=== PATIENT | female | born 1955 | race Caucasian/White ===

== ENCOUNTER 2021-03-13 11:52 | Inpatient (IN) | payer MEDICARE ==
--- NOTE | 2021-03-13 12:17 | ED ---
General Adult HPI - General Chief complaint: Shortness of Breath Stated complaint: CRUZ Time Seen by Provider: 03/13/21 12:00 Source: patient, EMS, RN notes reviewed, old records reviewed Mode of arrival: EMS Limitations: no limitations - History of Present Illness Initial comments: 65-year-old female presenting for evaluation of dyspnea which has progressed over the past 3 days. She states she's had some indolent dyspnea over the past several weeks and months but really over the past 3 days this has progressed to becoming severe. She reports a dry cough. No fever. No central chest pain. She does report bilateral lower extremity edema she also reports orthopnea. She has no previous history of CAD. No history of CHF. She is otherwise quite healthy no daily medications. - Related Data Allergies Allergy/AdvReac Type Severity Reaction Status Date / Time No Known Allergies Allergy Verified 03/13/21 12:00 Review of Systems ROS Statement: Those systems with pertinent positive or pertinent negative responses have been documented in the HPI. ROS Other: All systems not noted in ROS Statement are negative. Past Medical History History of Any Multi-Drug Resistant Organisms: None Reported Past Surgical History: Section Past Psychological History: No Psychological Hx Reported Smoking Status: Never smoker Past Alcohol Use History: None Reported Past Drug Use History: None Reported General Exam Limitations: no limitations General appearance: alert, in no apparent distress Head exam: Present: atraumatic, normocephalic Eye exam: Present: normal appearance. Absent: PERRL, EOMI ENT exam: Present: normal exam Neck exam: Present: normal inspection. Absent: tenderness, meningismus Respiratory exam: Present: respiratory distress, rales, decreased breath sounds (No air entry on the right) Cardiovascular Exam: Present: regular rate, normal rhythm, other (Distant) GI/Abdominal exam: Present: soft. Absent: distended, tenderness, guarding Extremities exam: Present: pedal edema Neurological exam: Present: alert, oriented X3, CN II-XII intact. Absent: motor sensory deficit Psychiatric exam: Present: normal affect, normal mood Skin exam: Present: warm, dry, intact. Absent: cyanosis, diaphoretic Course Vital Signs 03/13/21 03/13/21 03/13/21 11:53 12:15 12:45 Temperature 97.7 F Pulse Rate 88 86 82 Respiratory 22 24 24 Rate Blood Pressure 192/107 178/102 151/100 O2 Sat by Pulse 91 L 95 95 Oximetry 03/13/21 13:15 Temperature Pulse Rate 84 Respiratory 24 Rate Blood Pressure 165/99 O2 Sat by Pulse 95 Oximetry EKG Findings - EKG Comments: EKG Findings:: EKG: Normal sinus rhythm, right atrial enlargement, right bundle branch block artifact in the lateral precordial leads. No old for comparison. Medical Decision Making - Medical Decision Making 65-year-old female with 3 days of worsening dyspnea. Patient is tachypneic with no air entry on the right. X-rays performed, showing whiteout on the right with likely effusion. Some patient's has an elevated white blood cell count, elevat ed hemoglobin. She has a hyponatremia of 116. She has a elevated AST, ALT, and alkaline phosphatase. I did perform CT angiography of the chest and CT of the abdomen pelvis with contrast. This is suggestive of a lung mass with associated effusion which is quite large. Additionally there is metastatic changes to the liver and sacrum. I did discuss case with [facility] physician's Dr. Kee, and Dr. Herman leyva for pulmonology. - Lab Data Result diagrams: 03/13/21 12:05 03/13/21 12:05 Lab Results 03/13/21 03/13/21 03/13/21 Range/Units 12:05 12:05 12:05 WBC 16.2 H (3.8-10.6) k/uL RBC 5.63 H (3.80-5.40) m/uL Hgb 17.6 H (11.4-16.0) gm/dL Hct 51.1 H (34.0-46.0) % MCV 90.7 (80.0-100.0) fL MCH 31.3 (25.0-35.0) pg MCHC 34.5 (31.0-37.0) g/dL RDW 11.1 L (11.5-15.5) % Plt Count 319 (150-450) k/uL MPV 7.6 Neutrophils % 89 % Lymphocytes % 3 % Monocytes % 6 % Eosinophils % 1 % Basophils % 0 % Neutrophils # 14.4 H (1.3-7.7) k/uL Lymphocytes # 0.5 L (1.0-4.8) k/uL Monocytes # 1.0 (0-1.0) k/uL Eosinophils # 0.2 (0-0.7) k/uL Basophils # 0.0 (0-0.2) k/uL PT 11.8 (9.0-12.0) sec INR 1.1 (<1.2) APTT 23.1 (22.0-30.0) sec Sodium 116 L* (137-145) mmol/L Potassium 4.1 (3.5-5.1) mmol/L Chloride 78 L (98-107) mmol/L Carbon Dioxide 28 (22-30) mmol/L Anion Gap 10 mmol/L BUN 12 (7-17) mg/dL Creatinine 0.35 L (0.52-1.04) mg/dL Est GFR (CKD-EPI)AfAm >90 (>60 ml/min/1.73 sqM) Est GFR (CKD-EPI)NonAf >90 (>60 ml/min/1.73 sqM) Glucose 125 H (74-99) mg/dL Plasma Lactic Acid Hector (0.7-2.0) mmol/L Calcium 9.9 (8.4-10.2) mg/dL Magnesium 1.8 (1.6-2.3) mg/dL Total Bilirubin 1.0 (0.2-1.3) mg/dL AST 86 H (14-36) U/L ALT 63 H (4-34) U/L Alkaline Phosphatase 254 H (38-126) U/L Troponin I (0.000-0.034) ng/mL NT-Pro-B Natriuret Pep pg/mL Total Protein 6.7 (6.3-8.2) g/dL Albumin 4.0 (3.5-5.0) g/dL Coronavirus (PCR) (Not Detectd) 03/13/21 03/13/21 03/13/21 Range/Units 12:05 12:05 12:05 WBC (3.8-10.6) k/uL RBC (3.80-5.40) m/uL Hgb (11.4-16.0) gm/dL Hct (34.0-46.0) % MCV (80.0-100.0) fL MCH (25.0-35.0) pg MCHC (31.0-37.0) g/dL RDW (11.5-15.5) % Plt Count (150-450) k/uL MPV Neutrophils % % Lymphocytes % % Monocytes % % Eosinophils % % Basophils % % Neutrophils # (1.3-7.7) k/uL Lymphocytes # (1.0-4.8) k/uL Monocytes # (0-1.0) k/uL Eosinophils # (0-0.7) k/uL Basophils # (0-0.2) k/uL PT (9.0-12.0) sec INR (<1.2) APTT (22.0-30.0) sec Sodium (137-145) mmol/L Potassium (3.5-5.1) mmol/L Chloride (98-107) mmol/L Carbon Dioxide (22-30) mmol/L Anion Gap mmol/L BUN (7-17) mg/dL Creatinine (0.52-1.04) mg/dL Est GFR (CKD-EPI)AfAm (>60 ml/min/1.73 sqM) Est GFR (CKD-EPI)NonAf (>60 ml/min/1.73 sqM) Glucose (74-99) mg/dL Plasma Lactic Acid Hector 1.4 (0.7-2.0) mmol/L Calcium (8.4-10.2) mg/dL Magnesium (1.6-2.3) mg/dL Total Bilirubin (0.2-1.3) mg/dL AST (14-36) U/L ALT (4-34) U/L Alkaline Phosphatase (38-126) U/L Troponin I <0.012 (0.000-0.034) ng/mL NT-Pro-B Natriuret Pep 312 pg/mL Total Protein (6.3-8.2) g/dL Albumin (3.5-5.0) g/dL Coronavirus (PCR) (Not Detectd) 03/13/21 Range/Units 12:05 WBC (3.8-10.6) k/uL RBC (3.80-5.40) m/uL Hgb (11.4-16.0) gm/dL Hct (34.0-46.0) % MCV (80.0-100.0) fL MCH (25.0-35.0) pg MCHC (31.0-37.0) g/dL RDW (11.5-15.5) % Plt Count (150-450) k/uL MPV Neutrophils % % Lymphocytes % % Monocytes % % Eosinophils % % Basophils % % Neutrophils # (1.3-7.7) k/uL Lymphocytes # (1.0-4.8) k/uL Monocytes # (0-1.0) k/uL Eosinophils # (0-0.7) k/uL Basophils # (0-0.2) k/uL PT (9.0-12.0) sec INR (<1.2) APTT (22.0-30.0) sec Sodium (137-145) mmol/L Potassium (3.5-5.1) mmol/L Chloride (98-107) mmol/L Carbon Dioxide (22-30) mmol/L Anion Gap mmol/L BUN (7-17) mg/dL Creatinine (0.52-1.04) mg/dL Est GFR (CKD-EPI)AfAm (>60 ml/min/1.73 sqM) Est GFR (CKD-EPI)NonAf (>60 ml/min/1.73 sqM) Glucose (74-99) mg/dL Plasma Lactic Acid Hector (0.7-2.0) mmol/L Calcium (8.4-10.2) mg/dL Magnesium (1.6-2.3) mg/dL Total Bilirubin (0.2-1.3) mg/dL AST (14-36) U/L ALT (4-34) U/L Alkaline Phosphatase (38-126) U/L Troponin I (0.000-0.034) ng/mL NT-Pro-B Natriuret Pep pg/mL Total Protein (6.3-8.2) g/dL Albumin (3.5-5.0) g/dL Coronavirus (PCR) Not Detected (Not Detectd) Critical Care Time Critical Care Time: Yes Total Critical Care Time: 35 Disposition Clinical Impression: Lung mass, Pleural effusion, Hyponatremia Disposition: [facility]MITT[facility] Condition: Serious Is patient prescribed a controlled substance at d/c from ED?: No Referrals: Trista Perez MD [Primary Care Provider] - 1-2 days Decision to Admit Reason: Admit from EC Decision Date: 03/13/21 Decision Time: 15:00
[2021-03-13 12:32] LABS: INR 1.1 (<1.2); Partial Thromboplastin Time 23.1 sec (22.0-30.0); Prothrombin Time 11.8 sec (9.0-12.0)
--- NOTE | 2021-03-13 12:37 | XR ---
EXAMINATION TYPE: XR chest 2V DATE OF EXAM: 03/13/2021 COMPARISON: None INDICATION: Difficulty in breathing TECHNIQUE: Frontal and lateral views of the chest are obtained. FINDINGS: The heart size is normal. The pulmonary vasculature is trauma. There is diffuse opacification through the right lung. Some deviation of the trachea to the right is present. Diffuse increased scattered infiltrates within the left lung. Correlate for atypical pneumon ia. Small right pleural effusion is likely present.. IMPRESSION: 1. Diffuse increased lung markings present bilaterally. Correlate for atypical pneumonia. Small right pleural effusion may be present. Right apical atelectasis may be present. Follow-up exams are recomm ended.
[2021-03-13 12:38] LABS: Basophils % (A) 0 %; Eosinophils # (A) 0.2 k/uL (0-0.7); Eosinophils % (A) 1 %; HCT 51.1 % (34.0-46.0); HGB 17.6 gm/dL (11.4-16.0); Lymphocytes # (A) 0.5 k/uL (1.0-4.8); Lymphocytes % (A) 3 %; MCH 31.3 pg (25.0-35.0); MCHC 34.5 g/dL (31.0-37.0); MCV 90.7 fL (80.0-100.0); Mean Platelet Volume 7.6; Monocytes % (A) 6 %; Neutrophils # (A) 14.4 k/uL (1.3-7.7); Neutrophils % (A) 89 %; Platelet Count 319 k/uL (150-450); RBC 5.63 m/uL (3.80-5.40); RDW 11.1 % (11.5-15.5); WBC 16.2 k/uL (3.8-10.6)
[2021-03-13 12:43] LABS: ALT 63 U/L (4-34); African American GFR (CKD) >90 (>60 ml/min/1.73 sqM); Anion Gap 10 mmol/L; Blood Urea Nitrogen 12 mg/dL (7-17); Calcium 9.9 mg/dL (8.4-10.2); Carbon Dioxide 28 mmol/L (22-30); Chloride 78 mmol/L (98-107); Glucose 125 mg/dL (74-99); Non-African American GFR(CKD) >90 (>60 ml/min/1.73 sqM); Total Protein 6.7 g/dL (6.3-8.2)
[2021-03-13 12:44] LABS: AST 86 U/L (14-36); Magnesium 1.8 mg/dL (1.6-2.3); Potassium 4.1 mmol/L (3.5-5.1); Sodium 116 mmol/L (137-145)
[2021-03-13 12:45] LABS: Alkaline Phosphatase 254 U/L (38-126)
[2021-03-13] MEDS ORDERED: cefTRIAXone IN SWFI 1,000 MG/10 ML SYRINGE IVP STA (12:49)
[2021-03-13] MEDS ORDERED: AZITHROMYCIN 500 MG in SODIUM CHLORIDE 0.9% 250 ML IVPB STA (12:49)
--- NOTE | 2021-03-13 13:54 | CT ---
CT CHEST FOR PULMONARY EMBOLISM. EXAMINATION TYPE: CT angio chest DATE OF EXAM: 03/13/2021 INDICATION: CRUZ, wt. loss CT DLP: 172.6 mGycm, Automated exposure control for dose reduction was used. CONTRAST: Patient injected with 100 mL of Isovue 370. COMPARISON: None TECHNIQUE: CT of the chest is performed on a spiral scan at 2 mm thick sections. Study is performed with intravenous contrast timed for evaluation for pulmonary embolism. This will limit additional po rtions of the evaluation. 3-D MIP images reconstructed by the technologist are reviewed on the compu ter in the coronal and sagittal planes. FINDINGS: No persistent filling defects are evident to suggest an acute pulmonary embolism. No mediastinal or hilar adenopathy enlarged by CT criteria is evident. The ascending aorta diameter at the level of the main pulmonary artery is 3.2 cm. The main pulmonary artery diameter at the bifur cation is 2.8 cm. Small to moderate-sized right pleural effusion is present. There is consolidation in the anterior rig ht lung. Some right middle lobe consolidation is present. Patchy infiltrates at the right lung base a nd groundglass opacities are within the left mid lung. Findings are nonspecific but can be compatible with atypical pneumonia. A 0.4 cm nodules in the periphery of the left upper lung field. Series 401 image 26. 0.9 cm nodular d ensities in the left midlung. Series 401 image 53. Posterior densities are present on the left hilar region measuring 1.3 cm, series 401 image 56, and 0.9 cm. Series 401 image 59. There is a 0.6 cm nodu le in the left infrahilar region. Series 401 image 87. A 0.8 cm nodules within the left infrahilar r egion. Series 401 image 93. Right-sided lung masses would be difficult to exclude. Limited CT section through the upper abdomen are unremarkable. IMPRESSIONS: 1. Small to moderate right pleural effusion. 2. Scattered infiltrates are nonspecific. Consider atypical pneumonia. 3. Larger consolidations or masses within the right lung with additional small nodules present identi fied on the left. Primary and metastatic disease should also be considered within the differential. 4. No acute pulmonary embolism identified.
[2021-03-13] MEDS ORDERED: NITROGLYCERIN SL TABS 0.4 MG TAB SUBLINGUAL STA (13:58)
[2021-03-13] MEDS: SODIUM CHLORIDE 0.9% 1,000 ML IV SCH (13:58)
--- NOTE | 2021-03-13 14:01 | CT ---
EXAMINATION TYPE: CT abdomen pelvis w con DATE OF EXAM: 03/13/2021 COMPARISON: None INDICATION: CRUZ, wt. loss DLP: 465.3 mGycm, Automated exposure control for dose reduction was used. CONTRAST: 100 mL of Isovue 370. Study performed without Oral Contrast TECHNIQUE: Axial images were obtained from above the diaphragm to the pubic rami in the axial plane a t 5 mm thick sections. Reconstructed images are reviewed on the computer in the coronal plane. FINDINGS: Limited CT sections are obtained the lung bases. Please see CT chest same date for additional finding s. CT ABDOMEN: Liver: There is a 3.2 cm hypodensity was somewhat irregular margins within the mid right lobe liver. Some infiltrative type process may be within the left lobe liver. Density is 54 suggesting solid lesi on. A metastatic lesion should be considered. There are some additional small hypodensities within th e more inferior portion of the liver not typical for simple cysts. Additional small metastatic lesion should be considered. Spleen: Normal Pancreas: Normal Adrenal glands: The adrenal glands are normal. Gallbladder: Normal Kidneys: No masses are evident. No hydronephrosis is present. Cortical renal cysts are present bila terally, larger on the left.. There is some malpositioning of the right kidney inferior. Delayed fannie ges were obtained through the kidneys, which remain unremarkable. Aorta: Vascular calcification is within the aorta. Inferior vena cava: Normal. CT PELVIS: The study is without oral contrast limiting bowel evaluation. Some fecal debris is within the colon. There are a few scattered diverticuli within the sigmoid colon. Bowel evaluation is limited. Appendix: There appears to be the air-filled appendix on the coronal plane images in the midline is n ormal. This is adjacent to a fluid-filled distal loop of ileum. Urinary bladder: Normal. Genitourinary structures: Uterus is unremarkable. Adnexal regions appear normal. Osseous structures: Couple of sclerotic metastasis may be within the right iliac wing. Additional scl erotic metastases may be in the left sacral alar. Facet degenerative changes are present. There are s cattered small sclerotic areas within the vertebral bodies may be early sclerotic metastases. IMPRESSIONS: 1. Mass within the liver suspicious for metastatic lesion. Additional small metastatic lesions may b e more inferior within the liver. 2. Suggestion of sclerotic metastases within sacrum and right ilium. 3. Additional suspicious findings within the chest. Please see CT chest report same date.
[2021-03-13] MEDS ORDERED: FUROSEMIDE 10 MG/ML 4 ML VIAL IV STA (14:02)
[2021-03-13] MEDS ORDERED: HYDROmorphone 0.5 MG/0.5 ML SYRINGE IVP PRN (14:55)
--- NOTE | 2021-03-13 15:47 | P.CNPUL ---
History of Present Illness Consult date: 03/13/21 Reason for consult: dyspnea History of present illness: 65-year-old here patient came into the emergency department because of worsening shortness of breath a few weeks duration. She is extremely weak, cachectic, malnourished and emancipated. She has also developed some abdominal swelling and increased lower extremity swelling over this past few months and the patient's health has been progressively getting worse. Her past medical history is negative patient does not see a physician on a regular basis. She is not a smoker. The white cell count was at 16.2 with hemoglobin of 17.6 and normal coagulation profile. Sodium level is at home and 16 with a potassium level of 4.1 BUN is 12 creatinine 0.3 LFTs are abnormal with an AST of 86, ALT of 63 with alkaline phosphatase of 254. COVID 19 testing was negative. Chest x-ray showed diffuse increased interstitial markings bilaterally and a small right-sided pleural effusion and volume loss on the right side. CT of the chest showed a moderate-sized right-sided pleural effusion. There was consolidation of the right anterior and right middle lobe. In fact the right upper lobe is very much atelectatic and there is complete cutoff of the right upper lobe bronchus which is not visualized on the CAT scan of the chest. There are several other pulmonary nodules scattered in the left upper lobe measuring 4 mm in the left mid lung measuring 9 mm in the left hilar region measuring 1.3 cm and in the left infrahilar area measuring 6 mm in addition to right-sided abnormalities as mentioned. No acute pulmonary embolism was identified. Computed tomography scan of the abdomen and pelvis showed a mass within the liver with 3.2 cm hypodensity an irregular margin in the right lobe of the liver. In same time metastatic lesions were also seen there were smaller in size. Sclerotic metastatic involvement of the sacrum and the right ilium Review of Systems Constitutional: Reports anorexia, Reports fatigue, Reports poor appetite, Reports weakness, Reports weight loss Eyes: denies as per HPI, denies blurred vision, denies bulging eye, denies decreased vision, denies diplopia, denies discharge, denies dry eye, denies irritation, denies itching, denies pain, denies photophobia, denies loss of peripheral vision, denies loss of vision, denies tunnel vision/blind spots Ears: deny: decreased hearing, ear discharge, earache, tinnitus Ears, nose, mouth and throat: Reports as per HPI Breasts: absent: as per HPI, change in shape, gynecomastia, masses, nipple discharge, pain, skin changes, swelling Cardiovascular: Reports decreased exercise tolerance, Reports dyspnea on exertion, Reports edema Respiratory: Reports cough, Reports dyspnea Gastrointestinal: Reports as per HPI, Reports loss of appetite Genitourinary: Reports as per HPI Menstruation: Reports as per HPI Musculoskeletal: Reports as per HPI, Reports muscle weakness Musculoskeletal: bilateral: ankle swelling, absent: ankle pain, ankle stiffness, as per HPI, elbow pain, elbow stiffness, elbow swelling, foot pain, foot stiffness, foot swelling, hand pain, hand stiffness, hand swelling, hip pain, hip stiffness, hip swelling, knee pain, knee stiffness, knee swelling, shoulder pain, shoulder stiffness, shoulder swelling, wrist pain, wrist stiffness, wrist swelling Integumentary: Reports as per HPI Neurological: Reports as per HPI Psychiatric: Reports as per HPI Endocrine: Reports fatigue Hematologic/Lymphatic: Reports as per HPI Allergic/Immunologic: Reports as per HPI Past Medical History History of Any Multi-Drug Resistant Organisms: None Reported Past Surgical History: Section Past Psychological History: No Psychological Hx Reported Smoking Status: Never smoker Past Alcohol Use History: None Reported Past Drug Use History: None Reported Medications and Allergies Home Medications Medication Instructions Recorded Confirmed Type No Known Home Medications 03/13/21 03/13/21 History Allergies Allergy/AdvReac Type Severity Reaction Status Date / Time No Known Allergies Allergy Verified 03/13/21 15:03 Physical Exam Vitals: Vital Signs Temp Pulse Resp BP Pulse Ox 03/13/21 13:15 84 24 165/99 95 03/13/21 12:45 82 24 151/100 95 03/13/21 12:15 86 24 178/102 95 03/13/21 11:53 97.7 F 88 22 192/107 91 L Intake and Output 03/13/21 03/13/21 03/13/21 06:59 14:59 22:59 Other: Weight 56.699 kg Cachectic, thin and frail, and emaciated, BMI of 20.8 Head exam was generally normal. There was no scleral icterus or corneal arcus. Mucous membranes were moist. Neck was supple and without jugular venous distension, thyromegaly, or carotid bruits. Carotids were easily palpable bilaterally. There was bilateral supraclavicular lymphadenopathy palpated in the cervical and supraclavicular chains Lungs sounds are diminished in the right lung base along with dullness to percussion Cardiac exam revealed the PMI to be normally situated and sized. The rhythm was regular and no extrasystoles were noted during several minutes of auscultation. The first and second heart sounds were normal and physiologic splitting of the second heart sound was noted. There were no murmurs, rubs, clicks, or gallops. Abdominal exam revealed normal bowel sounds. The abdomen was soft, non-tender, and without masses, organomegaly, or appreciable enlargement of the abdominal aorta. Extremities revealed +1-2 pitting edema no cyanosis or clubbing Neurologically appropriate awake and alert 3 Examination of the skin revealed no evidence of significant rashes, suspicious appearing nevi or other concerning lesions. 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 Based on my review of the CAT scan of the chest that is a mass obstructing the right upper lobe bronchus causing complete atelectasis and collapse of the right upper lobe and volume loss in addition to various areas of macular nodularity bilaterally and groundglass changes and a moderate-sized right-sided pleural effusion. On examination the patient has cervical lymphadenopathy bilaterally and supraclavicular lymphadenopathy and the CAT scan of the abdomen and pelvis showed hepatic metastases with a 3.2 cm right hepatic lobe mass and skeletal metastases to the sacral bone and the right ilium. Patient is a lifetime nonsmoker. This does not rule out the possibility of metastatic lung cancer. Other forms of malignancies cannot be completly ruled out. 2 hypochloremic hyponatremia, likely subacute to chronic as the patient is not having major symptoms. Rule out underlying SIADH. 3 increased lower extremity edema 4 ongoing constitutions symptomscachexia malnourishment with a BMI of 20.8 5 abnormal LFTs secondary to hepatitic metastases Plan This patient will need a tissue diagnosis. We'll make consider doing a thorace ntesis on her first thing in the morning to improve her breathing. The pleural fluid may also give us a diagnosis. Nevertheless we should be careful knowing that the right upper lobe was completely atelectatic with endobronchial tumor in the right upper lobe and a thoracentesis may give us a pneumothorax ex vacuo. based on that, I suggested obtaining asmall amount of fluid in the order of 200- 300 mL for diagnostic purposes and following that the patient may also benefit from bronchoscopy and evaluation of the right upper lobe bronchus to assess airway patency. Her right upper lobe was completely collapsed. She has other signs where biopsies can be taken including liver and cervical lymph nodes. Check serum osmolality, urine osmolality and urine sodium Monitor sodium level currently on normal saline Extremities poor prognosis based on the above-mentioned comorbidities. Oncologi c consultation.
[2021-03-13] MEDS ORDERED: MAG HYDROX/AL HYDROX/SIMETH 30 ML CUP PO PRN (16:18)
--- NOTE | 2021-03-13 16:24 | P.HPIM ---
History of Present Illness H&P Date: 03/13/21 This is a 65-year-old female with no known past medical history that presented to the emergency room with worsening shortness of breath and bilateral lower extremity edema. Patient said that shortness of breath started 2 weeks ago and is being getting progressively worse. In the last few days she also noted worsening lower extremity edema. Patient appeared cachectic in the ER and reported decreased appetite for the last few months. She admits of losing weight as well. She does not have any follow-up with any doctors and has been active her entire life. She never smoked cigarettes in the past. She was evaluated in the ER and extensive imaging showed evidence of metastatic cancer involving the liver and the sacrum. Also noted was lung nodules and bilateral pleural effusion. Patient also noted to have significant hyponatremia with sodium level of 116. She'll be admitted to the hospital for further management. Review of Systems Review of system: 14 points review of systems were obtained and were negative except to what were mentioned in the HPI. Past Medical History History of Any Multi-Drug Resistant Organisms: None Reported Past Surgical History: Section Past Psychological History: No Psychological Hx Reported Smoking Status: Never smoker Past Alcohol Use History: None Reported Past Drug Use History: None Reported Medications and Allergies Home Medications Medication Instructions Recorded Confirmed Type No Known Home Medications 03/13/21 03/13/21 History Allergies Allergy/AdvReac Type Severity Reaction Status Date / Time No Known Allergies Allergy Verified 03/13/21 15:03 Physical Exam Vitals: Vital Signs Temp Pulse Resp BP Pulse Ox 03/13/21 13:15 84 24 165/99 95 03/13/21 12:45 82 24 151/100 95 03/13/21 12:15 86 24 178/102 95 03/13/21 11:53 97.7 F 88 22 192/107 91 L Intake and Output 03/13/21 03/13/21 03/13/21 06:59 14:59 22:59 Other: Weight 56.699 kg General: The patient is awake and alert, in no distress. She appears cachectic and chronically ill Eye: there is normal conjunctiva bilaterally. Neck: The neck is supple, there is no JVD. Cardiovascular: Normal S1-S2, no S3-S4, no murmurs. Respiratory: Lungs clear to auscultation bilaterally Gastrointestinal: Abdomen is soft, nontender Musculoskeletal: There is +2 pedal edema. Neurological:. Speech is normal. Skin: Skin is warm and dry Results CBC & Chem 7: 03/13/21 12:05 03/13/21 12:05 Labs: Abnormal Lab Results - Last 24 Hours (Table) 03/13/21 03/13/21 Range/Units 12:05 12:05 WBC 16.2 H (3.8-10.6) k/uL RBC 5.63 H (3.80-5.40) m/uL Hgb 17.6 H (11.4-16.0) gm/dL Hct 51.1 H (34.0-46.0) % RDW 11.1 L (11.5-15.5) % Neutrophils # 14.4 H (1.3-7.7) k/uL Lymphocytes # 0.5 L (1.0-4.8) k/uL Sodium 116 L* (137-145) mmol/L Chloride 78 L (98-107) mmol/L Creatinine 0.35 L (0.52-1.04) mg/dL Glucose 125 H (74-99) mg/dL AST 86 H (14-36) U/L ALT 63 H (4-34) U/L Alkaline Phosphatase 254 H (38-126) U/L Assessment and Plan Assessment: This is a 65-year-old female with no known past medical history that does not usually follow-up with any doctors presented to the emergency room with worsening shortness of breath and lower extremity edema. Patient has extensive workup in the ER with computed tomography scan of the chest showing bilateral lung consolidation/masses and bilateral pleural effusion. Computed tomography scan of the abdomen showing liver masses suspicious for metastatic disease with sclerotic metastasis into the sacrum and right ilium. Patient will be admitted to the hospital for further management of her medical problems noted below. 1. Metastatic cancer of unknown origin, imaging as above. Plan for diagnostic thoracentesis tomorrow for tissue sampling. I would consult oncology for establishment of care 2. 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 Sodium level on presentation 116. Nephrology consulted for further evaluation. Started on gentle IV fluid hydration with normal saline at 75 mL per hour. I will continue to monitor her sodium level closely every 4 hours. 3. Bilateral lower extremity edema, ultrasound ordered to rule out DVT 4. Acute hypoxic respiratory failure secondary to above 5. CODE STATUS, patient is full code. Discussed in details with her today in the emergency room
--- NOTE | 2021-03-13 18:38 | US ---
EXAMINATION TYPE: US venous doppler duplex LE DATE OF EXAM: 03/13/2021 5:11 PM COMPARISON: NONE CLINICAL HISTORY: Rule out DVT. No hx of DVT. Patient has bilateral leg edema. SIDE PERFORMED: Bilateral TECHNIQUE: The lower extremity deep venous system is examined utilizing real time linear array sonog grady with graded compression, doppler sonography and color-flow sonography. VESSELS IMAGED: Common Femoral Vein Deep Femoral Vein Greater Saphenous Vein * Femoral Vein Popliteal Vein Small Saphenous Vein * Proximal Calf Veins (* superficial vessels) Right Leg: Color flow seen in all veins imaged at this time. CFV and GSV appear to compress incomple tely, thick [place] versus possible chronic internal echoes along vessel wall seen at these levels. Left Leg: Color flow seen in all veins imaged at this time. CFV, GSV and FV prox/DFV appear to comp ress incompletely, thick [place] versus possible chronic internal echoes along vessel wall seen at thes e levels. IMPRESSION: There is incomplete compressibility of the femoral vein suggestive of some mild chronic deep vein thrombosis. No evidence of acute deep vein thrombosis.
[2021-03-13 19:55] LABS: African American GFR (CKD) >90 (>60 ml/min/1.73 sqM); Anion Gap 8 mmol/L; Blood Urea Nitrogen 12 mg/dL (7-17); Calcium 9.2 mg/dL (8.4-10.2); Carbon Dioxide 31 mmol/L (22-30); Chloride 77 mmol/L (98-107); Glucose 127 mg/dL (74-99); Non-African American GFR(CKD) >90 (>60 ml/min/1.73 sqM); Potassium 3.6 mmol/L (3.5-5.1)
[2021-03-13 20:04] LABS: Sodium 116 mmol/L (137-145)
[2021-03-13] MEDS: ONDANSETRON 4 MG/2 ML VIAL IVP PRN (21:58)
[2021-03-13 23:49] LABS: African American GFR (CKD) >90 (>60 ml/min/1.73 sqM); Anion Gap 8 mmol/L; Blood Urea Nitrogen 12 mg/dL (7-17); Calcium 9.2 mg/dL (8.4-10.2); Carbon Dioxide 31 mmol/L (22-30); Chloride 78 mmol/L (98-107); Glucose 119 mg/dL (74-99); Non-African American GFR(CKD) >90 (>60 ml/min/1.73 sqM); Potassium 3.6 mmol/L (3.5-5.1)
[2021-03-14 00:23] LABS: Sodium 117 mmol/L (137-145)
[2021-03-14 03:10] LABS: African American GFR (CKD) >90 (>60 ml/min/1.73 sqM); Anion Gap 8 mmol/L; Blood Urea Nitrogen 13 mg/dL (7-17); Calcium 9.3 mg/dL (8.4-10.2); Carbon Dioxide 30 mmol/L (22-30); Chloride 78 mmol/L (98-107); Glucose 117 mg/dL (74-99); Non-African American GFR(CKD) >90 (>60 ml/min/1.73 sqM)
[2021-03-14 03:12] LABS: Potassium 3.7 mmol/L (3.5-5.1); Sodium 116 mmol/L (137-145)
[2021-03-14] MEDS: ONDANSETRON 4 MG/2 ML VIAL IVP PRN ×3 (06:11→20:39)
[2021-03-14 06:26] LABS: Basophils % (A) 0 %; Eosinophils # (A) 0.3 k/uL (0-0.7); Eosinophils % (A) 2 %; HCT 48.1 % (34.0-46.0); HGB 15.9 gm/dL (11.4-16.0); Lymphocytes # (A) 0.7 k/uL (1.0-4.8); Lymphocytes % (A) 5 %; MCH 30.9 pg (25.0-35.0); MCHC 33.1 g/dL (31.0-37.0); MCV 93.6 fL (80.0-100.0); Monocytes # (A) 1.2 k/uL (0-1.0); Monocytes % (A) 9 %; Neutrophils % (A) 81 %; Platelet Count 319 k/uL (150-450); RBC 5.14 m/uL (3.80-5.40); RDW 11.3 % (11.5-15.5); WBC 13.7 k/uL (3.8-10.6)
[2021-03-14 07:08] LABS: African American GFR (CKD) >90 (>60 ml/min/1.73 sqM); Anion Gap 5 mmol/L; Blood Urea Nitrogen 12 mg/dL (7-17); Calcium 9.6 mg/dL (8.4-10.2); Carbon Dioxide 35 mmol/L (22-30); Chloride 79 mmol/L (98-107); Glucose 116 mg/dL (74-99); Non-African American GFR(CKD) >90 (>60 ml/min/1.73 sqM); Potassium 3.8 mmol/L (3.5-5.1)
[2021-03-14 07:25] LABS: Sodium 119 mmol/L (137-145)
[2021-03-14 08:25] LABS: Glucose,Whole Blood 111 mg/dL (75-99)
[2021-03-14] MEDS: SODIUM CHLORIDE 0.9% 1,000 ML IV SCH ×2 (08:31→18:50)
[2021-03-14] MEDS: ENOXAPARIN 40 MG/0.4 ML SYRINGE SQ SCH (08:37)
--- NOTE | 2021-03-14 11:47 | US ---
EXAMINATION TYPE: US chest DATE OF EXAM: 03/14/2021 COMPARISON: NONE CLINICAL HISTORY: dyspnea. pleural effusion TECHNIQUE: Targeted ultrasound of the posterior lower Bilat EXAM MEASUREMENTS: Right Pleural Effusion pocket size: 10.6 cm Right skin surface to fluid distance: 2.9 cm Left Pleural Effusion pocket size: 0 cm Right side marked for possible thoracentesis outside the dept. Left side NOT marked Pulmonologists are able to review the images in the patient?s EMR. IMPRESSIONS: 1. Right pleural effusion
--- NOTE | 2021-03-14 12:00 | ECHOF ---
Referral Reason: MEASUREMENTS -------- HEIGHT: 165.1 cm WEIGHT: 56.7 kg BP: IVSd: 1.3 cm (0.6 - 1.1) LVIDd: 2.8 cm (3.9 - 5.3) LVPWd: 1.6 cm (0.6 - 1.1) IVSs: 1.4 cm LVIDs: 2.2 cm LVPWs: 1.6 cm LAESV Index (A-L): 13.79 ml/m Ao Diam: 3.0 cm (2.0 - 3.7) AV Cusp: 2.4 cm (1.5 - 2.6) LA Diam: 3.3 cm (2.7 - 3.8) MV EXCURSION: 11.236 mm (> 18.000) MV EF SLOPE: 34 mm/s (70 - 150) EPSS: 0.5 cm MV E Igor: 0.61 m/s MV DecT: 147 ms MV A Igor: 0.97 m/s MV E/A Ratio: 0.64 RAP: 5.00 mmHg RVSP: 43.59 mmHg FINDINGS -------- This was a technically good study. The left ventricular size is normal. There is moderate concentric left ventricular hypertrophy. O verall left ventricular systolic function is normal with, an EF between 55 - 60 %. The diastolic fi lling pattern is normal for the age of the patient 11.28. The right ventricle is normal in size. The left atrial size is normal. Normal LA size by volume 22+/-6 ml/m2. The right atrial size is normal. The aortic valve is trileaflet and appears structurally normal. The mitral valve is normal. Mild mitral regurgitation is present. The tricuspid valve appears structurally normal. Mild tricuspid regurgitation present. There is m ild pulmonary hypertension. The right ventricular systolic pressure, as measured by Doppler, is 43. 59mmHg. There is no pulmonic regurgitation present. The aortic root size is normal. Normal inferior vena cava with normal inspiratory collapse consistent with estimated right atrial pre ssure of 5 mmHg. There is no pericardial effusion. CONCLUSIONS -------- 1. The left ventricular size is normal. 2. There is moderate concentric left ventricular hypertrophy. 3. Overall left ventricular systolic function is normal with, an EF between 55 - 60 %. 4. The diastolic filling pattern is normal for the age of the patient 11.28 5. Mild mitral regurgitation is present. 6. Mild tricuspid regurgitation present. 7. There is mild pulmonary hypertension. 8. The right ventricular systolic pressure, as measured by Doppler, is 43.59mmHg. 9. There is no pericardial effusion. VISUAL MANAGER: Malena Deluna RDCS
[2021-03-14] MEDS: AZITHROMYCIN 250 MG TAB PO SCH (12:27)
--- NOTE | 2021-03-14 13:33 | P.PN ---
Subjective Progress Note Date: 03/14/21 Principal diagnosis: Acute COVID-19 pneumonia On 03/14/2021 patient seen in follow-up in the emergency department where she is awaiting a bed on selective care unit, she is currently on 15 L of oxygen pulse ox is 98%, when the patient gets up out of bed her pulse ox drops 65, she easily desaturates, she does recover with rest. Is awake and alert, currently seems to be in no acute distress, she is in sinus mechanism with a rate of 86, blood pressure stable, blood pressure is 110/79, afebrile. Patient continues on azithromycin and Rocephin for empiric antibiotic coverage, she is on 0.9 normal saline at a rate of 75 ML per hour, she is on GI and DVT prophylaxis. Labs have been reviewed, her sodium is 119, white blood cell count is 13.7, hemoglobin is 15.9, BUN is 12 and creatinine 0.62. Echocardiogram has been completed showing EF of 55-60%, mild pulmonary hypertension with right-sided pressure of 43.5 mmHg. Lower extremity Dopplers showed possibility of a chronic DVTs. Ultrasound the chest has been completed showing a right pleural effusion pocket of 10.6 cm. patient denies any chest pain, no hemoptysis. The findings of the CT chest and chest x-ray have been reviewed and there is a high possibility of metastatic lung carcinoma Objective - Vital Signs Vital signs: Vital Signs Temp 97.9 F 03/14/21 04:00 Pulse 86 03/14/21 12:00 Resp 18 03/14/21 12:00 BP 114/74 03/14/21 12:00 Pulse Ox 98 03/14/21 12:00 Intake & Output 03/13/21 03/14/21 03/14/21 18:59 06:59 18:59 Output Total 2200 Balance -2200 Weight 56.699 kg 56.699 kg Output: Urine 2200 Other: # Voids 0 - Exam GENERAL EXAM: Alert, very pleasant, 65-year-old frail looking white female, on 2 L of oxygen, comfortable in no apparent distress. HEAD: Normocephalic/atraumatic. EYES: Normal reaction of pupils, equal size. Conjunctiva pink, sclera white. NOSE: Clear with pink turbinates. THROAT: No erythema or exudates. NECK: No masses, no JVD, no thyroid enlargement, no adenopathy. CHEST: No chest wall deformity. Symmetrical expansion. LUNGS: Diminished breath sounds over right lung with no crackles, wheeze, rhonchi or dullness. CVS: Regular rate and rhythm, normal S1 and S2, no gallops, no murmurs, no rubs ABDOMEN: Soft, nontender. No hepatosplenomegaly, normal bowel sounds, no guarding or rigidity. EXTREMITIES: No clubbing, no edema, no cyanosis, 2+ pulses and upper and lower extremities. MUSCULOSKELETAL: Muscle strength and tone normal. SPINE: No scoliosis or deformity SKIN: No rashes CENTRAL NERVOUS SYSTEM: Alert and oriented -3. No focal deficits, tone is normal in all 4 extremities. PSYCHIATRIC: Alert and oriented -3. Appropriate affect. Intact judgment and insight. - Labs CBC & Chem 7: 03/14/21 06:10 03/14/21 11:54 Labs: Abnormal Lab Results - Last 24 Hours (Table) 03/13/21 03/13/21 03/14/21 Range/Units 19:11 22:52 02:17 WBC (3.8-10.6) k/uL Hct (34.0-46.0) % RDW (11.5-15.5) % Neutrophils # (1.3-7.7) k/uL Lymphocytes # (1.0-4.8) k/uL Monocytes # (0-1.0) k/uL Sodium 116 L* 117 L* 116 L* (137-145) mmol/L Chloride 77 L 78 L 78 L (98-107) mmol/L Carbon Dioxide 31 H 31 H (22-30) mmol/L Creatinine 0.45 L 0.46 L (0.52-1.04) mg/dL Glucose 127 H 119 H 117 H (74-99) mg/dL POC Glucose (mg/dL) (75-99) mg/dL 03/14/21 03/14/21 03/14/21 Range/Units 06:10 06:10 08:23 WBC 13.7 H (3.8-10.6) k/uL Hct 48.1 H (34.0-46.0) % RDW 11.3 L (11.5-15.5) % Neutrophils # 11.0 H (1.3-7.7) k/uL Lymphocytes # 0.7 L (1.0-4.8) k/uL Monocytes # 1.2 H (0-1.0) k/uL Sodium 119 L* (137-145) mmol/L Chloride 79 L (98-107) mmol/L Carbon Dioxide 35 H (22-30) mmol/L Creatinine (0.52-1.04) mg/dL Glucose 116 H (74-99) mg/dL POC Glucose (mg/dL) 111 H (75-99) mg/dL 03/14/21 Range/Units 11:54 WBC (3.8-10.6) k/uL Hct (34.0-46.0) % RDW (11.5-15.5) % Neutrophils # (1.3-7.7) k/uL Lymphocytes # (1.0-4.8) k/uL Monocytes # (0-1.0) k/uL Sodium 119 L* (137-145) mmol/L Chloride (98-107) mmol/L Carbon Dioxide (22-30) mmol/L Creatinine (0.52-1.04) mg/dL Glucose (74-99) mg/dL POC Glucose (mg/dL) (75-99) mg/dL Assessment and Plan Plan: 1 metastatic carcinoma primary lung versus metastasis to the lung. Based on my review of the CAT scan of the chest that is a mass obstructing the right upper lobe bronchus causing complete atelectasis and collapse of the right upper lobe and volume loss in addition to various areas of macular nodularity bilaterally and groundglass changes and a moderate-sized right-sided pleural effusion. On examination the patient has cervical lymphadenopathy bilaterally and supraclavicular lymphadenopathy and the CAT scan of the abdomen and pelvis showed hepatic metastases with a 3.2 cm right hepatic lobe mass and skeletal metastases to the sacral bone and the right ilium. Patient is a lifetime nonsmoker. This does not rule out the possibility of metastatic lung cancer. Other forms of malignancies cannot be completly ruled out. 2 hypochloremic hyponatremia, likely subacute to chronic as the patient is not having major symptoms. Rule out underlying SIADH. 3 increased lower extremity edema 4 ongoing constitutions symptomscachexia malnourishment with a BMI of 20.8 5 abnormal LFTs secondary to hepatitic metastases Plan: Ultrasound of the chest has been reviewed Hold Lovenox We will proceed with right-sided thoracentesis this afternoon This was discussed with the patient was agreeable to proceed Pleural fluid will be sent for cytology I performed a history & physical examination of the patient and discussed their management with my nurse practitioner, Mare Kunz. I reviewed the nurse practitioner's note and agree with the documented findings and plan of care. Lung sounds are positive for diminished breath sounds throughout the lung jain. The findings and the impression was discussed with the patient. I attest to the documentation by the nurse practitioner. Time with Patient: Greater than 30
--- NOTE | 2021-03-14 14:49 | XR ---
EXAMINATION TYPE: XR chest 1V portable DATE OF EXAM: 03/14/2021 COMPARISON: 03/13/2021 INDICATION: Status post right thoracentesis TECHNIQUE: Single frontal view of the chest is obtained. FINDINGS: The heart size is normal. The pulmonary vasculature is normal. Diffuse increased lung markings bilaterally. A small right pleural effusion is present. Loculated den sity remains at the right apex. Shift of mediastinum towards the right is evident. No pneumothorax is evident post thoracentesis. IMPRESSION: 1. Worsening bilateral lung infiltrates. 2. Small pleural effusion. No pneumothorax is evident postthoracentesis. 3. Continued opacity right apex. Consider atelectasis.
[2021-03-14 16:22] LABS: Appearance,BF Cloudy; Nucleated Cells, Body Fluid 1000 /uL; RBC, Body Fluid 400 /uL
[2021-03-14 16:50] LABS: Mononuclear WBC,Body Fluid 77 %; Polynuclear WBC,Body Fluid 22 %; Total Cells Counted,Body Fluid 100
--- NOTE | 2021-03-14 17:24 | P.PN ---
Subjective Patient is doing the same compared to yesterday. She had an episode this morning where she removed her oxygen O2 sat dropped to the low 80s. No acute events overnight reported to me by nursing staff otherwise. Objective - Vital Signs Vital signs: Vital Signs Temp 97.9 F 03/14/21 04:00 Pulse 86 03/14/21 12:00 Resp 18 03/14/21 12:00 BP 114/74 03/14/21 12:00 Pulse Ox 98 03/14/21 12:00 Intake & Output 03/13/21 03/14/21 03/14/21 18:59 06:59 18:59 Output Total 2200 Balance -2200 Weight 56.699 kg 56.699 kg Output: Urine 2200 Other: # Voids 0 - Exam General: The patient is awake and alert, in no distress Eye: there is normal conjunctiva bilaterally. Neck: The neck is supple, there is no JVD. Cardiovascular: Normal S1-S2, no S3-S4, no murmurs. Respiratory: Lungs clear to auscultation bilaterally Gastrointestinal: Abdomen is soft, nontender Musculoskeletal: There is no pedal edema. Neurological:. Speech is normal. Skin: Skin is warm and dry - Labs CBC & Chem 7: 03/14/21 06:10 03/14/21 11:54 Labs: Abnormal Lab Results - Last 24 Hours (Table) 03/13/21 03/13/21 03/14/21 Range/Units 19:11 22:52 02:17 WBC (3.8-10.6) k/uL Hct (34.0-46.0) % RDW (11.5-15.5) % Neutrophils # (1.3-7.7) k/uL Lymphocytes # (1.0-4.8) k/uL Monocytes # (0-1.0) k/uL Sodium 116 L* 117 L* 116 L* (137-145) mmol/L Chloride 77 L 78 L 78 L (98-107) mmol/L Carbon Dioxide 31 H 31 H (22-30) mmol/L Creatinine 0.45 L 0.46 L (0.52-1.04) mg/dL Glucose 127 H 119 H 117 H (74-99) mg/dL POC Glucose (mg/dL) (75-99) mg/dL 03/14/21 03/14/2103/14/21 Range/Units 06:10 06:10 08:23 WBC 13.7 H (3.8-10.6) k/uL Hct 48.1 H (34.0-46.0) % RDW 11.3 L (11.5-15.5) % Neutrophils # 11.0 H (1.3-7.7) k/uL Lymphocytes # 0.7 L (1.0-4.8) k/uL Monocytes # 1.2 H (0-1.0) k/uL Sodium 119 L* (137-145) mmol/L Chloride 79 L (98-107) mmol/L Carbon Dioxide 35 H (22-30) mmol/L Creatinine (0.52-1.04) mg/dL Glucose 116 H (74-99) mg/dL POC Glucose (mg/dL) 111 H (75-99) mg/dL 03/14/21 Range/Units 11:54 WBC (3.8-10.6) k/uL Hct (34.0-46.0) % RDW (11.5-15.5) % Neutrophils # (1.3-7.7) k/uL Lymphocytes # (1.0-4.8) k/uL Monocytes # (0-1.0) k/uL Sodium 119 L* (137-145) mmol/L Chloride (98-107) mmol/L Carbon Dioxide (22-30) mmol/L Creatinine (0.52-1.04) mg/dL Glucose (74-99) mg/dL POC Glucose (mg/dL) (75-99) mg/dL Microbiology - Last 24 Hours (Table) 03/13/21 13:38 Blood Culture - Preliminary Blood No Growth after 24 hours 03/13/21 13:38 Blood Culture - Preliminary Blood No Growth after 24 hours Assessment and Plan Assessment: This is a 65-year-old female with no known past medical history that does not usually follow-up with any doctors presented to the emergency room with worsening shortness of breath and lower extremity edema. Patient has extensive workup in the ER with computed tomography scan of the chest showing bilateral lung consolidation/masses and bilateral pleural effusion. Computed tomography scan of the abdomen showing liver masses suspicious for metastatic disease with sclerotic metastasis into the sacrum and right ilium. Patient will be admitted to the hospital for further management of her medical problems noted below. 1. Metastatic cancer of unknown origin, imaging as above. Plan for diagnostic thoracentesis tomorrow for cytology. Oncology consulted as well 2. 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 Sodi um level on presentation 116. Nephrology consulted for further evaluation. Started on gentle IV fluid hydration with normal saline at 75 mL per hour. Avoid overcorrection 3. Bilateral lower extremity edema, ultrasound ordered negative for acute DVT 4. Acute hypoxic respiratory failure secondary to above 5. CODE STATUS, patient is full code. Discussed in details with her today in the emergency room
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
[2021-03-14 18:44] LABS: Glucose,Whole Blood 132 mg/dL (75-99)
[2021-03-14] MEDS: NALOXONE 0.4 MG/ML 1 ML VIAL IV PRN ×4 (18:50→21:38)
[2021-03-14 19:38] LABS: African American GFR (CKD) >90 (>60 ml/min/1.73 sqM); Anion Gap 5 mmol/L; Blood Urea Nitrogen 14 mg/dL (7-17); Calcium 9.7 mg/dL (8.4-10.2); Carbon Dioxide 34 mmol/L (22-30); Chloride 80 mmol/L (98-107); Glucose 138 mg/dL (74-99); Magnesium 2.1 mg/dL (1.6-2.3); Non-African American GFR(CKD) >90 (>60 ml/min/1.73 sqM); Potassium 4.1 mmol/L (3.5-5.1)
[2021-03-14 19:42] LABS: ABG Base Excess 8.7 mmol/L; ABG HCO3 37 mmol/L (21-25); ABG Oxygen Saturation 95.3 % (94-97); ABG PO2 83 mmHg (83-108); ABG TCO2 40 mmol/L (19-24); Allen Test Performed? Yes
[2021-03-14 19:49] LABS: Sodium 119 mmol/L (137-145)
[2021-03-14] MEDS ORDERED: KETOROLAC 30 MG/ML 1 ML VIAL IVP PRN (19:59)
[2021-03-14 20:01] LABS: Glucose,Whole Blood 154 mg/dL (75-99)
--- NOTE | 2021-03-14 20:03 | CONS ---
CONSULTATION REASON FOR CONSULTATION: Hyponatremia. HISTORY OF PRESENT ILLNESS: Patient is a 65-year-old female who was admitted to the hospital with complaints of increased weakness, not feeling well, and she was also short of breath with worsening edema in the lower extremities. Patient had apparently not been eating or drinking much for the past 2 weeks and had increased her fluid intake. She states that she had low sodium many years ago, but has not had a low sodium recently. She was noted to have a serum sodium of 116 mEq/L on initial admission. Blood pressure has not been significantly low; in fact, it is on the higher side. Patient was given Lasix initially and she has been maintained on saline at 75 mL/hour. Repeat sodium this morning was 119. CT of the abdomen revealed liver mass with possible metastatic disease. Possible sclerotic metastasis also noted. No evidence of hydronephrosis on the CT scan. Patient also had a chest CTA which showed small to moderate right pleural effusion and consolidations versus masses in the right lung and some in the left as well. No PE was seen. PAST MEDICAL HISTORY: None. PAST SURGICAL HISTORY: . SOCIAL HISTORY: Negative for smoking, drug abuse or alcohol abuse. MEDICATIONS AT HOME PRIOR TO ADMISSION: None. ALLERGIES: NONE. REVIEW OF SYSTEMS: As per HPI. Other systems negative. ASSESSMENT: 1. Hyponatremia, currently hypervolemic. Patient received a dose of Lasix and is maintained on saline. Serum sodium did go up to 119. I will hold the saline for now and repeat sodium this afternoon. Patient may need to continue with diuresis. Etiology is likely underlying malignancy and a component of SIADH along with an element of hypervolemic hyponatremia. I will check urine osmolality. This may not be accurate, as patient did receive a dose of IV Lasix. 2. Liver mass and bilateral lung lesions with right pleural effusion, scheduled for thoracentesis. 3. Acute hypoxic respiratory failure secondary to underlying pleural effusion as well as volume overload. PLAN: Discontinue saline. Check UA. Check urine osmolality. Repeat sodium this afternoon. Increase oral intake, particularly protein. Patient will likely need some degree of free water restriction. Thank you for this consultation. Will continue to follow the patient with you during her hospitalization. MMODL / IJN: [id number] /
[2021-03-14 20:13] LABS: ABG PCO2 95 mmHg (35-45)
[2021-03-14 22:14] LABS: ABG Base Excess 8.2 mmol/L; ABG HCO3 36 mmol/L (21-25); ABG PO2 108 mmHg (83-108); ABG TCO2 39 mmol/L (19-24); Allen Test Performed? Yes
[2021-03-14] MEDS: LIDOCAINE 5% PATCH TOPICAL SCH (22:17)
[2021-03-14 22:19] LABS: ABG PCO2 93 mmHg (35-45)
--- NOTE | 2021-03-14 22:27 | PCN ---
PROCEDURE NOTE OPERATIVE REPORT: Right-sided thoracentesis. PREOPERATIVE DIAGNOSIS: Right pleural effusion. POSTOPERATIVE DIAGNOSIS: Right pleural effusion. ANESTHESIA USED: 2 mL of 1% lidocaine. PROCEDURE: The patient was placed in a sitting upright position, the area of the pleural effusion was localized by ultrasound earlier, and marking was placed roughly at the ninth intercostal space and tip of the scapula. The area at that site was prepared in a sterile fashion, drapes were applied, the area was locally anesthetized with lidocaine. Then, a 26-gauge needle was inserted at the same site, advanced into the pleural space and fluid was localized. Then a small tiny incision was made, and a standard thoracentesis catheter and needle were used. Needle was inserted at the same site, advanced into the pleural space, fluid was obtained. Then the needle was pulled out of the pleural space, and the catheter was advanced over the needle into the pleural space. Free-flowing fluid, yellow turbid fluid was removed from the right pleural space, roughly 750 mL of fluid drained, not bloody, fluid was free flowing, and sent for different diagnostic studies. Chest x-ray postoperatively showed evidence of complications. MMODL / IJN: [id number] /
[2021-03-14] MEDS ORDERED: propofoL 100 ML IV ONE (22:48)
[2021-03-14 23:09] LABS: Glucose,Whole Blood 133 mg/dL (75-99)
[2021-03-14 23:41] LABS: ABG Base Excess 10.3 mmol/L; ABG HCO3 36 mmol/L (21-25); ABG PCO2 63 mmHg (35-45); ABG PH 7.36 (7.35-7.45); ABG PO2 365 mmHg (83-108); ABG TCO2 38 mmol/L (19-24); Allen Test Performed? Yes
[2021-03-14] MEDS ORDERED: SODIUM CHLORIDE 0.9% 1,000 ML IV ONE (23:54)
--- NOTE | 2021-03-15 | XR ---
EXAMINATION TYPE: XR chest 1V DATE OF EXAM: 03/14/2021 COMPARISON: Today HISTORY: Tube placement TECHNIQUE: FINDINGS: Endotracheal tube is 4.5 cm from the jag. There is nasogastric tube in the stomach. Ther e is airspace consolidation and volume loss in the right lung. There is interstitial edema in the lef t lung. There is blunting right costophrenic angle. There is no pneumothorax. IMPRESSION: Pleural fluid and pulmonary consolidation and atelectasis in the right lung which is not changed. Pulmonary interstitial edema unchanged.
[2021-03-15 00:24] LABS: Appearance,Urine Clear (Clear); Bilirubin,Urine Negative (Negative); Blood,Urine Negative (Negative); Color,Urine Yellow; Glucose,Urine (UA) Negative (Negative); Ketones,Urine Negative (Negative); Leukocyte Esterase,Urine Negative (Negative); Nitrite,Urine Negative (Negative); Protein,Urine Trace (Negative); Specific Gravity,Urine 1.019 (1.001-1.035); Urobilinogen,Urine <2.0 mg/dL (<2.0)
[2021-03-15 00:56] LABS: ALT 55 U/L (4-34); AST 87 U/L (14-36); African American GFR (CKD) >90 (>60 ml/min/1.73 sqM); Albumin 2.7 g/dL (3.5-5.0); Alkaline Phosphatase 159 U/L (38-126); Blood Urea Nitrogen 13 mg/dL (7-17); Calcium 8.3 mg/dL (8.4-10.2); Carbon Dioxide 27 mmol/L (22-30); Chloride 87 mmol/L (98-107); Glucose 106 mg/dL (74-99); Magnesium 1.9 mg/dL (1.6-2.3); Non-African American GFR(CKD) >90 (>60 ml/min/1.73 sqM); Total Bilirubin 1.1 mg/dL (0.2-1.3)
[2021-03-15 01:07] LABS: Basophils % (A) 0 %; Eosinophils # (A) 0.1 k/uL (0-0.7); Eosinophils % (A) 1 %; HCT 45.5 % (34.0-46.0); HGB 15.3 gm/dL (11.4-16.0); Lymphocytes # (A) 0.3 k/uL (1.0-4.8); Lymphocytes % (A) 2 %; MCH 31.7 pg (25.0-35.0); MCHC 33.6 g/dL (31.0-37.0); MCV 94.2 fL (80.0-100.0); Mean Platelet Volume 6.7; Monocytes # (A) 1.2 k/uL (0-1.0); Monocytes % (A) 8 %; Neutrophils # (A) 12.6 k/uL (1.3-7.7); Neutrophils % (A) 88 %; Platelet Count 277 k/uL (150-450); RBC 4.83 m/uL (3.80-5.40); RDW 12.1 % (11.5-15.5); WBC 14.4 k/uL (3.8-10.6)
[2021-03-15 01:15] LABS: Anion Gap 4 mmol/L
[2021-03-15 01:16] LABS: Potassium 4.8 mmol/L (3.5-5.1); Sodium 118 mmol/L (137-145)
[2021-03-15 04:11] LABS: ABG Base Excess 9.7 mmol/L; ABG HCO3 34 mmol/L (21-25); ABG Oxygen Saturation 97.8 % (94-97); ABG PCO2 55 mmHg (35-45); ABG PH 7.41 (7.35-7.45); ABG PO2 83 mmHg (83-108); ABG TCO2 36 mmol/L (19-24); Allen Test Performed? Yes
[2021-03-15] MEDS: NOREPINEPHRINE 4 MG in SODIUM CHLORIDE 0.9% 250 ML IV SCH (04:45)
[2021-03-15 04:46] LABS: African American GFR (CKD) >90 (>60 ml/min/1.73 sqM); Anion Gap 7 mmol/L; Blood Urea Nitrogen 14 mg/dL (7-17); Calcium 9.3 mg/dL (8.4-10.2); Carbon Dioxide 25 mmol/L (22-30); Chloride 86 mmol/L (98-107); Glucose 94 mg/dL (74-99); Non-African American GFR(CKD) >90 (>60 ml/min/1.73 sqM)
[2021-03-15 04:47] LABS: Potassium 4.7 mmol/L (3.5-5.1); Sodium 118 mmol/L (137-145)
[2021-03-15 05:12] LABS: Glucose, BF Source Pleural Fluid; Glucose, Body Fluid 122 mg/dL; LDH, Body Fluid Source Pleural Fluid; Total Protein, Body Fluid 3340 mg/dL
[2021-03-15 05:30] LABS: Basophils # (A) 0.1 k/uL (0-0.2); Basophils % (A) 1 %; Eosinophils # (A) 0.3 k/uL (0-0.7); Eosinophils % (A) 2 %; HCT 45.4 % (34.0-46.0); HGB 15.3 gm/dL (11.4-16.0); Lymphocytes # (A) 0.5 k/uL (1.0-4.8); Lymphocytes % (A) 4 %; MCH 31.2 pg (25.0-35.0); MCHC 33.7 g/dL (31.0-37.0); MCV 92.4 fL (80.0-100.0); Mean Platelet Volume 8.4; Monocytes # (A) 2.2 k/uL (0-1.0); Monocytes % (A) 15 %; Neutrophils # (A) 11.5 k/uL (1.3-7.7); Neutrophils % (A) 77 %; Platelet Count 197 k/uL (150-450); RBC 4.91 m/uL (3.80-5.40); RDW 12.1 % (11.5-15.5)
--- NOTE | 2021-03-15 08:13 | XR ---
EXAMINATION TYPE: XR chest 1V portable DATE OF EXAM: 03/15/2021 COMPARISON: 03/14/2021 HISTORY: Tube placement TECHNIQUE: Single frontal view of the chest is obtained. FINDINGS: Large area of consolidation right upper lobe stable. ET and NG tube stable. Tip of the NG tube at the level of the GE junction. Advancement recommended. Diffuse interstitial pattern bilateral ly with additional consolidation and pleural effusion involving the right lower lung field. Findings are all stable. IMPRESSION: 1. Diffuse pleural-parenchymal changes correlate for diffuse pneumonia versus pulmonary edema. 2. Advancement of NG tube recommended.
[2021-03-15] MEDS: AZITHROMYCIN 250 MG TAB PO SCH (09:30)
[2021-03-15] MEDS: CHLORHEXIDINE GLUCONATE 15 ML CUP MUCOUS MEM SCH ×2 (09:30→20:29)
[2021-03-15] MEDS: ENOXAPARIN 40 MG/0.4 ML SYRINGE SQ SCH (09:30)
[2021-03-15] MEDS ORDERED: SODIUM CHLORIDE 0.9% 1,000 ML IV ONE (09:59)
[2021-03-15] MEDS ORDERED: TOLVAPTAN 15 MG 1/2 TABLET PO ONE (10:29)
[2021-03-15] MEDS ORDERED: CISATRACURIUM 2 MG/ML 5 ML VIAL IV ONE ×2 (10:39→10:48)
[2021-03-15] MEDS ORDERED: DEXAMETHASONE SOD PHOSPHATE 10 MG/ML 1 ML VIAL IVP STA (10:58)
[2021-03-15] MEDS ORDERED: methylPREDNISolone SOD SUCCI 40 MG/ML 1 ML VIAL IV SCH (11:00)
--- NOTE | 2021-03-15 11:18 | XR ---
EXAMINATION TYPE: XR chest 1V portable DATE OF EXAM: 03/15/2021 COMPARISON: 03/15/2021 HISTORY: Tube placement TECHNIQUE: Single frontal view of the chest is obtained. FINDINGS: Large area of consolidation right upper lobe stable. ET and NG tube stable. Tip of the NG tube at the level of the GE junction. Advancement recommended. Diffuse interstitial pattern bilateral ly with additional consolidation and pleural effusion involving the right lower lung field. Findings are all stable. IMPRESSION: 1. No evidence of pneumothorax. 2. Persistent large area of consolidation in the right upper lobe and diffuse bilateral interstitial opacities with right lower lobe infiltrate and pleural effusion stable. 3. Recommend advancement of the NG tube..
--- NOTE | 2021-03-15 12:29 | OP ---
OPERATIVE REPORT OPERATIVE REPORT: Bronchoscopy, multiple endobronchial biopsies of right upper lobe endobronchial tumor, brushings from right upper lobe endobronchial tumor, washings and lavage of the right upper lobe tumor. ANESTHESIA USED: Patient was already on propofol, and she received 7 mg of Nimbex prior to the procedure. PROCEDURE DESCRIPTION: Patient was already on mechanical ventilation, and her FiO2 was placed up at 100%. Patient was fully sedated and paralyzed with Nimbex. We monitored her O2 saturation continuously. Blood pressure was monitored continuously. Cardiac rhythm was continuously monitored. The bronchoscope was inserted through the adapter of the endotracheal tube and advanced into the distal end of the trachea. There was no evidence of any endotracheal lesions. The jag was noted to be sharp; however, as I entered the right upper lobe bronchus it was noted to be completely occluded and obstructed by a cauliflower lesion highly suggestive of squamous cell lung cancer. Then the bronchoscope was inserted and advanced further down, I was able to visualize the right middle lobe, right lower lobe, and on the left side I visualized the left upper lobe, lingula, and left lower lobe. The only abnormality was noted mostly in the right upper lobe bronchus with completely obstructing lesion of the right upper lobe bronchus. Multiple endobronchial biopsies were done of the endobronchial tumor. Brushings were done and washing of the tumor was done with lavaging the right upper lobe. I could not actually visualize the right upper lobe because of the complete obstruction noted. At any rate, the specimens were sent for different diagnostic studies. Procedure was well tolerated, no evidence of any complications. Chest x-ray was done postoperatively. No complications. MMODL / IJN: [id number] /
--- NOTE | 2021-03-15 12:33 | P.PN ---
Subjective Progress Note Date: 03/15/21 Principal diagnosis: Metastatic lung cancer On 03/14/2021 patient seen in follow-up in the emergency department where she is awaiting a bed on selective care unit, she is currently on 15 L of oxygen pulse ox is 98%, when the patient gets up out of bed her pulse ox drops 65, she easily desaturates, she does recover with rest. Is awake and alert, currently seems to be in no acute distress, she is in sinus mechanism with a rate of 86, blood pressure stable, blood pressure is 110/79, afebrile. Patient continues on azithromycin and Rocephin for empiric antibiotic coverage, she is on 0.9 normal saline at a rate of 75 ML per hour, she is on GI and DVT prophylaxis. Labs have been reviewed, her sodium is 119, white blood cell count is 13.7, hemoglobin is 15.9, BUN is 12 and creatinine 0.62. Echocardiogram has been completed showing EF of 55-60%, mild pulmonary hypertension with right-sided pressure of 43.5 mmHg. Lower extremity Dopplers showed possibility of a chronic DVTs. Ultrasound the chest has been completed showing a right pleural effusion pocket of 10.6 cm. patient denies any chest pain, no hemoptysis. The findings of the CT chest and chest x-ray have been reviewed and there is a high possibility of metastatic lung carcinoma Patient was reevaluated today on 03/15/2021, patient developed acute hypercapnic rest or with failure yesterday, may have been related to a dose of Dilaudid that she was given for pain control, patient was placed on BiPAP by the admitting physician, however continued to show significant hypercapnia with low pH, her pO2 on BiPAP at 40% was 108, and her pCO2 remained 93 with a pH of 7.20. Patient was seen by the rapid response team, intubated since her pCO2 remained high and the patient became up on that, repeat ABG post intubation showed a pO2 of 365 pCO2 of 63 pH of 7.36. Patient remained on mechanical ventilation overni ght, and today she is down to 40% FiO2 with ABG showing a pO2 of 83 pCO2 55 pH of 7.41. Obviously based on this ABG, the patient does have chronic hypercapnia and this time she had acute on chronic hypercapnic respiratory failure requiring intubation and mechanical ventilation. Sodium today is 118 potassium is 4.7 chloride is 86. BUN is 14 and creatinine 0.51 patient remains intubated and mechanically ventilated this morning, and considering the patient is intubated, discussed her condition with her daughter over the phone, and explained to the daughter that this is the best time to go ahead and proceed with bronchoscopy and endobronchial biopsy of right upper lobe endobronchial tumor. Daughter agreed with that decision, and consent was obtained over the phone. I went ahead and performed bronchoscopy and multiple endobronchial biopsies of large endobronchial tumor completely occluding the right upper lobe bronchus. Brushings of the tumor were done, and washings were also done. These were all sent to pathology. In the meantime the patient remains on assist control rate of 16 tidal volume is 350 FiO2 50%, and PEEP of 5. Objective - Vital Signs Vital signs: Vital Signs Temp 98.0 F 03/15/21 12:00 Pulse 85 03/15/21 12:15 Resp 16 03/15/21 12:15 BP 105/61 03/15/21 12:15 Pulse Ox 95 03/15/21 12:00 Intake & Output 03/14/21 03/15/21 03/15/21 18:59 06:59 18:59 Intake Total 100 2469.265 4033.202 Output Total 1225 675 Balance 100 -150.078 498.202 Weight 56.699 kg 57.3 kg Intake: IV 1020 50 KVO 20 50 Sodium Chloride 0.9% 1, 1000 000 ml @ 999 mls/hr IV . Q1H1M [facility] Rx#:[id number] Intake, IV Titration 54.922 1123.202 Amount Norepinephrine 4 mg In 11.851 73.202 Sodium Chloride 0.9% 250 ml @ 0.05 MCG/KG/MIN 10. 839 mls/hr IV .[id number] [facility] Rx#:[id number] Sodium Chloride 0.9% 1, 1000 000 ml @ 999 mls/hr IV . Q1H1M [facility] Rx#:[id number] cefTRIAXone 1 gm In 50 Sodium Chloride 0.9% 50 ml @ 100 mls/hr IVPB Q24HR [facility] Rx#:[id number] propofoL 1,000 mg In 43.071 Empty Bag 1 bag @ Titrate IV .Q0M [facility] Rx#: [id number] Oral 100 Output: Urine 1225 675 Other: Voiding Method Indwelling Catheter Indwelling Catheter - Exam Physical Exam: Revealed a 65-year-old female intubated, sedated, on mechanical ventilation, presently on propofol. Head: Atraumatic, normocephalic. Endotracheal tube is intact orogastric tube is intact. HEENT:[Neck is supple.] [No neck masses.] [No thyromegaly.] [No JVD.] Chest: [Scattered rhonchi and wheezes noted bilaterally. Cardiac Exam: [Normal S1 and S2, no S3 gallop, no murmur.] Abdomen: [Soft, nontender, no megaly, no rebound, no guarding, normal bowel sounds.] Extremities: [No clubbing, no edema, no cyanosis.] Neurological Exam: Could not assess, patient is sedated, on propofol. Psychiatric: Could not assess, patient is sedated on propofol. - Labs CBC & Chem 7: 03/15/21 03:59 03/15/21 03:59 Labs: Abnormal Lab Results - Last 24 Hours (Table) 03/14/21 03/14/21 03/14/21 Range/Units 00:10 00:10 06:10 WBC 14.4 H 13.7 H (3.8-10.6) k/uL Hct 48.1 H (34.0-46.0) % RDW 11.3 L (11.5-15.5) % Neutrophils # 12.6 H 11.0 H (1.3-7.7) k/uL Lymphocytes # 0.3 L 0.7 L (1.0-4.8) k/uL Monocytes # 1.2 H 1.2 H (0-1.0) k/uL ABG pH (7.35-7.45) ABG pCO2 (35-45) mmHg ABG pO2 (83-108) mmHg ABG HCO3 (21-25) mmol/L ABG Total CO2 (19-24) mmol/L ABG O2 Saturation (94-97) % Sodium 118 L* (137-145) mmol/L Chloride 87 L (98-107) mmol/L Carbon Dioxide (22-30) mmol/L Creatinine 0.50 L (0.52-1.04) mg/dL Glucose 106 H (74-99) mg/dL POC Glucose (mg/dL) (75-99) mg/dL Calcium 8.3 L (8.4-10.2) mg/dL AST 87 H (14-36) U/L ALT 55 H (4-34) U/L Alkaline Phosphatase 159 H (38-126) U/L Total Protein 5.0 L (6.3-8.2) g/dL Albumin 2.7 L (3.5-5.0) g/dL Procalcitonin (0.02-0.09) ng/mL Urine Protein (Negative) 03/14/21 03/14/21 03/14/21 Range/Units 11:54 11:54 18:42 WBC (3.8-10.6) k/uL Hct (34.0-46.0) % RDW (11.5-15.5) % Neutrophils # (1.3-7.7) k/uL Lymphocytes # (1.0-4.8) k/uL Monocytes # (0-1.0) k/uL ABG pH (7.35-7.45) ABG pCO2 (35-45) mmHg ABG pO2 (83-108) mmHg ABG HCO3 (21-25) mmol/L ABG Total CO2 (19-24) mmol/L ABG O2 Saturation (94-97) % Sodium 119 L* (137-145) mmol/L Chloride (98-107) mmol/L Carbon Dioxide (22-30) mmol/L Creatinine (0.52-1.04) mg/dL Glucose (74-99) mg/dL POC Glucose (mg/dL) 132 H (75-99) mg/dL Calcium (8.4-10.2) mg/dL AST (14-36) U/L ALT (4-34) U/L Alkaline Phosphatase (38-126) U/L Total Protein (6.3-8.2) g/dL Albumin (3.5-5.0) g/dL Procalcitonin 0.19 H (0.02-0.09) ng/mL Urine Protein (Negative) 03/14/21 03/14/21 03/14/21 Range/Units 18:48 19:41 19:59 WBC (3.8-10.6) k/uL Hct (34.0-46.0) % RDW (11.5-15.5) % Neutrophils # (1.3-7.7) k/uL Lymphocytes # (1.0-4.8) k/uL Monocytes # (0-1.0) k/uL ABG pH 7.20 L (7.35-7.45) ABG pCO2 95 H* (35-45) mmHg ABG pO2 (83-108) mmHg ABG HCO3 37 H (21-25) mmol/L ABG Total CO2 40 H (19-24) mmol/L ABG O2 Saturation (94-97) % Sodium 119 L* (137-145) mmol/L Chloride 80 L (98-107) mmol/L Carbon Dioxide 34 H (22-30) mmol/L Creatinine (0.52-1.04) mg/dL Glucose 138 H (74-99) mg/dL POC Glucose (mg/dL) 154 H (75-99) mg/dL Calcium (8.4-10.2) mg/dL AST (14-36) U/L ALT (4-34) U/L Alkaline Phosphatase (38-126) U/L Total Protein (6.3-8.2) g/dL Albumin (3.5-5.0) g/dL Procalcitonin (0.02-0.09) ng/mL Urine Protein (Negative) 03/14/21 03/14/21 03/14/21 Range/Units 22:08 23:07 23:36 WBC (3.8-10.6) k/uL Hct (34.0-46.0) % RDW (11.5-15.5) % Neutrophils # (1.3-7.7) k/uL Lymphocytes # (1.0-4.8) k/uL Monocytes # (0-1.0) k/uL ABG pH 7.20 L (7.35-7.45) ABG pCO2 93 H* (35-45) mmHg ABG pO2 (83-108) mmHg ABG HCO3 36 H (21-25) mmol/L ABG Total CO2 39 H (19-24) mmol/L ABG O2 Saturation 98.0 H (94-97) % Sodium (137-145) mmol/L Chloride (98-107) mmol/L Carbon Dioxide (22-30) mmol/L Creatinine (0.52-1.04) mg/dL Glucose (74-99) mg/dL POC Glucose (mg/dL) 133 H (75-99) mg/dL Calcium (8.4-10.2) mg/dL AST (14-36) U/L ALT (4-34) U/L Alkaline Phosphatase (38-126) U/L Total Protein (6.3-8.2) g/dL Albumin (3.5-5.0) g/dL Procalcitonin (0.02-0.09) ng/mL Urine Protein Trace H (Negative) 03/14/21 03/15/21 03/15/21 Range/Units 23:38 03:59 03:59 WBC 15.0 H (3.8-10.6) k/uL Hct (34.0-46.0) % RDW (11.5-15.5) % Neutrophils # 11.5 H (1.3-7.7) k/uL Lymphocytes # 0.5 L (1.0-4.8) k/uL Monocytes # 2.2 H (0-1.0) k/uL ABG pH (7.35-7.45) ABG pCO2 63 H (35-45) mmHg ABG pO2 365 H (83-108) mmHg ABG HCO3 36 H (21-25) mmol/L ABG Total CO2 38 H (19-24) mmol/L ABG O2 Saturation 100.0 H (94-97) % Sodium 118 L* (137-145) mmol/L Chloride 86 L (98-107) mmol/L Carbon Dioxide (22-30) mmol/L Creatinine 0.51 L (0.52-1.04) mg/dL Glucose (74-99) mg/dL POC Glucose (mg/dL) (75-99) mg/dL Calcium (8.4-10.2) mg/dL AST (14-36) U/L ALT (4-34) U/L Alkaline Phosphatase (38-126) U/L Total Protein (6.3-8.2) g/dL Albumin (3.5-5.0) g/dL Procalcitonin (0.02-0.09) ng/mL Urine Protein (Negative) 03/15/21 Range/Units 04:04 WBC (3.8-10.6) k/uL Hct (34.0-46.0) % RDW (11.5-15.5) % Neutrophils # (1.3-7.7) k/uL Lymphocytes # (1.0-4.8) k/uL Monocytes # (0-1.0) k/uL ABG pH (7.35-7.45) ABG pCO2 55 H (35-45) mmHg ABG pO2 (83-108) mmHg ABG HCO3 34 H (21-25) mmol/L ABG Total CO2 36 H (19-24) mmol/L ABG O2 Saturation 97.8 H (94-97) % Sodium (137-145) mmol/L Chloride (98-107) mmol/L Carbon Dioxide (22-30) mmol/L Creatinine (0.52-1.04) mg/dL Glucose (74-99) mg/dL POC Glucose (mg/dL) (75-99) mg/dL Calcium (8.4-10.2) mg/dL AST (14-36) U/L ALT (4-34) U/L Alkaline Phosphatase (38-126) U/L Total Protein (6.3-8.2) g/dL Albumin (3.5-5.0) g/dL Procalcitonin (0.02-0.09) ng/mL Urine Protein (Negative) Microbiology - Last 24 Hours (Table) 03/14/21 23:05 Gram Stain - Preliminary Sputum Sputum Culture - Preliminary 03/14/21 14:00 Gram Stain - Preliminary Pleural Fluid Body Fluid Culture - Preliminary 03/14/21 14:00 Fungal Culture - Preliminary Pleural Fluid 03/14/21 14:00 Acid Fast Bacilli Culture - Preliminary Pleural Fluid 03/14/21 14:00 Anaerobic Culture - Preliminary Pleural Fluid 03/13/21 13:38 Blood Culture - Preliminary Blood No Growth after 24 hours 03/13/21 13:38 Blood Culture - Preliminary Blood No Growth after 24 hours Assessment and Plan Assessment: Impression: Acute on chronic hypercapnic respiratory failure, likely induced by worsening bronchospasm and possible underlying COPD although the patient never smoked. This required intubation and mechanical ventilation, patient failed to respond to BiPAP. Her hypercapnia may have been exacerbated by narcotics given for pain control. 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 Considered severe. Abnormal liver enzymes most likely secondary to hepatic metastasis. Status post bronchoscopy with multiple endobronchial biopsies brushings and washings of right upper lobe endobronchial tumor obstructing the right upper lobe Bronchus. Recommendation: Continue ventilatory support. Continue bronchodilators. Continue antibiotics. Continue steroids. Start enteral feeding. May consider weaning trial today if tolerated. Continue GI and DVT prophylaxis. Overall prognosis is extremely poor and guarded, at this rate the patient is not even a candidate for any form of chemotherapy. Critical care time is over 30 minutes, not including the time spent on procedures/bronchoscopy Time with Patient: Greater than 30
--- NOTE | 2021-03-15 12:51 | PN ---
PROGRESS NOTE Patient is seen for followup for hyponatremia. Initially patient received a dose of IV Lasix. However, she had been maintained on saline as well. Her serum sodium had improved about 119 from 116, but last night patient needed to be intubated secondary to worsening mentation and respiratory status. This was thought to be related to a dose of Dilaudid that patient received. She did get Narcan x4, but she had significant CO2 retention and was therefore intubated. Blood pressure had decreased to 80s systolic and patient did receive a fluid bolus last night as well as one liter this morning. Her serum sodium has stayed about the same and it was at 118 today from 119 yesterday. The urine osmolality came back on the higher side at 421. Patient does have pulmonary lesions/masses as well as liver mass with high suspicion for metastatic disease, primary lung versus another site. This morning patient had bronchoscopy with biopsy. She also had right thoracentesis of about 700 mL done yesterday. On examination today, patient is intubated. She is on the vent, sedated. Blood pressure 105/61, heart rate 85 per minute. She is afebrile. EXAMINATION OF THE HEART: S1 and S2. EXAMINATION OF LUNGS: Bilateral breath sounds are heard. Abdomen is soft, non-tender. Examination of lower extremities shows edema 1+ bilaterally. RE[employer]URANCE CLAIMS ANALYST exam cannot be performed. Labs show sodium 118, potassium 4.7, chloride 86, BUN 14, creatinine 0.5, hemoglobin 15.3 g/dL. ASSESSMENT: 1. Hyponatremia, currently euvolemic or slightly hypervolemic with evidence of bilateral lower extremity edema, status post normal saline liter boluses x2. Sodium is at 118, down from 119. There is likely component of SIADH. I will give her a dose of tolvaptan and we will hold aggressive IV hydration unless patient is hypotensive. 2. Acute hypoxic respiratory failure secondary to underlying pulmonary masses and pleural effusion as well as respiratory depression from narcotics, status post Narcan, with no improvement in respiratory status and subsequent intubation. 3. Liver mass and lung nodules/masses. High suspicion for underlying malignancy. 4. Carbon dioxide retention and acute hypercapnic respiratory failure, status post intubation. Currently maintained on the vent. FiO2 is at 50%. PLAN: Tolvaptan x1 and repeat sodium later today. Hold saline. MMODL / IJN: [id number] /
--- NOTE | 2021-03-15 15:25 | CDI ---
Documentation Clarification Form Date: 03/15/2021 03:00:18 PM From: Alyssia Narvaez RN, CDS Admit Date: 03/13/2021 02:55:00 PM Patient Name: Milena Choi Visit Number: [id number] Discharge Date: ATTENTION: The Clinical Documentation Specialists (CDI) and [facility] Coding Staff appreciate your assistance in clarifying documentation. Please respond to the clarification below the line at the bottom and electronically sign. The CDI & [facility] Coding staff will review the response and follow-up if needed. Please note: Queries are made part of the Legal Health Record. If you have any questions, please contact the author of this message via ITS. Dr. Ketan Cheung Malnutrition is documented in the pulmonary consult on 03/13/21. Additional clarification regarding the severity of malnutrition is requested. Pulmonary notes: She is extremely weak, cachectic, malnourished and emancipated. 03/14 Oncology consult: She has noted weight loss in the last month, she has always been build, and she lost her appetite a few weeks ago. History/Risk Factors: Metastatic CA of lung and liver and sacrum, non-smoker but 2nd hand smoke exposure Clinical Indicators: 65-year-old female present to emergency department with worsening shortness of breath. 03/13 Labs: WBC 16.2, Sodium 116, chloride 78 03/14 Labs: Total protein 5.0, Albumin 2.7 Current BMI: 21.1 Insufficient energy intake: Yes Weight Loss: Yes Loss of subcutaneous fat: noted as emaciated Loss of muscle mass: emaciated, cachectic RD Consult Assessment: 05/15 (intubated and sedated in ICU, started tube feedings Inadequate oral intake Treatment: Dietary Consult: Yes Supplements: Tube Feedings monitor Lab monitoring: CBC, NA, Glucose per orders Daily weights, monitor intake and output per protocol Please clarify the type of malnutrition, if known: [ ] Mild Protein-Calorie Malnutrition [ ] Moderate Protein-Calorie Malnutrition [ ] Severe Protein-Calorie Malnutrition [ ] Other condition, please specify [ ] Unable to Determine (Template Last Revised: June 2020) MTDD
[2021-03-15] MEDS: methylPREDNISolone SOD SUCCI 40 MG/ML 1 ML VIAL IV SCH ×2 (18:10→23:11)
[2021-03-15] MEDS: DEXTROSE 5% IN WATER 1,000 ML IV SCH (18:10)
--- NOTE | 2021-03-15 18:27 | P.PN ---
Subjective Progress Note Date: 03/15/21 Principal diagnosis: lung, liver and bone lesions Pt is intubated post bronch Objective - Vital Signs Vital signs: Vital Signs Temp 98.7 F 03/15/21 16:00 Pulse 84 03/15/21 18:00 Resp 18 03/15/21 18:00 BP 89/58 03/15/21 18:00 Pulse Ox 95 03/15/21 18:00 Intake & Output 03/14/21 03/15/21 03/15/21 18:59 06:59 18:59 Intake Total 100 8053.517 6731.364 Output Total 1225 2200 Balance 100 -150.078 -868.636 Weight 56.699 kg 57.3 kg 55.7 kg Intake: IV 1020 110 KVO 20 110 Sodium Chloride 0.9% 1, 1000 000 ml @ 999 mls/hr IV . Q1H1M [facility] Rx#:[id number] Intake, IV Titration 54.922 1221.364 Amount Norepinephrine 4 mg In 11.851 86.355 Sodium Chloride 0.9% 250 ml @ 0.05 MCG/KG/MIN 10. 839 mls/hr IV .[id number] [facility] Rx#:[id number] Sodium Chloride 0.9% 1, 1000 000 ml @ 999 mls/hr IV . Q1H1M [facility] Rx#:[id number] cefTRIAXone 1 gm In 50 Sodium Chloride 0.9% 50 ml @ 100 mls/hr IVPB Q24HR [facility] Rx#:[id number] propofoL 1,000 mg In 43.071 85.009 Empty Bag 1 bag @ Titrate IV .Q0M [facility] Rx#: [id number] Oral 100 Output: Urine 1225 2200 Other: Voiding Method Indwelling Catheter Indwelling Catheter - Constitutional General appearance: Present: no acute distress, thin - Labs CBC & Chem 7: 03/15/21 03:59 03/15/21 15:04 Labs: Abnormal Lab Results - Last 24 Hours (Table) 03/14/21 03/14/21 03/14/21 Range/Units 00:10 00:10 06:10 WBC 14.4 H 13.7 H (3.8-10.6) k/uL Hct 48.1 H (34.0-46.0) % RDW 11.3 L (11.5-15.5) % Neutrophils # 12.6 H 11.0 H (1.3-7.7) k/uL Lymphocytes # 0.3 L 0.7 L (1.0-4.8) k/uL Monocytes # 1.2 H 1.2 H (0-1.0) k/uL ABG pH (7.35-7.45) ABG pCO2 (35-45) mmHg ABG pO2 (83-108) mmHg ABG HCO3 (21-25) mmol/L ABG Total CO2 (19-24) mmol/L ABG O2 Saturation (94-97) % Sodium 118 L* (137-145) mmol/L Chloride 87 L (98-107) mmol/L Carbon Dioxide (22-30) mmol/L Creatinine 0.50 L (0.52-1.04) mg/dL Glucose 106 H (74-99) mg/dL POC Glucose (mg/dL) (75-99) mg/dL Calcium 8.3 L (8.4-10.2) mg/dL AST 87 H (14-36) U/L ALT 55 H (4-34) U/L Alkaline Phosphatase 159 H (38-126) U/L Total Protein 5.0 L (6.3-8.2) g/dL Albumin 2.7 L (3.5-5.0) g/dL Procalcitonin (0.02-0.09) ng/mL Urine Protein (Negative) 03/14/21 03/14/21 03/14/21 Range/Units 11:54 18:42 18:48 WBC (3.8-10.6) k/uL Hct (34.0-46.0) % RDW (11.5-15.5) % Neutrophils # (1.3-7.7) k/uL Lymphocytes # (1.0-4.8) k/uL Monocytes # (0-1.0) k/uL ABG pH (7.35-7.45) ABG pCO2 (35-45) mmHg ABG pO2 (83-108) mmHg ABG HCO3 (21-25) mmol/L ABG Total CO2 (19-24) mmol/L ABG O2 Saturation (94-97) % Sodium 119 L* (137-145) mmol/L Chloride 80 L (98-107) mmol/L Carbon Dioxide 34 H (22-30) mmol/L Creatinine (0.52-1.04) mg/dL Glucose 138 H (74-99) mg/dL POC Glucose (mg/dL) 132 H (75-99) mg/dL Calcium (8.4-10.2) mg/dL AST (14-36) U/L ALT (4-34) U/L Alkaline Phosphatase (38-126) U/L Total Protein (6.3-8.2) g/dL Albumin (3.5-5.0) g/dL Procalcitonin 0.19 H (0.02-0.09) ng/mL Urine Protein (Negative) 03/14/21 03/14/21 03/14/21 Range/Units 19:41 19:59 22:08 WBC (3.8-10.6) k/uL Hct (34.0-46.0) % RDW (11.5-15.5) % Neutrophils # (1.3-7.7) k/uL Lymphocytes # (1.0-4.8) k/uL Monocytes # (0-1.0) k/uL ABG pH 7.20 L 7.20 L (7.35-7.45) ABG pCO2 95 H* 93 H* (35-45) mmHg ABG pO2 (83-108) mmHg ABG HCO3 37 H 36 H (21-25) mmol/L ABG Total CO2 40 H 39 H (19-24) mmol/L ABG O2 Saturation 98.0 H (94-97) % Sodium (137-145) mmol/L Chloride (98-107) mmol/L Carbon Dioxide (22-30) mmol/L Creatinine (0.52-1.04) mg/dL Glucose (74-99) mg/dL POC Glucose (mg/dL) 154 H (75-99) mg/dL Calcium (8.4-10.2) mg/dL AST (14-36) U/L ALT (4-34) U/L Alkaline Phosphatase (38-126) U/L Total Protein (6.3-8.2) g/dL Albumin (3.5-5.0) g/dL Procalcitonin (0.02-0.09) ng/mL Urine Protein (Negative) 03/14/21 03/14/21 03/14/21 Range/Units 23:07 23:36 23:38 WBC (3.8-10.6) k/uL Hct (34.0-46.0) % RDW (11.5-15.5) % Neutrophils # (1.3-7.7) k/uL Lymphocytes # (1.0-4.8) k/uL Monocytes # (0-1.0) k/uL ABG pH (7.35-7.45) ABG pCO2 63 H (35-45) mmHg ABG pO2 365 H (83-108) mmHg ABG HCO3 36 H (21-25) mmol/L ABG Total CO2 38 H (19-24) mmol/L ABG O2 Saturation 100.0 H (94-97) % Sodium (137-145) mmol/L Chloride (98-107) mmol/L Carbon Dioxide (22-30) mmol/L Creatinine (0.52-1.04) mg/dL Glucose (74-99) mg/dL POC Glucose (mg/dL) 133 H (75-99) mg/dL Calcium (8.4-10.2) mg/dL AST (14-36) U/L ALT (4-34) U/L Alkaline Phosphatase (38-126) U/L Total Protein (6.3-8.2) g/dL Albumin (3.5-5.0) g/dL Procalcitonin (0.02-0.09) ng/mL Urine Protein Trace H (Negative) 03/15/21 03/15/21 03/15/21 Range/Units 03:59 03:59 04:04 WBC 15.0 H (3.8-10.6) k/uL Hct (34.0-46.0) % RDW (11.5-15.5) % Neutrophils # 11.5 H (1.3-7.7) k/uL Lymphocytes # 0.5 L (1.0-4.8) k/uL Monocytes # 2.2 H (0-1.0) k/uL ABG pH (7.35-7.45) ABG pCO2 55 H (35-45) mmHg ABG pO2 (83-108) mmHg ABG HCO3 34 H (21-25) mmol/L ABG Total CO2 36 H (19-24) mmol/L ABG O2 Saturation 97.8 H (94-97) % Sodium 118 L* (137-145) mmol/L Chloride 86 L (98-107) mmol/L Carbon Dioxide (22-30) mmol/L Creatinine 0.51 L (0.52-1.04) mg/dL Glucose (74-99) mg/dL POC Glucose (mg/dL) (75-99) mg/dL Calcium (8.4-10.2) mg/dL AST (14-36) U/L ALT (4-34) U/L Alkaline Phosphatase (38-126) U/L Total Protein (6.3-8.2) g/dL Albumin (3.5-5.0) g/dL Procalcitonin (0.02-0.09) ng/mL Urine Protein (Negative) 03/15/21 Range/Units 15:04 WBC (3.8-10.6) k/uL Hct (34.0-46.0) % RDW (11.5-15.5) % Neutrophils # (1.3-7.7) k/uL Lymphocytes # (1.0-4.8) k/uL Monocytes # (0-1.0) k/uL ABG pH (7.35-7.45) ABG pCO2 (35-45) mmHg ABG pO2 (83-108) mmHg ABG HCO3 (21-25) mmol/L ABG Total CO2 (19-24) mmol/L ABG O2 Saturation (94-97) % Sodium 130 L (137-145) mmol/L Chloride (98-107) mmol/L Carbon Dioxide (22-30) mmol/L Creatinine (0.52-1.04) mg/dL Glucose (74-99) mg/dL POC Glucose (mg/dL) (75-99) mg/dL Calcium (8.4-10.2) mg/dL AST (14-36) U/L ALT (4-34) U/L Alkaline Phosphatase (38-126) U/L Total Protein (6.3-8.2) g/dL Albumin (3.5-5.0) g/dL Procalcitonin (0.02-0.09) ng/mL Urine Protein (Negative) Microbiology - Last 24 Hours (Table) 03/13/21 13:38 Blood Culture - Preliminary Blood No Growth after 48 hours 03/13/21 13:38 Blood Culture - Preliminary Blood No Growth after 48 hours 03/14/21 23:05 Gram Stain - Preliminary Sputum Sputum Culture - Preliminary 03/14/21 14:00 Gram Stain - Preliminary Pleural Fluid Body Fluid Culture - Preliminary 03/14/21 14:00 Fungal Culture - Preliminary Pleural Fluid 03/14/21 14:00 Acid Fast Bacilli Culture - Preliminary Pleural Fluid 03/14/21 14:00 Anaerobic Culture - Preliminary Pleural Fluid Assessment and Plan (1) Hyponatremia Current Visit: Yes Status: Acute Priority: High Code(s): E87.1 - HYPO- OSMOLALITY AND HYPONATREMIA SNOMED Code(s): 31793964 (2) Lung mass Current Visit: Yes Status: Acute Priority: High Code(s): R91.8 - OTHER NONSPECIFIC ABNORMAL FINDING OF LUNG FIELD SNOMED Code(s): 458193223 (3) Pleural effusion Current Visit: Yes Status: Acute Priority: High Code(s): J90 - PLEURAL EFFUSION, NOT ELSEWHERE CLASSIFIED SNOMED Code(s): 81834488 Plan: Clinical picture and imaging highly suggestive of a lung primary malignancy. Thoracentesis done for palliation, sent for cytology. Dr. Moon discussed case with Pulmonary. Agree with bronch and tissue biopsy. Will request NGS testing. Plan for liquid biopsy in ofc. F/U Dr. Moon 1 week. Pending MRI brain and NM bone scan to complete staging. Discussed with daughter that there is a 35% possibility of that pt will have EGFR or Alk mutation with targeted therapy as an option-with good outcomes. She understands the plan.
--- NOTE | 2021-03-15 18:29 | P.PN ---
Subjective Patient was seen and evaluated by me in the ICU this morning. She had episodes of worsening mental status last night and an ABG showed evidence of acute hypercapnic respiratory failure. Her respiratory status worsened and patient eventually was transferred to the ICU and was intubated and is currently on mechanical ventilation. She underwent a thoracentesis yesterday with approximately 750 mL of fluid removed and after intubation patient underwent bronchoscopy with bronchial washings Objective - Vital Signs Vital signs: Vital Signs Temp 98.7 F 03/15/21 16:00 Pulse 84 03/15/21 18:00 Resp 18 03/15/21 18:00 BP 89/58 03/15/21 18:00 Pulse Ox 95 03/15/21 18:00 Intake & Output 03/14/21 03/15/21 03/15/21 18:59 06:59 18:59 Intake Total 100 5083.267 0777.364 Output Total 1225 2200 Balance 100 -150.078 -868.636 Weight 56.699 kg 57.3 kg 55.7 kg Intake: IV 1020 110 KVO 20 110 Sodium Chloride 0.9% 1, 1000 000 ml @ 999 mls/hr IV . Q1H1M [facility] Rx#:[id number] Intake, IV Titration 54.922 1221.364 Amount Norepinephrine 4 mg In 11.851 86.355 Sodium Chloride 0.9% 250 ml @ 0.05 MCG/KG/MIN 10. 839 mls/hr IV .[id number] [facility] Rx#:[id number] Sodium Chloride 0.9% 1, 1000 000 ml @ 999 mls/hr IV . Q1H1M [facility] Rx#:[id number] cefTRIAXone 1 gm In 50 Sodium Chloride 0.9% 50 ml @ 100 mls/hr IVPB Q24HR [facility] Rx#:[id number] propofoL 1,000 mg In 43.071 85.009 Empty Bag 1 bag @ Titrate IV .Q0M [facility] Rx#: [id number] Oral 100 Output: Urine 1225 2200 Other: Voiding Method Indwelling Catheter Indwelling Catheter - Exam General: The patient is sedated and intubated Eye: there is normal conjunctiva bilaterally. Neck: The neck is supple, there is no JVD. Cardiovascular: Normal S1-S2, no S3-S4, no murmurs. Respiratory: Lungs clear to auscultation bilaterally Gastrointestinal: Abdomen is soft, nontender Musculoskeletal: There is +1 pedal edema. Skin: Skin is warm and dry - Labs CBC & Chem 7: 03/15/21 03:59 03/15/21 15:04 Labs: Abnormal Lab Results - Last 24 Hours (Table) 03/14/21 03/14/21 03/14/21 Range/Units 00:10 00:10 06:10 WBC 14.4 H 13.7 H (3.8-10.6) k/uL Hct 48.1 H (34.0-46.0) % RDW 11.3 L (11.5-15.5) % Neutrophils # 12.6 H 11.0 H (1.3-7.7) k/uL Lymphocytes # 0.3 L 0.7 L (1.0-4.8) k/uL Monocytes # 1.2 H 1.2 H (0-1.0) k/uL ABG pH (7.35-7.45) ABG pCO2 (35-45) mmHg ABG pO2 (83-108) mmHg ABG HCO3 (21-25) mmol/L ABG Total CO2 (19-24) mmol/L ABG O2 Saturation (94-97) % Sodium 118 L* (137-145) mmol/L Chloride 87 L (98-107) mmol/L Carbon Dioxide (22-30) mmol/L Creatinine 0.50 L (0.52-1.04) mg/dL Glucose 106 H (74-99) mg/dL POC Glucose (mg/dL) (75-99) mg/dL Calcium 8.3 L (8.4-10.2) mg/dL AST 87 H (14-36) U/L ALT 55 H (4-34) U/L Alkaline Phosphatase 159 H (38-126) U/L Total Protein 5.0 L (6.3-8.2) g/dL Albumin 2.7 L (3.5-5.0) g/dL Procalcitonin (0.02-0.09) ng/mL Urine Protein (Negative) 03/14/21 03/14/21 03/14/21 Range/Units 11:54 18:42 18:48 WBC (3.8-10.6) k/uL Hct (34.0-46.0) % RDW (11.5-15.5) % Neutrophils # (1.3-7.7) k/uL Lymphocytes # (1.0-4.8) k/uL Monocytes # (0-1.0) k/uL ABG pH (7.35-7.45) ABG pCO2 (35-45) mmHg ABG pO2 (83-108) mmHg ABG HCO3 (21-25) mmol/L ABG Total CO2 (19-24) mmol/L ABG O2 Saturation (94-97) % Sodium 119 L* (137-145) mmol/L Chloride 80 L (98-107) mmol/L Carbon Dioxide 34 H (22-30) mmol/L Creatinine (0.52-1.04) mg/dL Glucose 138 H (74-99) mg/dL POC Glucose (mg/dL) 132 H (75-99) mg/dL Calcium (8.4-10.2) mg/dL AST (14-36) U/L ALT (4-34) U/L Alkaline Phosphatase (38-126) U/L Total Protein (6.3-8.2) g/dL Albumin (3.5-5.0) g/dL Procalcitonin 0.19 H (0.02-0.09) ng/mL Urine Protein (Negative) 03/14/21 03/14/21 03/14/21 Range/Units 19:41 19:59 22:08 WBC (3.8-10.6) k/uL Hct (34.0-46.0) % RDW (11.5-15.5) % Neutrophils # (1.3-7.7) k/uL Lymphocytes # (1.0-4.8) k/uL Monocytes # (0-1.0) k/uL ABG pH 7.20 L 7.20 L (7.35-7.45) ABG pCO2 95 H* 93 H* (35-45) mmHg ABG pO2 (83-108) mmHg ABG HCO3 37 H 36 H (21-25) mmol/L ABG Total CO2 40 H 39 H (19-24) mmol/L ABG O2 Saturation 98.0 H (94-97) % Sodium (137-145) mmol/L Chloride (98-107) mmol/L Carbon Dioxide (22-30) mmol/L Creatinine (0.52-1.04) mg/dL Glucose (74-99) mg/dL POC Glucose (mg/dL) 154 H (75-99) mg/dL Calcium (8.4-10.2) mg/dL AST (14-36) U/L ALT (4-34) U/L Alkaline Phosphatase (38-126) U/L Total Protein (6.3-8.2) g/dL Albumin (3.5-5.0) g/dL Procalcitonin (0.02-0.09) ng/mL Urine Protein (Negative) 03/14/21 03/14/21 03/14/21 Range/Units 23:07 23:36 23:38 WBC (3.8-10.6) k/uL Hct (34.0-46.0) % RDW (11.5-15.5) % Neutrophils # (1.3-7.7) k/uL Lymphocytes # (1.0-4.8) k/uL Monocytes # (0-1.0) k/uL ABG pH (7.35-7.45) ABG pCO2 63 H (35-45) mmHg ABG pO2 365 H (83-108) mmHg ABG HCO3 36 H (21-25) mmol/L ABG Total CO2 38 H (19-24) mmol/L ABG O2 Saturation 100.0 H (94-97) % Sodium (137-145) mmol/L Chloride (98-107) mmol/L Carbon Dioxide (22-30) mmol/L Creatinine (0.52-1.04) mg/dL Glucose (74-99) mg/dL POC Glucose (mg/dL) 133 H (75-99) mg/dL Calcium (8.4-10.2) mg/dL AST (14-36) U/L ALT (4-34) U/L Alkaline Phosphatase (38-126) U/L Total Protein (6.3-8.2) g/dL Albumin (3.5-5.0) g/dL Procalcitonin (0.02-0.09) ng/mL Urine Protein Trace H (Negative) 03/15/21 03/15/21 03/15/21 Range/Units 03:59 03:59 04:04 WBC 15.0 H (3.8-10.6) k/uL Hct (34.0-46.0) % RDW (11.5-15.5) % Neutrophils # 11.5 H (1.3-7.7) k/uL Lymphocytes # 0.5 L (1.0-4.8) k/uL Monocytes # 2.2 H (0-1.0) k/uL ABG pH (7.35-7.45) ABG pCO2 55 H (35-45) mmHg ABG pO2 (83-108) mmHg ABG HCO3 34 H (21-25) mmol/L ABG Total CO2 36 H (19-24) mmol/L ABG O2 Saturation 97.8 H (94-97) % Sodium 118 L* (137-145) mmol/L Chloride 86 L (98-107) mmol/L Carbon Dioxide (22-30) mmol/L Creatinine 0.51 L (0.52-1.04) mg/dL Glucose (74-99) mg/dL POC Glucose (mg/dL) (75-99) mg/dL Calcium (8.4-10.2) mg/dL AST (14-36) U/L ALT (4-34) U/L Alkaline Phosphatase (38-126) U/L Total Protein (6.3-8.2) g/dL Albumin (3.5-5.0) g/dL Procalcitonin (0.02-0.09) ng/mL Urine Protein (Negative) 03/15/21 Range/Units 15:04 WBC (3.8-10.6) k/uL Hct (34.0-46.0) % RDW (11.5-15.5) % Neutrophils # (1.3-7.7) k/uL Lymphocytes # (1.0-4.8) k/uL Monocytes # (0-1.0) k/uL ABG pH (7.35-7.45) ABG pCO2 (35-45) mmHg ABG pO2 (83-108) mmHg ABG HCO3 (21-25) mmol/L ABG Total CO2 (19-24) mmol/L ABG O2 Saturation (94-97) % Sodium 130 L (137-145) mmol/L Chloride (98-107) mmol/L Carbon Dioxide (22-30) mmol/L Creatinine (0.52-1.04) mg/dL Glucose (74-99) mg/dL POC Glucose (mg/dL) (75-99) mg/dL Calcium (8.4-10.2) mg/dL AST (14-36) U/L ALT (4-34) U/L Alkaline Phosphatase (38-126) U/L Total Protein (6.3-8.2) g/dL Albumin (3.5-5.0) g/dL Procalcitonin (0.02-0.09) ng/mL Urine Protein (Negative) Microbiology - Last 24 Hours (Table) 03/13/21 13:38 Blood Culture - Preliminary Blood No Growth after 48 hours 03/13/21 13:38 Blood Culture - Preliminary Blood No Growth after 48 hours 03/14/21 23:05 Gram Stain - Preliminary Sputum Sputum Culture - Preliminary 03/14/21 14:00 Gram Stain - Preliminary Pleural Fluid Body Fluid Culture - Preliminary 03/14/21 14:00 Fungal Culture - Preliminary Pleural Fluid 03/14/21 14:00 Acid Fast Bacilli Culture - Preliminary Pleural Fluid 03/14/21 14:00 Anaerobic Culture - Preliminary Pleural Fluid Assessment and Plan Assessment: This is a 65-year-old female with no known past medical history that does not usually follow-up with any doctors presented to the emergency room with worsening shortness of breath and lower extremity edema. Patient has extensive workup in the ER with computed tomography scan of the chest showing bilateral lung consolidation/masses and bilateral pleural effusion. Computed tomography scan of the abdomen showing liver masses suspicious for metastatic disease with sclerotic metastasis into the sacrum and right ilium. Patient will be admitted to the hospital for further management of her medical problems noted below. 1. Metastatic cancer most likely primary lung status post bronchoscopy with evidence of right upper lobe endobronchial tumor obstructing the right upper lobe bronchus status post BAL. Status post diagnostic right-sided thoracentesis 2. Acute hypercapnic respiratory failure requiring sedation and mechanical intubation on 03/14 3. Acute toxo metabolic encephalopathy secondary to above 4. 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 Sodium level on presentation 116. Nephrology consulted and following closely Started on gentle IV fluid hydration. s/p Samsca x1. Avoid overcorrection 5. Bilateral lower extremity edema, ultrasound ordered negative for acute DVT 6. Acute hypoxic respiratory failure secondary to above 7. Mild to moderate malnutrition with low BMI, probably secondary to underlying malignancy. dietitian will be consulted when patient's clinical status allowed to do so 8. CODE STATUS, patient is full code. Discussed in details with her today in the emergency room
--- NOTE | 2021-03-15 19:26 | P.EN ---
since earlier this evening patient starting having changes in mental status and became more lethargic. she initially responded to narcan , and ABG showed acute hypercapnic respiratory acidosis , BIpap attempted for short period initially after he mentation improved with narcan, however, she was very resistant to care and screaming to remove the bipap. at that point it was discontinued, patient sgnificantly improved and following commands. follow up ABG done after one hour, still showing acute hypercapnia , and now her mentation was worsening again, at this point she is not responsive to narcan. decision made for elective intubation for vent support case discussed with ICU attending
[2021-03-15] MEDS: LIDOCAINE 5% PATCH TOPICAL SCH (20:29)
[2021-03-15 23:16] LABS: Glucose,Whole Blood 167 mg/dL (75-99)
[2021-03-16 05:11] LABS: Basophils % (A) 0 %; Eosinophils # (A) 0.1 k/uL (0-0.7); Eosinophils % (A) 1 %; HCT 46.9 % (34.0-46.0); HGB 15.7 gm/dL (11.4-16.0); Lymphocytes # (A) 0.3 k/uL (1.0-4.8); Lymphocytes % (A) 2 %; MCH 31.6 pg (25.0-35.0); MCHC 33.5 g/dL (31.0-37.0); MCV 94.4 fL (80.0-100.0); Mean Platelet Volume 7.5; Monocytes # (A) 0.8 k/uL (0-1.0); Monocytes % (A) 5 %; Neutrophils # (A) 13.7 k/uL (1.3-7.7); Neutrophils % (A) 91 %; Platelet Count 336 k/uL (150-450); RBC 4.97 m/uL (3.80-5.40); RDW 12.1 % (11.5-15.5)
[2021-03-16] MEDS: methylPREDNISolone SOD SUCCI 40 MG/ML 1 ML VIAL IV SCH ×3 (05:12→18:00)
[2021-03-16] MEDS: NOREPINEPHRINE 4 MG in SODIUM CHLORIDE 0.9% 250 ML IV SCH (05:14)
[2021-03-16] MEDS: DEXTROSE 5% IN WATER 1,000 ML IV SCH (05:15)
[2021-03-16 05:28] LABS: African American GFR (CKD) >90 (>60 ml/min/1.73 sqM); Anion Gap 4 mmol/L; Blood Urea Nitrogen 17 mg/dL (7-17); Calcium 9.2 mg/dL (8.4-10.2); Carbon Dioxide 29 mmol/L (22-30); Chloride 92 mmol/L (98-107); Glucose 361 mg/dL (74-99); Non-African American GFR(CKD) >90 (>60 ml/min/1.73 sqM); Potassium 3.9 mmol/L (3.5-5.1); Sodium 125 mmol/L (137-145)
[2021-03-16] MEDS ORDERED: Potassium Replacement Protocol 1 EACH MISC MISCELLANE PRN (06:03)
[2021-03-16] MEDS ORDERED: POTASSIUM BICARBONATE/CIT AC 20 MEQ TABLET.EFF NG-TUBE SCH (07:00)
--- NOTE | 2021-03-16 07:36 | XR ---
EXAMINATION TYPE: XR chest 1V portable DATE OF EXAM: 03/16/2021 CLINICAL HISTORY: Difficulty breathing progress study. TECHNIQUE: Single AP portable upright view of the chest is obtained. COMPARISON: Chest x-ray from one day earlier and older studies. CTA chest 3 days ago. FINDINGS: Stable endotracheal and orogastric tubes with side port above diaphragmatic hiatus, advise advancing the latter 8 to 9 cm. Persistent completely opacified right lung apex likely corresponding to obstructing suprahilar mass w ith postobstructive atelectasis as there is right upper lung volume loss. Persistent small to moderat e-sized right pleural effusion with associated right lung edema and/or infiltrates. Scattered reticul onodular opacities throughout the left lung redemonstrated. Cardiac silhouette size is stable and wit hin normal limits. Osseous structures remain demineralized. Underlying scoliosis redemonstrated. IMPRESSION: 1. Stable small to moderate size right pleural effusion. Stable right upper lung masslike consolidati on likely reflecting underlying mass or neoplasm and peripheral postobstructive atelectasis. Right-si ded volume loss. Bilateral right greater than left multifocal acute opacities or infiltrates are pres ent. No significant change from one day earlier. Advise orogastric tube advancement.
[2021-03-16 08:40] LABS: ABG Base Excess 10.5 mmol/L; ABG HCO3 35 mmol/L (21-25); ABG Oxygen Saturation 98.4 % (94-97); ABG PCO2 51 mmHg (35-45); ABG PH 7.44 (7.35-7.45); ABG PO2 113 mmHg (83-108); ABG TCO2 36 mmol/L (19-24); Allen Test Performed? Yes
[2021-03-16] MEDS: CHLORHEXIDINE GLUCONATE 15 ML CUP MUCOUS MEM SCH (09:24)
[2021-03-16] MEDS: AZITHROMYCIN 250 MG TAB PO SCH (09:24)
[2021-03-16] MEDS: ENOXAPARIN 40 MG/0.4 ML SYRINGE SQ SCH (09:24)
[2021-03-16] MEDS ORDERED: DEXMEDETOMIDINE/0.9% NACL(PMX) 400 MCG in EMPTY BAG 1 BAG IV SCH (10:15)
[2021-03-16 12:00] LABS: Glucose,Whole Blood 162 mg/dL (75-99)
--- NOTE | 2021-03-16 12:08 | P.PN ---
Subjective Patient remains sedated and intubated. No acute events overnight reported to me by nursing staff. Objective - Vital Signs Vital signs: Vital Signs Temp 98.8 F 03/16/21 08:00 Pulse 81 03/16/21 11:00 Resp 27 H 03/16/21 11:00 BP 113/73 03/16/21 11:00 Pulse Ox 94 L 03/16/21 11:00 Intake & Output 03/15/21 03/16/21 03/16/21 18:59 06:59 18:59 Intake Total 5929.208 5637.200 551 Output Total 2200 1290 505 Balance -868.636 216.200 46 Weight 55.7 kg 54.6 kg Intake: IV 110 835 425 Dextrose 5% in Water 1, 825 375 000 ml @ 75 mls/hr IV . [id number] [facility] Rx#:[id number] KVO 110 10 cefTRIAXone 1 gm In 50 Sodium Chloride 0.9% 50 ml @ 100 mls/hr IVPB Q24HR [facility] Rx#:[id number] Intake, IV Titration 1221.364 229.200 Amount Norepinephrine 4 mg In 86.355 Sodium Chloride 0.9% 250 ml @ 0.05 MCG/KG/MIN 10. 839 mls/hr IV .[id number] [facility] Rx#:[id number] Sodium Chloride 0.9% 1, 1000 000 ml @ 999 mls/hr IV . Q1H1M [facility] Rx#:[id number] cefTRIAXone 1 gm In 50 Sodium Chloride 0.9% 50 ml @ 100 mls/hr IVPB Q24HR [facility] Rx#:[id number] propofoL 1,000 mg In 85.009 229.200 Empty Bag 1 bag @ Titrate IV .Q0M [facility] Rx#: [id number] Tube Feeding 352 96 Other 90 30 Output: Urine 2200 1290 505 Other: Voiding Method Indwelling Catheter Indwelling Catheter Indwelling Catheter - Exam General: The patient is sedated and intubated Eye: there is normal conjunctiva bilaterally. Neck: The neck is supple, there is no JVD. Cardiovascular: Normal S1-S2, no S3-S4, no murmurs. Respiratory: Lungs clear to auscultation bilaterally Gastrointestinal: Abdomen is soft, nontender Musculoskeletal: There is +1 pedal edema. Skin: Skin is warm and dry - Labs CBC & Chem 7: 03/16/21 04:41 03/16/21 04:41 Labs: Abnormal Lab Results - Last 24 Hours (Table) 03/15/21 03/15/21 03/15/21 Range/Units 15:04 22:04 23:15 WBC (3.8-10.6) k/uL Hct (34.0-46.0) % Neutrophils # (1.3-7.7) k/uL Lymphocytes # (1.0-4.8) k/uL Sodium 130 L 130 L (137-145) mmol/L Chloride (98-107) mmol/L Glucose (74-99) mg/dL POC Glucose (mg/dL) 167 H (75-99) mg/dL 03/16/21 03/16/21 03/16/21 Range/Units 04:41 04:41 11:58 WBC 15.0 H (3.8-10.6) k/uL Hct 46.9 H (34.0-46.0) % Neutrophils # 13.7 H (1.3-7.7) k/uL Lymphocytes # 0.3 L (1.0-4.8) k/uL Sodium 125 L (137-145) mmol/L Chloride 92 L (98-107) mmol/L Glucose 361 H (74-99) mg/dL POC Glucose (mg/dL) 162 H (75-99) mg/dL Microbiology - Last 24 Hours (Table) 03/14/21 00:10 Blood Culture - Preliminary Blood No Growth after 24 hours 03/14/21 14:00 Gram Stain - Preliminary Pleural Fluid Body Fluid Culture - Preliminary 03/14/21 14:00 Acid Fast Bacilli Smear - Final Pleural Fluid Acid Fast Bacilli Culture - Preliminary 03/13/21 13:38 Blood Culture - Preliminary Blood No Growth after 48 hours 03/13/21 13:38 Blood Culture - Preliminary Blood No Growth after 48 hours 03/14/21 23:05 Gram Stain - Preliminary Sputum Sputum Culture - Preliminary Assessment and Plan Assessment: This is a 65-year-old female with no known past medical history that does not usually follow-up with any doctors presented to the emergency room with worsening shortness of breath and lower extremity edema. Patient has extensive workup in the ER with computed tomography scan of the chest showing bilateral lung consolidation/masses and bilateral pleural effusion. Computed tomography scan of the abdomen showing liver masses suspicious for metastatic disease with sclerotic metastasis into the sacrum and right ilium. Patient will be admitted to the hospital for further management of her medical problems noted below. 1. Metastatic cancer most likely primary lung status post bronchoscopy with evidence of right upper lobe endobronchial tumor obstructing the right upper lobe bronchus status post BAL. Status post diagnostic right-sided thoracentesis 2. Acute hypercapnic respiratory failure requiring sedation and mechanical intubation on 03/14 3. Acute toxo metabolic encephalopathy secondary to above 4. 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 Sodium level on presentation 116. Nephrology consulted and following closely Started on gentle IV fluid hydration. s/p Samsca x1. Avoid overcorrection 5. Bilateral lower extremity edema, ultrasound ordered negative for acute DVT 6. Acute hypoxic respiratory failure secondary to above 7. Mild to moderate malnutrition with low BMI, probably secondary to underlying malignancy. dietitian will be consulted when patient's clinical status allowed to do so 8. CODE STATUS, patient is full code. Discussed in details with her today in the emergency room Continue ICU care and supportive care. Awaiting pathology report.
[2021-03-16] MEDS ORDERED: INSULIN ASPART (NovoLOG) 100 UNIT/ML VIAL SQ SCH (12:15)
--- NOTE | 2021-03-16 13:21 | P.PN ---
Subjective Progress Note Date: 03/16/21 Principal diagnosis: lung, liver and bone lesions Pt is extubated when seen, she is sitting up in bed, she responds appropriately, she denies any pain, SOB. Objective - Vital Signs Vital signs: Vital Signs Temp 98.8 F 03/16/21 08:00 Pulse 81 03/16/21 11:00 Resp 27 H 03/16/21 11:00 BP 113/73 03/16/21 11:00 Pulse Ox 94 L 03/16/21 11:00 Intake & Output 03/15/21 03/16/21 03/16/21 18:59 06:59 18:59 Intake Total 3129.548 3080.200 551 Output Total 2200 1290 505 Balance -868.636 216.200 46 Weight 55.7 kg 54.6 kg Intake: IV 110 835 425 Dextrose 5% in Water 1, 825 375 000 ml @ 75 mls/hr IV . [id number] [facility] Rx#:[id number] KVO 110 10 cefTRIAXone 1 gm In 50 Sodium Chloride 0.9% 50 ml @ 100 mls/hr IVPB Q24HR [facility] Rx#:[id number] Intake, IV Titration 1221.364 229.200 Amount Norepinephrine 4 mg In 86.355 Sodium Chloride 0.9% 250 ml @ 0.05 MCG/KG/MIN 10. 839 mls/hr IV .[id number] [facility] Rx#:[id number] Sodium Chloride 0.9% 1, 1000 000 ml @ 999 mls/hr IV . Q1H1M [facility] Rx#:[id number] cefTRIAXone 1 gm In 50 Sodium Chloride 0.9% 50 ml @ 100 mls/hr IVPB Q24HR [facility] Rx#:[id number] propofoL 1,000 mg In 85.009 229.200 Empty Bag 1 bag @ Titrate IV .Q0M [facility] Rx#: [id number] Tube Feeding 352 96 Other 90 30 Output: Urine 2200 1290 505 Other: Voiding Method Indwelling Catheter Indwelling Catheter Indwelling Catheter - Constitutional General appearance: Present: cooperative, no acute distress, thin - EENT Eyes: Present: anicteric sclerae, EOMI ENT: Present: hearing grossly normal - Musculoskeletal Musculoskeletal: Present: generalized weakness - Psychiatric Psychiatric: Present: A&O x's 3, appropriate affect, intact judgment & insight - Labs CBC & Chem 7: 11/17/21 04:41 03/16/21 04:41 Labs: Abnormal Lab Results - Last 24 Hours (Table) 03/15/21 03/15/21 03/15/21 Range/Units 15:04 22:04 23:15 WBC (3.8-10.6) k/uL Hct (34.0-46.0) % Neutrophils # (1.3-7.7) k/uL Lymphocytes # (1.0-4.8) k/uL ABG pCO2 (35-45) mmHg ABG pO2 (83-108) mmHg ABG HCO3 (21-25) mmol/L ABG Total CO2 (19-24) mmol/L ABG O2 Saturation (94-97) % Sodium 130 L 130 L (137-145) mmol/L Chloride (98-107) mmol/L Glucose (74-99) mg/dL POC Glucose (mg/dL) 167 H (75-99) mg/dL 03/16/21 03/16/21 03/16/21 Range/Units 04:41 04:41 08:38 WBC 15.0 H (3.8-10.6) k/uL Hct 46.9 H (34.0-46.0) % Neutrophils # 13.7 H (1.3-7.7) k/uL Lymphocytes # 0.3 L (1.0-4.8) k/uL ABG pCO2 51 H (35-45) mmHg ABG pO2 113 H (83-108) mmHg ABG HCO3 35 H (21-25) mmol/L ABG Total CO2 36 H (19-24) mmol/L ABG O2 Saturation 98.4 H (94-97) % Sodium 125 L (137-145) mmol/L Chloride 92 L (98-107) mmol/L Glucose 361 H (74-99) mg/dL POC Glucose (mg/dL) (75-99) mg/dL 03/16/21 Range/Units 11:58 WBC (3.8-10.6) k/uL Hct (34.0-46.0) % Neutrophils # (1.3-7.7) k/uL Lymphocytes # (1.0-4.8) k/uL ABG pCO2 (35-45) mmHg ABG pO2 (83-108) mmHg ABG HCO3 (21-25) mmol/L ABG Total CO2 (19-24) mmol/L ABG O2 Saturation (94-97) % Sodium (137-145) mmol/L Chloride (98-107) mmol/L Glucose (74-99) mg/dL POC Glucose (mg/dL) 162 H (75-99) mg/dL Microbiology - Last 24 Hours (Table) 03/14/21 23:05 Gram Stain - Preliminary Sputum Sputum Culture - Preliminary Martha albicans 03/14/21 00:10 Blood Culture - Preliminary Blood No Growth after 24 hours 03/14/21 14:00 Gram Stain - Preliminary Pleural Fluid Body Fluid Culture - Preliminary 03/14/21 14:00 Acid Fast Bacilli Smear - Final Pleural Fluid Acid Fast Bacilli Culture - Preliminary 03/13/21 13:38 Blood Culture - Preliminary Blood No Growth after 48 hours 03/13/21 13:38 Blood Culture - Preliminary Blood No Growth after 48 hours Assessment and Plan (1) Hyponatremia Current Visit: Yes Status: Acute Priority: High Code(s): E87.1 - HYPO- OSMOLALITY AND HYPONATREMIA SNOMED Code(s): 74229021 (2) Lung mass Current Visit: Yes Status: Acute Priority: High Code(s): R91.8 - OTHER NONSPECIFIC ABNORMAL FINDING OF LUNG FIELD SNOMED Code(s): 605397771 (3) Pleural effusion Current Visit: Yes Status: Acute Priority: High Code(s): J90 - PLEURAL EFFUSION, NOT ELSEWHERE CLASSIFIED SNOMED Code(s): 83843728 Plan: Clinical picture and imaging highly suggestive of a lung primary malignancy. Thoracentesis done for palliation, sent for cytology. S/P bronch and tissue biopsy. Tissue request for NGS testing will be sent. Plan for liquid biopsy in ofc. F/U Dr. Moon scheduled, in chart. Pending MRI brain and NM bone scan to complete staging.
--- NOTE | 2021-03-16 13:27 | P.PN ---
Subjective Progress Note Date: 03/16/21 Principal diagnosis: Metastatic lung cancer On 03/14/2021 patient seen in follow-up in the emergency department where she is awaiting a bed on selective care unit, she is currently on 15 L of oxygen pulse ox is 98%, when the patient gets up out of bed her pulse ox drops 65, she easily desaturates, she does recover with rest. Is awake and alert, currently seems to be in no acute distress, she is in sinus mechanism with a rate of 86, blood pressure stable, blood pressure is 110/79, afebrile. Patient continues on azithromycin and Rocephin for empiric antibiotic coverage, she is on 0.9 normal saline at a rate of 75 ML per hour, she is on GI and DVT prophylaxis. Labs have been reviewed, her sodium is 119, white blood cell count is 13.7, hemoglobin is 15.9, BUN is 12 and creatinine 0.62. Echocardiogram has been completed showing EF of 55-60%, mild pulmonary hypertension with right-sided pressure of 43.5 mmHg. Lower extremity Dopplers showed possibility of a chronic DVTs. Ultrasound the chest has been completed showing a right pleural effusion pocket of 10.6 cm. patient denies any chest pain, no hemoptysis. The findings of the CT chest and chest x-ray have been reviewed and there is a high possibility of metastatic lung carcinoma Patient was reevaluated today on 03/15/2021, patient developed acute hypercapnic rest or with failure yesterday, may have been related to a dose of Dilaudid that she was given for pain control, patient was placed on BiPAP by the admitting physician, however continued to show significant hypercapnia with low pH, her pO2 on BiPAP at 40% was 108, and her pCO2 remained 93 with a pH of 7.20. Patient was seen by the rapid response team, intubated since her pCO2 remained high and the patient became up on that, repeat ABG post intubation showed a pO2 of 365 pCO2 of 63 pH of 7.36. Patient remained on mechanical ventilation overni ght, and today she is down to 40% FiO2 with ABG showing a pO2 of 83 pCO2 55 pH of 7.41. Obviously based on this ABG, the patient does have chronic hypercapnia and this time she had acute on chronic hypercapnic respiratory failure requiring intubation and mechanical ventilation. Sodium today is 118 potassium is 4.7 chloride is 86. BUN is 14 and creatinine 0.51 patient remains intubated and mechanically ventilated this morning, and considering the patient is intubated, discussed her condition with her daughter over the phone, and explained to the daughter that this is the best time to go ahead and proceed with bronchoscopy and endobronchial biopsy of right upper lobe endobronchial tumor. Daughter agreed with that decision, and consent was obtained over the phone. I went ahead and performed bronchoscopy and multiple endobronchial biopsies of large endobronchial tumor completely occluding the right upper lobe bronchus. Brushings of the tumor were done, and washings were also done. These were all sent to pathology. In the meantime the patient remains on assist control rate of 16 tidal volume is 350 FiO2 50%, and PEEP of 5. Reevaluated today on 03/16/2021, patient remains intubated and mechanically ventilated. She is presently on assist control rate of 16 tidal volume of 350 FiO2 50% and PEEP of 5. EG showed a pO2 of 113 pCO2 of 51 pH of 7.44. Sodium today is 125, the rest of the labs are basically unremarkable. Chest x-ray continues to show right upper lobe consolidation, and opacification, there is also a right-sided pleural effusion and right lower lobe atelectasis. Left side showed multifocal opacities or infiltrates. Patient was on propofol, and I have recommended stopping the propofol, considering Precedex, however will start the weaning process after propofol was discontinued. As the patient was more awake, I was able to transition the patient to pressure support of 8 and CPAP, and she seemed to do quite well with a pressure support 8 and CPAP. And I proceeded to extubating the patient to a nasal cannula with BiPAP at bedside if necessary. Patient was extubated uneventfully, and she will be maintained on her usual bronchodilators, we will continue to monitor the patient in the ICU today. Objective - Vital Signs Vital signs: Vital Signs Temp 98.8 F 03/16/21 08:00 Pulse 81 03/16/21 11:00 Resp 27 H 03/16/21 11:00 BP 113/73 03/16/21 11:00 Pulse Ox 94 L 03/16/21 11:00 Intake & Output 03/15/21 03/16/21 03/16/21 18:59 06:59 18:59 Intake Total 8409.476 8542.200 551 Output Total 2200 1290 505 Balance -868.636 216.200 46 Weight 55.7 kg 54.6 kg Intake: IV 110 835 425 Dextrose 5% in Water 1, 825 375 000 ml @ 75 mls/hr IV . [id number] [facility] Rx#:[id number] KVO 110 10 cefTRIAXone 1 gm In 50 Sodium Chloride 0.9% 50 ml @ 100 mls/hr IVPB Q24HR [facility] Rx#:[id number] Intake, IV Titration 1221.364 229.200 Amount Norepinephrine 4 mg In 86.355 Sodium Chloride 0.9% 250 ml @ 0.05 MCG/KG/MIN 10. 839 mls/hr IV .[id number] [facility] Rx#:[id number] Sodium Chloride 0.9% 1, 1000 000 ml @ 999 mls/hr IV . Q1H1M [facility] Rx#:[id number] cefTRIAXone 1 gm In 50 Sodium Chloride 0.9% 50 ml @ 100 mls/hr IVPB Q24HR [facility] Rx#:[id number] propofoL 1,000 mg In 85.009 229.200 Empty Bag 1 bag @ Titrate IV .Q0M [facility] Rx#: [id number] Tube Feeding 352 96 Other 90 30 Output: Urine 2200 1290 505 Other: Voiding Method Indwelling Catheter Indwelling Catheter Indwelling Catheter - Exam Physical Exam: Revealed a 65-year-old female intubated, sedated, on mechanical ventilation, presently on propofol. Which I have discontinued and shortly after place the patient on pressure support of 8 and CPAP Head: Atraumatic, normocephalic. Endotracheal tube is intact orogastric tube is intact. HEENT:[Neck is supple.] [No neck masses.] [No thyromegaly.] [No JVD.] Chest: [Scattered rhonchi bilaterally.. Cardiac Exam: [Normal S1 and S2, no S3 gallop, no murmur.] Abdomen: [Soft, nontender, no megaly, no rebound, no guarding, normal bowel sounds.] Extremities: [No clubbing, no edema, no cyanosis.] Neurological Exam: Off propofol, patient was noted to be appropriate, and followed simple instructions. Psychiatric: Off propofol patient had normal mood affect and normal mental status examination. - Labs CBC & Chem 7: 03/16/21 04:41 03/16/21 04:41 Labs: Abnormal Lab Results - Last 24 Hours (Table) 03/15/21 03/15/21 03/15/21 Range/Units 15:04 22:04 23:15 WBC (3.8-10.6) k/uL Hct (34.0-46.0) % Neutrophils # (1.3-7.7) k/uL Lymphocytes # (1.0-4.8) k/uL ABG pCO2 (35-45) mmHg ABG pO2 (83-108) mmHg ABG HCO3 (21-25) mmol/L ABG Total CO2 (19-24) mmol/L ABG O2 Saturation (94-97) % Sodium 130 L 130 L (137-145) mmol/L Chloride (98-107) mmol/L Glucose (74-99) mg/dL POC Glucose (mg/dL) 167 H (75-99) mg/dL 03/16/21 03/16/21 03/16/21 Range/Units 04:41 04:41 08:38 WBC 15.0 H (3.8-10.6) k/uL Hct 46.9 H (34.0-46.0) % Neutrophils # 13.7 H (1.3-7.7) k/uL Lymphocytes # 0.3 L (1.0-4.8) k/uL ABG pCO2 51 H (35-45) mmHg ABG pO2 113 H (83-108) mmHg ABG HCO3 35 H (21-25) mmol/L ABG Total CO2 36 H (19-24) mmol/L ABG O2 Saturation 98.4 H (94-97) % Sodium 125 L (137-145) mmol/L Chloride 92 L (98-107) mmol/L Glucose 361 H (74-99) mg/dL POC Glucose (mg/dL) (75-99) mg/dL 03/16/21 Range/Units 11:58 WBC (3.8-10.6) k/uL Hct (34.0-46.0) % Neutrophils # (1.3-7.7) k/uL Lymphocytes # (1.0-4.8) k/uL ABG pCO2 (35-45) mmHg ABG pO2 (83-108) mmHg ABG HCO3 (21-25) mmol/L ABG Total CO2 (19-24) mmol/L ABG O2 Saturation (94-97) % Sodium (137-145) mmol/L Chloride (98-107) mmol/L Glucose (74-99) mg/dL POC Glucose (mg/dL) 162 H (75-99) mg/dL Microbiology - Last 24 Hours (Table) 03/14/21 23:05 Gram Stain - Preliminary Sputum Sputum Culture - Preliminary Martha albicans 03/14/21 00:10 Blood Culture - Preliminary Blood No Growth after 24 hours 03/14/21 14:00 Gram Stain - Preliminary Pleural Fluid Body Fluid Culture - Preliminary 03/14/21 14:00 Acid Fast Bacilli Smear - Final Pleural Fluid Acid Fast Bacilli Culture - Preliminary 03/13/21 13:38 Blood Culture - Preliminary Blood No Growth after 48 hours 03/13/21 13:38 Blood Culture - Preliminary Blood No Growth after 48 hours Assessment and Plan Assessment: Impression: Acute on chronic hypercapnic respiratory failure, likely induced by worsening bronchospasm and possible underlying COPD although the patient never smoked. This required intubation and mechanical ventilation, patient failed to respond to BiPAP. Her hypercapnia may have been exacerbated by narcotics given for pain control. 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 Considered severe. Abnormal liver enzymes most likely secondary to hepatic metastasis. Status post bronchoscopy with multiple endobronchial biopsies brushings and washings of right upper lobe endobronchial tumor obstructing the right upper lobe Bronchus. This was done on 03/15/2021. Recommendation: Will give the patient a weaning trial on pressure support of 8 and CPAP, and we'll likely proceed to extubating the patient today. Continue bronchodilators. Continue antibiotics. Continue steroids. Continue GI and DVT prophylaxis. Overall prognosis is extremely poor and guarded, updated her daughter about her condition yesterday after bronchoscopy Critical care time is over 30 minutes Time with Patient: Greater than 30
[2021-03-16] MEDS: ONDANSETRON 4 MG/2 ML VIAL IVP PRN (13:42)
--- NOTE | 2021-03-16 15:19 | PN ---
PROGRESS NOTE Patient is seen for followup for hyponatremia. Patient's sodium had increased to 130 yesterday after she had gotten a dose of tolvaptan, and subsequently she was started on D5W. She remained around 130 as of last night but this morning was down to 125. In the meantime, patient has also been extubated. She is awake, not in any acute distress. On examination today, blood pressure is 113/73, heart rate 81 per minute. She is afebrile. EXAMINATION OF THE HEART: S1 and S2. EXAMINATION OF LUNGS: Bilateral breath sounds are heard. Abdomen is soft. Examination of lower extremities shows 1+ edema. ME[employer]ER exam shows patient is slightly confused. She is moving all 4 extremities. Labs show sodium 125, potassium 3.9, chloride 92. CO2 is 29, BUN 17, creatinine 0.5. ASSESSMENT: 1. Hyponatremia with high urine osmolality on admission. It is improved with tolvaptan and had not improved significantly with saline initially. Suggestive of underlying SIADH. However, serum sodium had increased to 130 yesterday and therefore patient was started on D5W. This morning it is down to 125 and the D5W has been discontinued. Hopefully patient will be eating and she can maintain her sodium levels. The D5W was started in an attempt to avoid further increase in the sodium since it was a rapid rise from 118 to 130 in a matter of 8 to 9 hours. 2. Liver mass and lung nodules with high suspicion for underlying malignancy with right pleural effusion, status post thoracentesis. Biopsies still pending. Patient had BAL. 3. Acute hypercapnic respiratory failure requiring mechanical intubation, currently extubated. 4. Lower extremity edema with low albumin levels, clinically otherwise not significantly hypervolemic. No evidence of DVT in the lower extremities. PLAN: Discontinue D5W. Repeat labs. Repeat sodium in about 4 to 6 hours. Continue close monitoring of serum sodium levels. MMODL / IJN: [id number] /
--- NOTE | 2021-03-16 16:35 | MR ---
EXAMINATION TYPE: MR brain wo/w con DATE OF EXAM: 03/16/2021 COMPARISON: NONE HISTORY: lung mass, liver lesions. Suspected metastatic lung cancer. TECHNIQUE: Multiplanar, multisequence images of the brain and brainstem is performed without and with IV contras t, utilizing 5.5 mL intravenous Gadavist . FINDINGS: Diffusion weighted images demonstrate no evidence of a recent infarct or other diffusion ab normality. There is mild ventricular and sulcal prominence. Scattered small foci of T2 hyperintensit y are seen throughout the white matter bilaterally. Approximately 15-20 scattered lesions are seen. T hese are nonspecific in appearance and distribution. Midline structures demonstrate normal morphology. The craniocervical junction appears within normal limits. Post contrast images demonstrate no abnormal enhancement. The dural venous sinuses appear pa tent. The visualized sinuses are clear and the globes are intact. Nasal septum slightly deviated to r ight of midline. Nonspecific diffuse bilateral parotid prominence and enhancement, correlate clinical ly. IMPRESSION: 1. No suspicious enhancing masses to suggest metastatic disease to the brain. 2. Background mild diffuse cerebral atrophy and chronic small vessel ischemic changes. 3. Symmetric prominent and diffusely enhancing parotid glands raises concern for bilateral parotitis, correlate clinically.
[2021-03-16] MEDS: SODIUM CHLORIDE 0.9% 1,000 ML IV SCH (16:57)
[2021-03-16 17:26] LABS: Glucose,Whole Blood 162 mg/dL (75-99)
[2021-03-16] MEDS: INSULIN ASPART (NovoLOG) 100 UNIT/ML VIAL SQ SCH ×2 (18:00→20:44)
[2021-03-16 20:41] LABS: Glucose,Whole Blood 140 mg/dL (75-99)
[2021-03-16] MEDS: LIDOCAINE 5% PATCH TOPICAL SCH (20:42)
[2021-03-17] MEDS: methylPREDNISolone SOD SUCCI 40 MG/ML 1 ML VIAL IV SCH ×3 (00:40→20:28)
[2021-03-17] MEDS: MELATONIN 5 MG TABLET PO PRN ×2 (00:40→20:26)
[2021-03-17] MEDS: SODIUM CHLORIDE 0.9% 1,000 ML IV SCH ×2 (00:44→14:40)
[2021-03-17] MEDS: NOREPINEPHRINE 4 MG in SODIUM CHLORIDE 0.9% 250 ML IV SCH (04:13)
[2021-03-17 05:09] LABS: Basophils % (A) 0 %; Eosinophils # (A) 0.1 k/uL (0-0.7); Eosinophils % (A) 1 %; HCT 44.8 % (34.0-46.0); HGB 14.2 gm/dL (11.4-16.0); Lymphocytes # (A) 0.3 k/uL (1.0-4.8); Lymphocytes % (A) 2 %; MCH 30.5 pg (25.0-35.0); MCHC 31.6 g/dL (31.0-37.0); MCV 96.6 fL (80.0-100.0); Mean Platelet Volume 7.1; Monocytes # (A) 0.7 k/uL (0-1.0); Monocytes % (A) 3 %; Neutrophils # (A) 18.9 k/uL (1.3-7.7); Neutrophils % (A) 94 %; Platelet Count 334 k/uL (150-450); RBC 4.64 m/uL (3.80-5.40); RDW 11.4 % (11.5-15.5); WBC 20.1 k/uL (3.8-10.6)
[2021-03-17 05:20] LABS: African American GFR (CKD) >90 (>60 ml/min/1.73 sqM); Anion Gap 1 mmol/L; Blood Urea Nitrogen 13 mg/dL (7-17); Calcium 8.8 mg/dL (8.4-10.2); Carbon Dioxide 32 mmol/L (22-30); Chloride 99 mmol/L (98-107); Glucose 137 mg/dL (74-99); Non-African American GFR(CKD) >90 (>60 ml/min/1.73 sqM); Potassium 4.1 mmol/L (3.5-5.1); Sodium 132 mmol/L (137-145)
[2021-03-17] MEDS: INSULIN ASPART (NovoLOG) 100 UNIT/ML VIAL SQ SCH ×4 (06:09→20:23)
[2021-03-17] MEDS: AZITHROMYCIN 250 MG TAB PO SCH (08:53)
[2021-03-17] MEDS: ENOXAPARIN 40 MG/0.4 ML SYRINGE SQ SCH (08:53)
--- NOTE | 2021-03-17 08:56 | XR ---
EXAMINATION TYPE: XR chest 1V portable DATE OF EXAM: 03/17/2021 COMPARISON: 03/16/2021 INDICATION: Tube placement TECHNIQUE: Single frontal view of the chest is obtained. FINDINGS: The heart size is normal. The pulmonary vasculature is normal. There is opacification through the right lung with infiltrate evident within the aerated right lung. Diffuse mild increased lung markings at the left lung. Findings are stable. Lines and catheters been removed over the interval. IMPRESSION: 1. Stable appearance of lung findings. Continued follow-up is recommended.
[2021-03-17] MEDS: ALPRAZolam 0.25 MG TAB PO PRN ×2 (10:03→17:53)
--- NOTE | 2021-03-17 11:36 | P.PN ---
Subjective Patient was extubated successfully yesterday. She is sitting in the chair today. She does not have any complaints. Objective - Vital Signs Vital signs: Vital Signs Temp 97.8 F 03/17/21 08:00 Pulse 83 03/17/21 10:00 Resp 24 03/17/21 10:00 BP 118/72 03/17/21 10:00 Pulse Ox 93 L 03/17/21 09:00 Intake & Output 03/16/21 03/17/21 03/17/21 18:59 06:59 18:59 Intake Total 1076 900 475 Output Total 1305 830 160 Balance -229 70 315 Intake: IV 950 900 275 Dextrose 5% in Water 1, 675 000 ml @ 75 mls/hr IV . [id number] [facility] Rx#:[id number] Sodium Chloride 0.9% 1, 225 900 225 000 ml @ 75 mls/hr IV . [id number] [facility] Rx#:[id number] cefTRIAXone 1 gm In 50 50 Sodium Chloride 0.9% 50 ml @ 100 mls/hr IVPB Q24HR [facility] Rx#:[id number] Oral 200 Tube Feeding 96 Other 30 Output: Urine 1305 830 160 Other: Voiding Method Indwelling Catheter Indwelling Catheter Indwelling Catheter - Exam General: The patient is awake and alert, in no distress. Patient is cachectic and appeared chronically ill Eye: there is normal conjunctiva bilaterally. Neck: The neck is supple, there is no JVD. Cardiovascular: Normal S1-S2, no S3-S4, no murmurs. Respiratory: Lungs clear to auscultation bilaterally Gastrointestinal: Abdomen is soft, nontender Musculoskeletal: There is no pedal edema. Neurological:. Speech is normal. Skin: Skin is warm and dry - Labs CBC & Chem 7: 03/17/21 04:46 03/17/21 04:46 Labs: Abnormal Lab Results - Last 24 Hours (Table) 03/16/21 03/16/21 03/16/21 Range/Units 08:38 11:58 17:24 WBC (3.8-10.6) k/uL RDW (11.5-15.5) % Neutrophils # (1.3-7.7) k/uL Lymphocytes # (1.0-4.8) k/uL ABG pCO2 51 H (35-45) mmHg ABG pO2 113 H (83-108) mmHg ABG HCO3 35 H (21-25) mmol/L ABG Total CO2 36 H (19-24) mmol/L ABG O2 Saturation 98.4 H (94-97) % Sodium (137-145) mmol/L Carbon Dioxide (22-30) mmol/L Creatinine (0.52-1.04) mg/dL Glucose (74-99) mg/dL POC Glucose (mg/dL) 162 H 162 H (75-99) mg/dL 03/16/21 03/16/21 03/17/21 Range/Units 17:39 20:40 04:46 WBC 20.1 H (3.8-10.6) k/uL RDW 11.4 L (11.5-15.5) % Neutrophils # 18.9 H (1.3-7.7) k/uL Lymphocytes # 0.3 L (1.0-4.8) k/uL ABG pCO2 (35-45) mmHg ABG pO2 (83-108) mmHg ABG HCO3 (21-25) mmol/L ABG Total CO2 (19-24) mmol/L ABG O2 Saturation (94-97) % Sodium 130 L (137-145) mmol/L Carbon Dioxide (22-30) mmol/L Creatinine (0.52-1.04) mg/dL Glucose (74-99) mg/dL POC Glucose (mg/dL) 140 H (75-99) mg/dL 03/17/21 Range/Units 04:46 WBC (3.8-10.6) k/uL RDW (11.5-15.5) % Neutrophils # (1.3-7.7) k/uL Lymphocytes # (1.0-4.8) k/uL ABG pCO2 (35-45) mmHg ABG pO2 (83-108) mmHg ABG HCO3 (21-25) mmol/L ABG Total CO2 (19-24) mmol/L ABG O2 Saturation (94-97) % Sodium 132 L (137-145) mmol/L Carbon Dioxide 32 H (22-30) mmol/L Creatinine 0.42 L (0.52-1.04) mg/dL Glucose 137 H (74-99) mg/dL POC Glucose (mg/dL) (75-99) mg/dL Microbiology - Last 24 Hours (Table) 03/14/21 00:10 Blood Culture - Preliminary Blood No Growth after 48 hours 03/14/21 14:00 Anaerobic Culture - Preliminary Pleural Fluid 03/14/21 14:00 Gram Stain - Preliminary Pleural Fluid Body Fluid Culture - Preliminary 03/16/21 10:15 Fungal Culture - Preliminary Bronchial Washings - Right 03/16/21 10:15 Bronchial Washings Culture - Preliminary Bronchial Washings - Right 03/16/21 10:15 Acid Fast Bacilli Culture - Preliminary Bronchial Washings - Right 03/13/21 13:38 Blood Culture - Preliminary Blood No Growth after 72 hours 03/13/21 13:38 Blood Culture - Preliminary Blood No Growth after 72 hours 03/14/21 23:05 Gram Stain - Preliminary Sputum Sputum Culture - Preliminary Martha albicans Assessment and Plan Assessment: This is a 65-year-old female with no known past medical history that does not usually follow-up with any doctors presented to the emergency room with worsening shortness of breath and lower extremity edema. Patient has extensive workup in the ER with computed tomography scan of the chest showing bilateral lung consolidation/masses and bilateral pleural effusion. Computed tomography scan of the abdomen showing liver masses suspicious for metastatic disease with sclerotic metastasis into the sacrum and right ilium. Patient will be admitted to the hospital for further management of her medical problems noted below. 1. Metastatic cancer most likely primary lung status post bronchoscopy with evidence of right upper lobe endobronchial tumor obstructing the right upper lobe bronchus status post BAL. Status post diagnostic right-sided thoracentesis 2. Acute hypercapnic respiratory failure requiring sedation and mechanical int ubation on 03/14 successfully extubated on 03/16 3. Acute toxo metabolic encephalopathy secondary to above 4. 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 Sodium level on presentation 116. Nephrology consulted and following closely Started on gentle IV fluid hydration. s/p Samsca x1. Avoid overcorrection 5. Bilateral lower extremity edema, ultrasound ordered negative for acute DVT 6. Acute hypoxic respiratory failure secondary to above 7. Mild to moderate malnutrition with low BMI, probably secondary to underlying malignancy. dietitian will be consulted when patient's clinical status allowed to do so 8. CODE STATUS, patient is full code. Discussed in details with her on presentation in the emergency room Continue ICU care and supportive care. Awaiting pathology report.
--- NOTE | 2021-03-17 11:37 | P.PN ---
Subjective Progress Note Date: 03/17/21 Principal diagnosis: lung, liver and bone lesions Pt is up in chair when seen, she is slow responding to questions, she seemed surprised when it was reviewed with her that pathology results are pending, concerns for malignancy despite this being discussed from the initial CT fin dingstefania, hence the work up. She denied pain Objective - Vital Signs Vital signs: Vital Signs Temp 97.8 F 03/17/21 08:00 Pulse 83 03/17/21 10:00 Resp 24 03/17/21 10:00 BP 118/72 03/17/21 10:00 Pulse Ox 93 L 03/17/21 09:00 Intake & Output 03/16/21 03/17/21 03/17/21 18:59 06:59 18:59 Intake Total 1076 900 475 Output Total 1305 830 160 Balance -229 70 315 Intake: IV 950 900 275 Dextrose 5% in Water 1, 675 000 ml @ 75 mls/hr IV . [id number] [facility] Rx#:[id number] Sodium Chloride 0.9% 1, 225 900 225 000 ml @ 75 mls/hr IV . [id number] [facility] Rx#:[id number] cefTRIAXone 1 gm In 50 50 Sodium Chloride 0.9% 50 ml @ 100 mls/hr IVPB Q24HR [facility] Rx#:[id number] Oral 200 Tube Feeding 96 Other 30 Output: Urine 1305 830 160 Other: Voiding Method Indwelling Catheter Indwelling Catheter Indwelling Catheter - Constitutional General appearance: Present: cooperative, no acute distress, thin - EENT Eyes: Present: anicteric sclerae, EOMI ENT: Present: hearing grossly normal - Respiratory Respiratory: right: diminished, left: CTA - Cardiovascular Rhythm: regular Heart sounds: normal: S1, S2 Abnormal Heart Sounds: Absent: systolic murmur, diastolic murmur, rub, S3 Gallop, S4 Gallop, click, other - Peripheral edema leg Peripheral Edema: bilateral: None - Gastrointestinal General gastrointestinal: Present: normal bowel sounds, soft - Musculoskeletal Musculoskeletal: Present: generalized weakness - Psychiatric Psychiatric Comment(s): Lethargic, slow to respond, not as alert as when previously seen, calm - Labs CBC & Chem 7: 03/17/21 04:46 03/17/21 04:46 Labs: Abnormal Lab Results - Last 24 Hours (Table) 03/16/21 03/16/21 03/16/21 Range/Units 08:38 11:58 17:24 WBC (3.8-10.6) k/uL RDW (11.5-15.5) % Neutrophils # (1.3-7.7) k/uL Lymphocytes # (1.0-4.8) k/uL ABG pCO2 51 H (35-45) mmHg ABG pO2 113 H (83-108) mmHg ABG HCO3 35 H (21-25) mmol/L ABG Total CO2 36 H (19-24) mmol/L ABG O2 Saturation 98.4 H (94-97) % Sodium (137-145) mmol/L Carbon Dioxide (22-30) mmol/L Creatinine (0.52-1.04) mg/dL Glucose (74-99) mg/dL POC Glucose (mg/dL) 162 H 162 H (75-99) mg/dL 03/16/21 03/16/21 03/17/21 Range/Units 17:39 20:40 04:46 WBC 20.1 H (3.8-10.6) k/uL RDW 11.4 L (11.5-15.5) % Neutrophils # 18.9 H (1.3-7.7) k/uL Lymphocytes # 0.3 L (1.0-4.8) k/uL ABG pCO2 (35-45) mmHg ABG pO2 (83-108) mmHg ABG HCO3 (21-25) mmol/L ABG Total CO2 (19-24) mmol/L ABG O2 Saturation (94-97) % Sodium 130 L (137-145) mmol/L Carbon Dioxide (22-30) mmol/L Creatinine (0.52-1.04) mg/dL Glucose (74-99) mg/dL POC Glucose (mg/dL) 140 H (75-99) mg/dL 03/17/21 Range/Units 04:46 WBC (3.8-10.6) k/uL RDW (11.5-15.5) % Neutrophils # (1.3-7.7) k/uL Lymphocytes # (1.0-4.8) k/uL ABG pCO2 (35-45) mmHg ABG pO2 (83-108) mmHg ABG HCO3 (21-25) mmol/L ABG Total CO2 (19-24) mmol/L ABG O2 Saturation (94-97) % Sodium 132 L (137-145) mmol/L Carbon Dioxide 32 H (22-30) mmol/L Creatinine 0.42 L (0.52-1.04) mg/dL Glucose 137 H (74-99) mg/dL POC Glucose (mg/dL) (75-99) mg/dL Microbiology - Last 24 Hours (Table) 03/14/21 00:10 Blood Culture - Preliminary Blood No Growth after 48 hours 03/14/21 14:00 Anaerobic Culture - Preliminary Pleural Fluid 03/14/21 14:00 Gram Stain - Preliminary Pleural Fluid Body Fluid Culture - Preliminary 03/16/21 10:15 Fungal Culture - Preliminary Bronchial Washings - Right 03/16/21 10:15 Bronchial Washings Culture - Preliminary Bronchial Washings - Right 03/16/21 10:15 Acid Fast Bacilli Culture - Preliminary Bronchial Washings - Right 03/13/21 13:38 Blood Culture - Preliminary Blood No Growth after 72 hours 03/13/21 13:38 Blood Culture - Preliminary Blood No Growth after 72 hours 03/14/21 23:05 Gram Stain - Preliminary Sputum Sputum Culture - Preliminary Martha albicans - Imaging and Cardiology MRI - head: report reviewed Assessment and Plan (1) Hyponatremia Narrative/Plan: Suspect 2/2 SIDAH of malignancy. Na+ improved, pt will likely have a lower baseline Current Visit: Yes Status: Acute Priority: High Code(s): E87.1 - HYPO- OSMOLALITY AND HYPONATREMIA SNOMED Code(s): 29748086 (2) Lung mass Current Visit: Yes Status: Acute Priority: High Code(s): R91.8 - OTHER NONSPECIFIC ABNORMAL FINDING OF LUNG FIELD SNOMED Code(s): 780006207 (3) Pleural effusion Current Visit: Yes Status: Acute Priority: High Code(s): J90 - PLEURAL EFFUSION, NOT ELSEWHERE CLASSIFIED SNOMED Code(s): 98987499 Plan: Clinical picture and imaging highly suggestive of a lung primary malignancy. Thoracentesis done for palliation, sent for cytology. S/P bronch and tissue biopsy. Tissue request for NGS testing will be sent. Plan for liquid biopsy in ofc. F/U Dr. Moon scheduled, in chart. MRI brain neg for malignancy on report. Dr. Short discussed this with pt. He reviewed her hospitalization and pt seemed surprised when cancer was mentioned. Her case and findings have been discussed with ehr and family as highly suspicious for cancer, pending biopsy to confirm malignancy. Will see how pt mental status changes over the next 24 hours-there is change from baseline- lethargic, mild confusion, slow to respond-may consider LP if symptoms persist. NM bone scan pending to complete staging.
--- NOTE | 2021-03-17 11:39 | PN ---
PROGRESS NOTE Patient is seen for followup for hyponatremia. Patient's serum sodium is up to 132. It had gone up to 130 from 118 and patient was started on D5W, which was discontinued last night when sodium had gone down to 125. She is currently doing fairly well. Patient is sitting on a bedside chair. She is quite weak and is trying to increase her oral intake, currently eating clear liquids. On examination, blood pressure 118/72, heart rate 83 per minute. She is afebrile. EXAMINATION OF THE HEART: S1 and S2. EXAMINATION OF LUNGS: Bilateral breath sounds are heard. Abdomen is soft. Examination of lower extremities trace edema bilaterally. Labs show sodium 132, potassium 4.1, BUN 13, serum creatinine 0.42, hemoglobin 14.2 g/dL. ASSESSMENT: 1. Hyponatremia, currently improved and off of D5W which was started secondary to rapid increase in the serum sodium after tolvaptan. 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 Patient is maintained on saline. Her sodium has not worsened yet. Volume is corrected at this point. Repeat a sodium later on today to make sure the sodium is not decreasing with the saline administration. 2. Liver mass and lung mass with right pleural effusion with high suspicion for underlying malignancy. Pathology is still pending. Patient had BAL. 3. Acute hypercapnic respiratory failure requiring mechanical ventilation, now extubated. 4. Lower extremity edema; seems to have improved now. Patient had low albumin levels. No evidence of DVT. 5. Generalized debility. PLAN: Encourage increased oral intake. Repeat sodium at about 2 p.m. today. May continue with the normal saline for now. MMODL / IJN: [id number] /
--- NOTE | 2021-03-17 12:59 | P.PN ---
Subjective Progress Note Date: 03/17/21 Principal diagnosis: Metastatic lung cancer On 03/14/2021 patient seen in follow-up in the emergency department where she is awaiting a bed on selective care unit, she is currently on 15 L of oxygen pulse ox is 98%, when the patient gets up out of bed her pulse ox drops 65, she easily desaturates, she does recover with rest. Is awake and alert, currently seems to be in no acute distress, she is in sinus mechanism with a rate of 86, blood pressure stable, blood pressure is 110/79, afebrile. Patient continues on azithromycin and Rocephin for empiric antibiotic coverage, she is on 0.9 normal saline at a rate of 75 ML per hour, she is on GI and DVT prophylaxis. Labs have been reviewed, her sodium is 119, white blood cell count is 13.7, hemoglobin is 15.9, BUN is 12 and creatinine 0.62. Echocardiogram has been completed showing EF of 55-60%, mild pulmonary hypertension with right-sided pressure of 43.5 mmHg. Lower extremity Dopplers showed possibility of a chronic DVTs. Ultrasound the chest has been completed showing a right pleural effusion pocket of 10.6 cm. patient denies any chest pain, no hemoptysis. The findings of the CT chest and chest x-ray have been reviewed and there is a high possibility of metastatic lung carcinoma Patient was reevaluated today on 03/15/2021, patient developed acute hypercapnic rest or with failure yesterday, may have been related to a dose of Dilaudid that she was given for pain control, patient was placed on BiPAP by the admitting physician, however continued to show significant hypercapnia with low pH, her pO2 on BiPAP at 40% was 108, and her pCO2 remained 93 with a pH of 7.20. Patient was seen by the rapid response team, intubated since her pCO2 remained high and the patient became up on that, repeat ABG post intubation showed a pO2 of 365 pCO2 of 63 pH of 7.36. Patient remained on mechanical ventilation overni ght, and today she is down to 40% FiO2 with ABG showing a pO2 of 83 pCO2 55 pH of 7.41. Obviously based on this ABG, the patient does have chronic hypercapnia and this time she had acute on chronic hypercapnic respiratory failure requiring intubation and mechanical ventilation. Sodium today is 118 potassium is 4.7 chloride is 86. BUN is 14 and creatinine 0.51 patient remains intubated and mechanically ventilated this morning, and considering the patient is intubated, discussed her condition with her daughter over the phone, and explained to the daughter that this is the best time to go ahead and proceed with bronchoscopy and endobronchial biopsy of right upper lobe endobronchial tumor. Daughter agreed with that decision, and consent was obtained over the phone. I went ahead and performed bronchoscopy and multiple endobronchial biopsies of large endobronchial tumor completely occluding the right upper lobe bronchus. Brushings of the tumor were done, and washings were also done. These were all sent to pathology. In the meantime the patient remains on assist control rate of 16 tidal volume is 350 FiO2 50%, and PEEP of 5. Reevaluated today on 03/16/2021, patient remains intubated and mechanically ventilated. She is presently on assist control rate of 16 tidal volume of 350 FiO2 50% and PEEP of 5. EG showed a pO2 of 113 pCO2 of 51 pH of 7.44. Sodium today is 125, the rest of the labs are basically unremarkable. Chest x-ray continues to show right upper lobe consolidation, and opacification, there is also a right-sided pleural effusion and right lower lobe atelectasis. Left side showed multifocal opacities or infiltrates. Patient was on propofol, and I have recommended stopping the propofol, considering Precedex, however will start the weaning process after propofol was discontinued. As the patient was more awake, I was able to transition the patient to pressure support of 8 and CPAP, and she seemed to do quite well with a pressure support 8 and CPAP. And I proceeded to extubating the patient to a nasal cannula with BiPAP at bedside if necessary. Patient was extubated uneventfully, and she will be maintained on her usual bronchodilators, we will continue to monitor the patient in the ICU today. Reevaluated today on 03/17/2021, patient remains in the ICU, she was extubated yesterday, and she is now on few liters nasal cannula. Asymptomatic, patient is doing great. Remains on antibiotics, remains on bronchodilators, and she is also on steroids. Cytology from the pleural effusion and pathology from the bronchoscopy are still pending. Today I am planning to transfer the patient out of the ICU to a regular medical floor, patient is a bit anxious, and I would recommend a small dose of Xanax as needed no more than 3 times a day. Her sodium is back to normal level CXXXII today, electrolytes are normal, CBC showed leukocytosis with WBC of 20.1. Hemoglobin is 14.2. Asked x-ray is basically about the same, continues to have significant airspace disease in the right lung, and scattered opacities in the left lung. Objective - Vital Signs Vital signs: Vital Signs Temp 97.8 F 03/17/21 08:00 Pulse 83 03/17/21 10:00 Resp 24 03/17/21 10:00 BP 118/72 03/17/21 10:00 Pulse Ox 93 L 03/17/21 09:00 Intake & Output 03/16/21 03/17/21 03/17/21 18:59 06:59 18:59 Intake Total 1076 900 475 Output Total 1305 830 160 Balance -229 70 315 Intake: IV 950 900 275 Dextrose 5% in Water 1, 675 000 ml @ 75 mls/hr IV . [id number] [facility] Rx#:[id number] Sodium Chloride 0.9% 1, 225 900 225 000 ml @ 75 mls/hr IV . [id number] [facility] Rx#:[id number] cefTRIAXone 1 gm In 50 50 Sodium Chloride 0.9% 50 ml @ 100 mls/hr IVPB Q24HR [facility] Rx#:[id number] Oral 200 Tube Feeding 96 Other 30 Output: Urine 1305 830 160 Other: Voiding Method Indwelling Catheter Indwelling Catheter Indwelling Catheter - Exam Physical Exam: Revealed a 65-year-old female in no distress. On few liters nasal cannula. Head: Atraumatic, normocephalic. HEENT:[Neck is supple.] [No neck masses.] [No thyromegaly.] [No JVD.] Chest: [Diminished breath sounds and crackles at the right base, left side is relatively clear. Cardiac Exam: [Normal S1 and S2, no S3 gallop, no murmur.] Abdomen: [Soft, nontender, no megaly, no rebound, no guarding, normal bowel sounds.] Extremities: [No clubbing, no edema, no cyanosis.] Neurological Exam: [No focal neurologic deficit.] Alert oriented 3. Psychiatric: Slightly anxious, normal affect, normal mental status examination. Skin: No rashes. - Labs CBC & Chem 7: 03/17/21 04:46 03/17/21 04:46 Labs: Abnormal Lab Results - Last 24 Hours (Table) 03/16/21 03/16/21 03/16/21 Range/Units 08:38 17:24 17:39 WBC (3.8-10.6) k/uL RDW (11.5-15.5) % Neutrophils # (1.3-7.7) k/uL Lymphocytes # (1.0-4.8) k/uL ABG pCO2 51 H (35-45) mmHg ABG pO2 113 H (83-108) mmHg ABG HCO3 35 H (21-25) mmol/L ABG Total CO2 36 H (19-24) mmol/L ABG O2 Saturation 98.4 H (94-97) % Sodium 130 L (137-145) mmol/L Carbon Dioxide (22-30) mmol/L Creatinine (0.52-1.04) mg/dL Glucose (74-99) mg/dL POC Glucose (mg/dL) 162 H (75-99) mg/dL 03/16/21 03/17/21 03/17/21 Range/Units 20:40 04:46 04:46 WBC 20.1 H (3.8-10.6) k/uL RDW 11.4 L (11.5-15.5) % Neutrophils # 18.9 H (1.3-7.7) k/uL Lymphocytes # 0.3 L (1.0-4.8) k/uL ABG pCO2 (35-45) mmHg ABG pO2 (83-108) mmHg ABG HCO3 (21-25) mmol/L ABG Total CO2 (19-24) mmol/L ABG O2 Saturation (94-97) % Sodium 132 L (137-145) mmol/L Carbon Dioxide 32 H (22-30) mmol/L Creatinine 0.42 L (0.52-1.04) mg/dL Glucose 137 H (74-99) mg/dL POC Glucose (mg/dL) 140 H (75-99) mg/dL Microbiology - Last 24 Hours (Table) 03/14/21 00:10 Blood Culture - Preliminary Blood No Growth after 48 hours 03/14/21 14:00 Anaerobic Culture - Preliminary Pleural Fluid 03/14/21 14:00 Gram Stain - Preliminary Pleural Fluid Body Fluid Culture - Preliminary 03/16/21 10:15 Fungal Culture - Preliminary Bronchial Washings - Right 03/16/21 10:15 Bronchial Washings Culture - Preliminary Bronchial Washings - Right 03/16/21 10:15 Acid Fast Bacilli Culture - Preliminary Bronchial Washings - Right 03/13/21 13:38 Blood Culture - Preliminary Blood No Growth after 72 hours 03/13/21 13:38 Blood Culture - Preliminary Blood No Growth after 72 hours 03/14/21 23:05 Gram Stain - Preliminary Sputum Sputum Culture - Preliminary Martha albicans Assessment and Plan Assessment: Impression: Acute on chronic hypercapnic respiratory failure, likely induced by worsening bronchospasm and possible underlying COPD although the patient never smoked. This required intubation and mechanical ventilation, patient failed to respond to BiPAP. Her hypercapnia may have been exacerbated by narcotics given for pain control. Patient was extubated on 03/16/21 tolerated the extubation well so far. 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 Sodium is much better today. Suspect metastatic squamous cell lung cancer Cachexia and malnourishment with BMI of 21.0. Considered severe. Abnormal liver enzymes most likely secondary to hepatic metastasis. Status post bronchoscopy with multiple endobronchial biopsies brushings and washings of right upper lobe endobronchial tumor obstructing the right upper lobe Bronchus. This was done on 03/15/2021. Status post thoracentesis few days ago. Cytology is pending. Recommendation: Patient was extubated on 03/16/2021, tolerated the extubation well. Continue bronchodilators. Continue antibiotics. Continue steroids. Continue GI and DVT prophylaxis. Overall prognosis is extremely poor and guarded Awaiting the pathology from bronchoscopy, also awaiting the cytology from pleu ral effusion both are pending. Will continue to follow Time with Patient: Less than 30
[2021-03-17] MEDS: ONDANSETRON 4 MG/2 ML VIAL IVP PRN (14:37)
[2021-03-17 17:43] LABS: Glucose,Whole Blood 160 mg/dL (75-99)
--- NOTE | 2021-03-17 18:47 | NM ---
EXAMINATION TYPE: NM bone scan whole body DATE OF EXAM: 03/17/2021 COMPARISON: CT abdomen pelvis and CTA chest 03/13/2021 HISTORY: Lung and liver lesions Delayed whole-body scanning was performed following the injection of 19.8 mCi Tc 99m MDP. Images acq uired 4.5 hours post injection. FINDINGS: There are multiple areas of abnormal radiotracer uptake suspicious for metastatic disease, involving the thoracic and lumbar spine, sacrum, bilateral ribs (most notably at posterior left ribs 2 and 7 an d anterior ribs likely 7 bilaterally), and bilateral iliac bones (right greater than left). Symmetric degenerative uptake of the bilateral shoulders, knees, feet and ankles. There is also scattered dege nerative uptake of the spine. IMPRESSION: Multiple areas of abnormal uptake most likely represent metastatic disease as above.
[2021-03-17 20:21] LABS: Glucose,Whole Blood 96 mg/dL (75-99)
[2021-03-17] MEDS: LIDOCAINE 5% PATCH TOPICAL SCH (20:23)
[2021-03-18] MEDS ORDERED: ZOLPIDEM 10 MG TAB PO STA (00:33)
[2021-03-18] MEDS: SODIUM CHLORIDE 0.9% 1,000 ML IV SCH (05:48)
--- NOTE | 2021-03-18 06:55 | XR ---
EXAMINATION TYPE: XR chest 1V portable DATE OF EXAM: 03/18/2021 CLINICAL HISTORY: Difficulty breathing progress study. TECHNIQUE: Single AP portable semiupright view of the chest is obtained. COMPARISON: Chest x-ray from one day earlier and older studies. Chest CT 5 days ago. FINDINGS: Persistent completely opacified right lung apex likely corresponding to obstructing suprahilar mass w ith postobstructive atelectasis as there is right upper lung volume loss redemonstrated. Persistent s mall to moderate-sized right pleural effusion with associated right lung edema and/or infiltrates. Re ticulonodular opacities throughout the left lung becoming more prominent. Cardiac silhouette size is stable and within normal limits. Underlying scoliotic curvature redemonstrated. IMPRESSION: Stable small to moderate size right pleural effusion. Stable right upper lung masslike consolidation likely reflecting underlying mass or neoplasm and peripheral postobstructive atelectasis. Right-sided volume loss redemonstrated. Bilateral right greater than left acute reticulonodular infiltrates and/ or edema are present. Left lung findings becoming worse from one day earlier otherwise no significant interval change.
--- NOTE | 2021-03-18 10:11 | P.PN ---
Subjective Patient was seen and evaluated by me this warning and she was complaining of mild headache. No acute events overnight reported to me by her nursing staff Objective - Vital Signs Vital signs: Vital Signs Temp 98.4 F 03/18/21 01:39 Pulse 98 03/18/21 01:39 Resp 20 03/18/21 01:39 BP 122/76 03/18/21 01:39 Pulse Ox 91 L 03/18/21 01:39 Intake & Output 03/17/21 03/18/21 03/18/21 18:59 06:59 18:59 Intake Total 550 1200 Output Total 385 400 Balance 165 800 Weight 54.6 kg Intake: IV 350 1200 Sodium Chloride 0.9% 1, 300 1200 000 ml @ 75 mls/hr IV . [id number] [facility] Rx#:[id number] cefTRIAXone 1 gm In 50 Sodium Chloride 0.9% 50 ml @ 100 mls/hr IVPB Q24HR [facility] Rx#:[id number] Oral 200 Output: Urine 385 400 Other: Voiding Method Indwelling Catheter Indwelling Catheter - Exam General: The patient is awake and alert, in no distress. Patient is cachectic and appeared chronically ill Eye: there is normal conjunctiva bilaterally. Neck: The neck is supple, there is no JVD. Cardiovascular: Normal S1-S2, no S3-S4, no murmurs. Respiratory: Lungs clear to auscultation bilaterally Gastrointestinal: Abdomen is soft, nontender Musculoskeletal: There is no pedal edema. Neurological:. Speech is normal. Skin: Skin is warm and dry - Labs CBC & Chem 7: 03/17/21 04:46 03/17/21 14:05 Labs: Abnormal Lab Results - Last 24 Hours (Table) 03/17/21 03/17/21 Range/Units 14:05 17:41 Sodium 133 L (137-145) mmol/L POC Glucose (mg/dL) 160 H (75-99) mg/dL Microbiology - Last 24 Hours (Table) 03/14/21 00:10 Blood Culture - Preliminary Blood No Growth after 72 hours 03/16/21 10:15 Acid Fast Bacilli Smear - Final Bronchial Washings - Right Acid Fast Bacilli Culture - Preliminary 03/14/21 14:00 Gram Stain - Preliminary Pleural Fluid Body Fluid Culture - Preliminary 03/13/21 13:38 Blood Culture - Preliminary Blood No Growth after 96 hours 03/13/21 13:38 Blood Culture - Preliminary Blood No Growth after 96 hours 03/14/21 23:05 Gram Stain - Final Sputum Sputum Culture - Final Martha albicans Assessment and Plan Assessment: This is a 65-year-old female with no known past medical history that does not usually follow-up with any doctors presented to the emergency room with worsening shortness of breath and lower extremity edema. Patient has extensive workup in the ER with computed tomography scan of the chest showing bilateral lung consolidation/masses and bilateral pleural effusion. Computed tomography scan of the abdomen showing liver masses suspicious for metastatic disease with sclerotic metastasis into the sacrum and right ilium. Patient will be admitted to the hospital for further management of her medical problems noted below. 1. Metastatic adenocarcinoma of the lung: With diffuse bone metastasis. MRI with no brain metastasis. Patient was seen by oncology. Currently discussing immunotherapy as an option for palliative treatment 2. Acute hypercapnic respiratory failure requiring sedation and mechanical intubation on 03/14 successfully extubated on 03/16 3. Acute toxo metabolic encephalopathy secondary to above, now improved 4. 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 Sodium level on presentation 116. Nephrology consulted and following closely Started on gentle IV fluid hydration. s/p Samsca x1. Avoid overcorrection 5. Bilateral lower extremity edema, ultrasound ordered negative for acute DVT 6. Acute hypoxic respiratory failure secondary to above 7. Moderate malnutrition with BMI of 20, probably secondary to underlying malignancy. dietitian consulted 8. CODE STATUS, patient is full code. Discussed in details with her on presentation in the emergency room Continue ICU care and supportive care. PT/OT evaluation Discharge planning
[2021-03-18] MEDS: ONDANSETRON 4 MG/2 ML VIAL IVP PRN ×2 (10:49→20:27)
[2021-03-18] MEDS: ENOXAPARIN 40 MG/0.4 ML SYRINGE SQ SCH (10:49)
[2021-03-18] MEDS: methylPREDNISolone SOD SUCCI 40 MG/ML 1 ML VIAL IV SCH ×2 (10:49→20:28)
[2021-03-18] MEDS: ALPRAZolam 0.25 MG TAB PO PRN ×3 (10:49→23:54)
--- NOTE | 2021-03-18 11:55 | PN ---
PROGRESS NOTE Patient is seen for followup for hyponatremia. This has improved significantly. Etiology is underlying SIADH. Patient received a dose of tolvaptan and had responded very well. She had corrected rapidly and was maintained on D5W for a short period of time. This is now discontinued and currently patient is not on any IV fluids. Her sodium was 133 yesterday. We do not have labs from today. Patient has underlying liver mass and lung masses suggestive of significant malignancy with no previous diagnosis of such. Pathology is still pending from BAL. Patient also had thoracenteses for right pleural effusion, and the pathology on that is pending as well. On examination today, blood pressure 122/76, heart rate 98 per minute. She is afebrile. EXAMINATION OF THE HEART: S1 and S2. EXAMINATION OF LUNGS: Decreased breath sounds at the bases. Abdomen is soft, non-tender. Examination of lower extremities shows no evidence of edema. Labs show sodium 133 yesterday. No labs available from today. Serum creatinine 0.42 on 03/17/2021. ASSESSMENT: 1. Hyponatremia secondary to SIADH, improved with tolvaptan with rapid correction, status post D5W for a short period of time. Currently not on any IV fluids. Patient is trying to increase oral intake. Check labs in a.m. 2. Liver mass with lung masses and pleural effusions suspicious for underlying malignancy. Pathology results currently pending. 3. Acute hypercapnic respiratory failure, status post extubation. 4. Generalized debility. PLAN: Repeat labs in a.m. Encourage oral intake. MMODL / IJN: [id number] /
--- NOTE | 2021-03-18 12:14 | P.PN ---
Subjective Progress Note Date: 03/18/21 On 03/14/2021 patient seen in follow-up in the emergency department where she is awaiting a bed on selective care unit, she is currently on 15 L of oxygen pulse ox is 98%, when the patient gets up out of bed her pulse ox drops 65, she easily desaturates, she does recover with rest. Is awake and alert, currently seems to be in no acute distress, she is in sinus mechanism with a rate of 86, blood pressure stable, blood pressure is 110/79, afebrile. Patient continues on azithromycin and Rocephin for empiric antibiotic coverage, she is on 0.9 normal saline at a rate of 75 ML per hour, she is on GI and DVT prophylaxis. Labs have been reviewed, her sodium is 119, white blood cell count is 13.7, hemoglobin is 15.9, BUN is 12 and creatinine 0.62. Echocardiogram has been completed showing EF of 55-60%, mild pulmonary hypertension with right-sided pressure of 43.5 mmHg. Lower extremity Dopplers showed possibility of a chronic DVTs. Ultrasound the chest has been completed showing a right pleural effusion pocket of 10.6 cm. patient denies any chest pain, no hemoptysis. The findings of the CT chest and chest x-ray have been reviewed and there is a high possibility of metastatic lung carcinoma Patient was reevaluated today on 03/15/2021, patient developed acute hypercapnic rest or with failure yesterday, may have been related to a dose of Dilaudid that she was given for pain control, patient was placed on BiPAP by the admitting physician, however continued to show significant hypercapnia with low pH, her pO2 on BiPAP at 40% was 108, and her pCO2 remained 93 with a pH of 7.20. Patient was seen by the rapid response team, intubated since her pCO2 remained high and the patient became up on that, repeat ABG post intubation showed a pO2 of 365 pCO2 of 63 pH of 7.36. Patient remained on mechanical ventilation overnight, and today she is down to 40% FiO2 with ABG showing a pO2 of 83 pCO2 55 pH of 7.41. Obviously based on this ABG, the patient does have chronic hypercapnia and this time she had acute on chronic hypercapnic respiratory failure requiring intubation and mechanical ventilation. Sodium today is 118 potassium is 4.7 chloride is 86. BUN is 14 and creatinine 0.51 patient remains intubated and mechanically ventilated this morning, and considering the patient is intubated, discussed her condition with her daughter over the phone, and explained to the daughter that this is the best time to go ahead and proceed with bronchoscopy and endobronchial biopsy of right upper lobe endobronchial tumor. Daughter agreed with that decision, and consent was obtained over the p van. I went ahead and performed bronchoscopy and multiple endobronchial biopsies of large endobronchial tumor completely occluding the right upper lobe bronchus. Brushings of the tumor were done, and washings were also done. These were all sent to pathology. In the meantime the patient remains on assist control rate of 16 tidal volume is 350 FiO2 50%, and PEEP of 5. Reevaluated today on 03/16/2021, patient remains intubated and mechanically ventilated. She is presently on assist control rate of 16 tidal volume of 350 FiO2 50% and PEEP of 5. EG showed a pO2 of 113 pCO2 of 51 pH of 7.44. Sodium today is 125, the rest of the labs are basically unremarkable. Chest x-ray continues to show right upper lobe consolidation, and opacification, there is also a right-sided pleural effusion and right lower lobe atelectasis. Left side showed multifocal opacities or infiltrates. Patient was on propofol, and I have recommended stopping the propofol, considering Precedex, however will start the weaning process after propofol was discontinued. As the patient was more awake, I was able to transition the patient to pressure support of 8 and CPAP, and she seemed to do quite well with a pressure support 8 and CPAP. And I proceeded to extubating the patient to a nasal cannula with BiPAP at bedside if necessary. Patient was extubated uneventfully, and she will be maintained on her usual bronchodilators, we will continue to monitor the patient in the ICU today. Reevaluated today on 03/17/2021, patient remains in the ICU, she was extubated yesterday, and she is now on few liters nasal cannula. Asymptomatic, patient is doing great. Remains on antibiotics, remains on bronchodilators, and she is also on steroids. Cytology from the pleural effusion and pathology from the bronchoscopy are still pending. Today I am planning to transfer the patient out of the ICU to a regular medical floor, patient is a bit anxious, and I would recommend a small dose of Xanax as needed no more than 3 times a day. Her sodium is back to normal level CXXXII today, electrolytes are normal, CBC showed leukocytosis with WBC of 20.1. Hemoglobin is 14.2. Asked x-ray is basically about the same, continues to have significant airspace disease in the right lung, and scattered opacities in the left lung. The patient is seen today 03/18/2021 in follow-up in the intensive care unit. She is currently sitting up in bed. Awake and alert in no acute distress. She is maintaining O2 saturations in the 90s on 3 L/m per nasal cannula. Chest x- ray continues to show stable small to moderate right-sided pleural effusion. Stable right upper lung masslike consolidation. Right-sided volume loss rede monstrated. Bilateral right greater than left particular nodular infiltrates/edema. Pathology from transbronchial biopsies on 03/15/2021 were positive for non-small cell cancer/adenocarcinoma. 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 No new labs today. She remains on IV Solu-Medrol. Lovenox for DVT prophylaxis. Objective - Vital Signs Vital signs: Vital Signs Temp 98.4 F 03/18/21 01:39 Pulse 98 03/18/21 01:39 Resp 20 03/18/21 01:39 BP 122/76 03/18/21 01:39 Pulse Ox 91 L 03/18/21 01:39 Intake & Output 03/17/21 03/18/21 03/18/21 18:59 06:59 18:59 Intake Total 550 1200 Output Total 385 400 Balance 165 800 Weight 54.6 kg Intake: IV 350 1200 Sodium Chloride 0.9% 1, 300 1200 000 ml @ 75 mls/hr IV . [id number] [facility] Rx#:[id number] cefTRIAXone 1 gm In 50 Sodium Chloride 0.9% 50 ml @ 100 mls/hr IVPB Q24HR [facility] Rx#:[id number] Oral 200 Output: Urine 385 400 Other: Voiding Method Indwelling Catheter Indwelling Catheter - Exam GENERAL EXAM: Alert, frail, cachectic 65-year-old female patient on 3 L nasal c annula. Comfortable in no apparent distress. HEAD: Normocephalic. EYES: Normal reaction of pupils, equal size. NOSE: Clear with pink turbinates. THROAT: No erythema or exudates. NECK: No masses, no JVD. CHEST: No chest wall deformity. LUNGS: Equal air entry with bilateral scattered rhonchi, crackles in the bases.. CVS: S1 and S2 normal with no audible murmur, regular rhythm. ABDOMEN: No hepatosplenomegaly, normal bowel sounds, no guarding or rigidity. SPINE: No scoliosis or deformity SKIN: No rashes CENTRAL NERVOUS SYSTEM: No focal deficits, tone is normal in all 4 extremities. EXTREMITIES: There is no peripheral edema. No clubbing, no cyanosis. Peripheral pulses are intact. - Labs CBC & Chem 7: 03/17/21 04:46 03/17/21 14:05 Labs: Abnormal Lab Results - Last 24 Hours (Table) 03/17/21 03/17/21 Range/Units 14:05 17:41 Sodium 133 L (137-145) mmol/L POC Glucose (mg/dL) 160 H (75-99) mg/dL Microbiology - Last 24 Hours (Table) 03/14/21 00:10 Blood Culture - Preliminary Blood No Growth after 72 hours 03/16/21 10:15 Acid Fast Bacilli Smear - Final Bronchial Washings - Right Acid Fast Bacilli Culture - Preliminary 03/14/21 14:00 Gram Stain - Preliminary Pleural Fluid Body Fluid Culture - Preliminary 03/13/21 13:38 Blood Culture - Preliminary Blood No Growth after 96 hours 03/13/21 13:38 Blood Culture - Preliminary Blood No Growth after 96 hours 03/14/21 23:05 Gram Stain - Final Sputum Sputum Culture - Final Martha albicans Assessment and Plan Assessment: 1 Acute on chronic hypercapnic respiratory failure likely induced by worsening bronchospasm and underlying COPD. Required intubation and subsequent extubation on 03/16/2021. The patient is also found to have metastatic non-small cell lung cancer/adenocarcinoma. 2 Metastatic non-small cell lung cancer including liver and bone involvement. 3 Hypochloremic hyponatremia, improved 4 Protein calorie malnutrition with a BMI of 20 5 Lifelong nonsmoker Plan: The patient was seen and evaluated by Dr. Donnelly He did discuss with the patient her diagnosis of metastatic lung cancer Medical oncology is involved in recommendations for treatment will be made Her overall prognosis remains quite guarded and poor Transfer out of the ICU to the oncology floor once a bed is available Titrate down the FiO2 as tolerated We will continue to follow I, the cosigning physician, performed a history & physical examination of the patient. Lungs sounds bilateral scattered rhonchi, crackles in the bases. Ma intaining good O2 saturations in the 90s on 3 L/m per nasal cannula. I discussed the assessment and plan of care with my nurse practitioner, Toña Mitchell. I attest to the above note as dictated by her.
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
[2021-03-18] MEDS ORDERED: KETOROLAC 30 MG/ML 1 ML VIAL IVP STA (14:45)
[2021-03-18 16:27] LABS: Basophils % (A) 0 %; Eosinophils # (A) 0.1 k/uL (0-0.7); Eosinophils % (A) 1 %; HCT 52.4 % (34.0-46.0); HGB 16.8 gm/dL (11.4-16.0); Lymphocytes # (A) 0.2 k/uL (1.0-4.8); Lymphocytes % (A) 1 %; MCHC 32.1 g/dL (31.0-37.0); MCV 96.4 fL (80.0-100.0); Mean Platelet Volume 6.7; Monocytes # (A) 0.3 k/uL (0-1.0); Monocytes % (A) 2 %; Neutrophils # (A) 16.3 k/uL (1.3-7.7); Neutrophils % (A) 96 %; Platelet Count 320 k/uL (150-450); RBC 5.43 m/uL (3.80-5.40); RDW 11.9 % (11.5-15.5); WBC 17.1 k/uL (3.8-10.6)
[2021-03-18 16:35] LABS: ALT 61 U/L (4-34); AST 59 U/L (14-36); African American GFR (CKD) >90 (>60 ml/min/1.73 sqM); Albumin 3.2 g/dL (3.5-5.0); Alkaline Phosphatase 231 U/L (38-126); Anion Gap 2 mmol/L; Blood Urea Nitrogen 17 mg/dL (7-17); Calcium 9.6 mg/dL (8.4-10.2); Carbon Dioxide 33 mmol/L (22-30); Chloride 96 mmol/L (98-107); Glucose 139 mg/dL (74-99); Non-African American GFR(CKD) >90 (>60 ml/min/1.73 sqM); Potassium 5.1 mmol/L (3.5-5.1); Sodium 131 mmol/L (137-145); Total Bilirubin 0.7 mg/dL (0.2-1.3); Total Protein 5.7 g/dL (6.3-8.2)
--- NOTE | 2021-03-18 19:33 | P.PN ---
Subjective Progress Note Date: 03/18/21 Principal diagnosis: New Adenocarcinoma I have reviewed pathology with daughter and son. Patient is a lifelong non smoker. Will work on increasing performance status and send pathology for NGS in hopes of an actionable mutation Objective - Vital Signs Vital signs: Vital Signs Temp 98.4 F 03/18/21 01:39 Pulse 98 03/18/21 01:39 Resp 20 03/18/21 01:39 BP 122/76 03/18/21 01:39 Pulse Ox 91 L 03/18/21 01:39 Intake & Output 03/17/21 03/18/21 03/18/21 18:59 06:59 18:59 Intake Total 550 1200 Output Total 385 400 Balance 165 800 Weight 54.6 kg Intake: IV 350 1200 Sodium Chloride 0.9% 1, 300 1200 000 ml @ 75 mls/hr IV . [id number] [facility] Rx#:[id number] cefTRIAXone 1 gm In 50 Sodium Chloride 0.9% 50 ml @ 100 mls/hr IVPB Q24HR [facility] Rx#:[id number] Oral 200 Output: Urine 385 400 Other: Voiding Method Indwelling Catheter Indwelling Catheter - Exam - Constitutional General appearance: Present: cooperative, no acute distress, thin - EENT Eyes: Present: anicteric sclerae, EOMI ENT: Present: hearing grossly normal - Respiratory Respiratory: right: diminished, left: CTA - Cardiovascular Rhythm: regular Heart sounds: normal: S1, S2 Abnormal Heart Sounds: Absent: systolic murmur, diastolic murmur, rub, S3 Gallop, S4 Gallop, click, other - Peripheral edema leg Peripheral Edema: bilateral: None - Gastrointestinal General gastrointestinal: Present: normal bowel sounds, soft - Musculoskeletal Musculoskeletal: Present: generalized weakness - Psychiatric Psychiatric Comment(s): Lethargic, slow to respond, not as alert as when previously seen, calm - Labs CBC & Chem 7: 03/18/21 16:09 03/18/21 16:09 Labs: Abnormal Lab Results - Last 24 Hours (Table) 03/17/21 Range/Units 17:41 POC Glucose (mg/dL) 160 H (75-99) mg/dL Microbiology - Last 24 Hours (Table) 03/16/21 10:15 Gram Stain - Final Bronchial Washings - Right Bronchial Washings Culture - Final Martha albicans 03/14/21 00:10 Blood Culture - Preliminary Blood No Growth after 72 hours 03/16/21 10:15 Acid Fast Bacilli Smear - Final Bronchial Washings - Right Acid Fast Bacilli Culture - Preliminary 03/14/21 14:00 Gram Stain - Preliminary Pleural Fluid Body Fluid Culture - Preliminary 03/13/21 13:38 Blood Culture - Preliminary Blood No Growth after 96 hours 03/13/21 13:38 Blood Culture - Preliminary Blood No Growth after 96 hours 03/14/21 23:05 Gram Stain - Final Sputum Sputum Culture - Final Martha albicans Assessment and Plan (1) Lung mass Current Visit: Yes Status: Acute Priority: High Code(s): R91.8 - OTHER NONSPECIFIC ABNORMAL FINDING OF LUNG FIELD SNOMED Code(s): 427628016 Plan: - Imaging and Cardiology MRI - head: report reviewed Assessment and Plan (1) Hyponatremia Narrative/Plan: Suspect 2/2 SIDAH of malignancy. Na+ improved, pt will likely have a lower baseline Current Visit: Yes Status: Acute Priority: High Code(s): E87.1 - HYPO- OSMOLALITY AND HYPONATREMIA SNOMED Code(s): 57736386 (2) Lung mass Current Visit: Yes Status: Acute Priority: High Code(s): R91.8 - OTHER NONSPECIFIC ABNORMAL FINDING OF LUNG FIELD SNOMED Code(s): 920371632 (3) Pleural effusion Current Visit: Yes Status: Acute Priority: High Code(s): J90 - PLEURAL EFFUSION, NOT ELSEWHERE CLASSIFIED SNOMED Code(s): 16360575 Plan: Adenocarcinoma likely lung primary in lifelong non-smoking athlete. Will send pathology for NGS is hopes of actionable mutation. Liquid bx in office.
[2021-03-18] MEDS: ACETAMINOPHEN TAB 325 MG TAB PO PRN (20:27)
[2021-03-18] MEDS: LIDOCAINE 5% PATCH TOPICAL SCH (20:28)
[2021-03-19] MEDS ORDERED: KETOROLAC 30 MG/ML 1 ML VIAL IVP STA (00:34)
[2021-03-19] MEDS: ONDANSETRON 4 MG/2 ML VIAL IVP PRN ×2 (05:35→11:10)
[2021-03-19] MEDS: ACETAMINOPHEN TAB 325 MG TAB PO PRN (08:36)
[2021-03-19] MEDS: ENOXAPARIN 40 MG/0.4 ML SYRINGE SQ SCH (08:37)
[2021-03-19] MEDS ORDERED: CEFDINIR 300 MG CAP PO SCH (09:00)
--- NOTE | 2021-03-19 10:21 | P.PN ---
Subjective patient was seen and evaluated by me this morning. she is still in the ICU as a MedSurg overflow. She is complaining of nonspecific headache and low back pain. No acute events overnight reported to me by nursing staff. Objective - Vital Signs Vital signs: Vital Signs Temp 97.3 F L 03/19/21 08:00 Pulse 94 03/19/21 08:00 Resp 18 03/19/21 08:00 BP 113/70 03/19/21 08:00 Pulse Ox 96 03/19/21 08:00 Intake & Output 03/18/21 03/19/21 03/19/21 18:59 06:59 18:59 Intake Total 200 300 Output Total 640 525 Balance -440 -225 Intake: Oral 200 300 Output: Urine 640 525 - Exam General: The patient is awake and alert, in no distress. Patient is cachectic and appeared chronically ill Eye: there is normal conjunctiva bilaterally. Neck: The neck is supple, there is no JVD. Cardiovascular: Normal S1-S2, no S3-S4, no murmurs. Respiratory: Lungs clear to auscultation bilaterally Gastrointestinal: Abdomen is soft, nontender Musculoskeletal: There is no pedal edema. Neurological:. Speech is normal. Skin: Skin is warm and dry - Labs CBC & Chem 7: 03/18/21 16:09 03/18/21 16:09 Labs: Abnormal Lab Results - Last 24 Hours (Table) 03/18/21 03/18/21 Range/Units 16:09 16:09 WBC 17.1 H (3.8-10.6) k/uL RBC 5.43 H (3.80-5.40) m/uL Hgb 16.8 H (11.4-16.0) gm/dL Hct 52.4 H (34.0-46.0) % Neutrophils # 16.3 H (1.3-7.7) k/uL Lymphocytes # 0.2 L (1.0-4.8) k/uL Sodium 131 L (137-145) mmol/L Chloride 96 L (98-107) mmol/L Carbon Dioxide 33 H (22-30) mmol/L Creatinine 0.43 L (0.52-1.04) mg/dL Glucose 139 H (74-99) mg/dL AST 59 H (14-36) U/L ALT 61 H (4-34) U/L Alkaline Phosphatase 231 H (38-126) U/L Total Protein 5.7 L (6.3-8.2) g/dL Albumin 3.2 L (3.5-5.0) g/dL Microbiology - Last 24 Hours (Table) 03/14/21 00:10 Blood Culture - Preliminary Blood No Growth after 96 hours 03/14/21 14:00 Anaerobic Culture - Final Pleural Fluid 03/14/21 14:00 Gram Stain - Final Pleural Fluid Body Fluid Culture - Final 03/13/21 13:38 Blood Culture - Preliminary Blood No Growth after 120 hours 03/13/21 13:38 Blood Culture - Preliminary Blood No Growth after 120 hours 03/16/21 10:15 Gram Stain - Final Bronchial Washings - Right Bronchial Washings Culture - Final Martha albicans Assessment and Plan Assessment: This is a 65-year-old female with no known past medical history that does not usually follow-up with any doctors presented to the emergency room with worsening shortness of breath and lower extremity edema. Patient had extensive workup in the ER with computed tomography scan of the chest showing bilateral lung consolidation/masses and bilateral pleural effusion. Computed tomography scan of the abdomen showing liver masses suspicious for metastatic disease with sclerotic metastasis into the sacrum and right ilium. Patient was admitted to the hospital for further management of her medical problems noted below. 1. Metastatic adenocarcinoma of the lung: With diffuse bone metastasis. MRI with no brain metastasis. Patient was seen by oncology. Currently discussing immunotherapy as an option for palliative treatmentas an outpatient 2. Acute hypercapnic respiratory failure requiring sedation and mechanical intubation on 03/14 successfully extubated on 03/16 3. Acute toxo metabolic encephalopathy secondary to above, now improved 4. 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 Sodium level on presentation 116. Nephrology consulted and following closely Started on gentle IV fluid hydration. s/p Samsca x1. Avoid overcorrection 5. Bilateral lower extremity edema, ultrasound ordered negative for acute DVT 6. Acute hypoxic respiratory failure secondary to above 7. Moderate malnutrition with BMI of 20, probably secondary to underlying malignancy. dietitian consulted 8. CODE STATUS, patient is full code. Discussed in details with her on presentation in the emergency room patient was seen and evaluated by PT/OT. Discharge planning for acute versus subacute rehab on Sunday. We will continue supportive care otherwise.
--- NOTE | 2021-03-19 10:24 | P.PN ---
Subjective Progress Note Date: 03/19/21 Principal diagnosis: Metastatic lung cancer On 03/14/2021 patient seen in follow-up in the emergency department where she is awaiting a bed on selective care unit, she is currently on 15 L of oxygen pulse ox is 98%, when the patient gets up out of bed her pulse ox drops 65, she easily desaturates, she does recover with rest. Is awake and alert, currently seems to be in no acute distress, she is in sinus mechanism with a rate of 86, blood pressure stable, blood pressure is 110/79, afebrile. Patient continues on azithromycin and Rocephin for empiric antibiotic coverage, she is on 0.9 normal saline at a rate of 75 ML per hour, she is on GI and DVT prophylaxis. Labs have been reviewed, her sodium is 119, white blood cell count is 13.7, hemoglobin is 15.9, BUN is 12 and creatinine 0.62. Echocardiogram has been completed showing EF of 55-60%, mild pulmonary hypertension with right-sided pressure of 43.5 mmHg. Lower extremity Dopplers showed possibility of a chronic DVTs. Ultrasound the chest has been completed showing a right pleural effusion pocket of 10.6 cm. patient denies any chest pain, no hemoptysis. The findings of the CT chest and chest x-ray have been reviewed and there is a high possibility of metastatic lung carcinoma Patient was reevaluated today on 03/15/2021, patient developed acute hypercapnic rest or with failure yesterday, may have been related to a dose of Dilaudid that she was given for pain control, patient was placed on BiPAP by the admitting physician, however continued to show significant hypercapnia with low pH, her pO2 on BiPAP at 40% was 108, and her pCO2 remained 93 with a pH of 7.20. Patient was seen by the rapid response team, intubated since her pCO2 remained high and the patient became up on that, repeat ABG post intubation showed a pO2 of 365 pCO2 of 63 pH of 7.36. Patient remained on mechanical ventilation overni ght, and today she is down to 40% FiO2 with ABG showing a pO2 of 83 pCO2 55 pH of 7.41. Obviously based on this ABG, the patient does have chronic hypercapnia and this time she had acute on chronic hypercapnic respiratory failure requiring intubation and mechanical ventilation. Sodium today is 118 potassium is 4.7 chloride is 86. BUN is 14 and creatinine 0.51 patient remains intubated and mechanically ventilated this morning, and considering the patient is intubated, discussed her condition with her daughter over the phone, and explained to the daughter that this is the best time to go ahead and proceed with bronchoscopy and endobronchial biopsy of right upper lobe endobronchial tumor. Daughter agreed with that decision, and consent was obtained over the phone. I went ahead and performed bronchoscopy and multiple endobronchial biopsies of large endobronchial tumor completely occluding the right upper lobe bronchus. Brushings of the tumor were done, and washings were also done. These were all sent to pathology. In the meantime the patient remains on assist control rate of 16 tidal volume is 350 FiO2 50%, and PEEP of 5. Reevaluated today on 03/16/2021, patient remains intubated and mechanically ventilated. She is presently on assist control rate of 16 tidal volume of 350 FiO2 50% and PEEP of 5. EG showed a pO2 of 113 pCO2 of 51 pH of 7.44. Sodium today is 125, the rest of the labs are basically unremarkable. Chest x-ray continues to show right upper lobe consolidation, and opacification, there is also a right-sided pleural effusion and right lower lobe atelectasis. Left side showed multifocal opacities or infiltrates. Patient was on propofol, and I have recommended stopping the propofol, considering Precedex, however will start the weaning process after propofol was discontinued. As the patient was more awake, I was able to transition the patient to pressure support of 8 and CPAP, and she seemed to do quite well with a pressure support 8 and CPAP. And I proceeded to extubating the patient to a nasal cannula with BiPAP at bedside if necessary. Patient was extubated uneventfully, and she will be maintained on her usual bronchodilators, we will continue to monitor the patient in the ICU today. Reevaluated today on 03/17/2021, patient remains in the ICU, she was extubated yesterday, and she is now on few liters nasal cannula. Asymptomatic, patient is doing great. Remains on antibiotics, remains on bronchodilators, and she is also on steroids. Cytology from the pleural effusion and pathology from the bronchoscopy are still pending. Today I am planning to transfer the patient out of the ICU to a regular medical floor, patient is a bit anxious, and I would recommend a small dose of Xanax as needed no more than 3 times a day. Her sodium is back to normal level CXXXII today, electrolytes are normal, CBC showed leukocytosis with WBC of 20.1. Hemoglobin is 14.2. Asked x-ray is basically about the same, continues to have significant airspace disease in the right lung, and scattered opacities in the left lung. The patient is seen today 03/18/2021 in follow-up in the intensive care unit. She is currently sitting up in bed. Awake and alert in no acute distress. She is maintaining O2 saturations in the 90s on 3 L/m per nasal cannula. Chest x- ray continues to show stable small to moderate right-sided pleural effusion. Stable right upper lung masslike consolidation. Right-sided volume loss redemonstrated. Bilateral right greater than left particular nodular infiltrates/edema. Pathology from transbronchial biopsies on 03/15/2021 were positive for non-small cell cancer/adenocarcinoma. Bone scan reveals multiple areas of abnormal uptake is likely office services representative of metastatic disease. No new labs today. She remains on IV Solu-Medrol. Lovenox for DVT prophylaxis. Reevaluated today on 03/19/21, patient remains in the ICU, doing well, she is only on few liters nasal cannula, in no distress. Patient is presently an overflow, she tolerated the extubation well, her pathology came back positive for metastatic adenocarcinoma. Adenocarcinoma diagnosis was made from tissue diagnosis/endobronchial tumor in the right upper lobe bronchus and from the pleural effusion which was drained few days ago. Considering the findings, obviously the patient has stage IV metastatic adenocarcinoma and she has very poor functional status. She was seen by Dr. Leo for possible rehab, Objective - Vital Signs Vital signs: Vital Signs Temp 97.3 F L 03/19/21 08:00 Pulse 94 03/19/21 08:00 Resp 18 03/19/21 08:00 BP 113/70 03/19/21 08:00 Pulse Ox 96 03/19/21 08:00 Intake & Output 03/18/21 03/19/21 03/19/21 18:59 06:59 18:59 Intake Total 200 300 Output Total 640 525 Balance -440 -225 Intake: Oral 200 300 Output: Urine 640 525 - Exam Physical Exam: Revealed a 65-year-old female in no distress. On few liters nasal cannula. Head: Atraumatic, normocephalic. HEENT:[Neck is supple.] [No neck masses.] [No thyromegaly.] [No JVD.] Chest: [Diminished breath sounds and crackles at the right base, left side is relatively clear. Cardiac Exam: [Normal S1 and S2, no S3 gallop, no murmur.] Abdomen: [Soft, nontender, no megaly, no rebound, no guarding, normal bowel sounds.] Extremities: [No clubbing, no edema, no cyanosis.] Neurological Exam: [No focal neurologic deficit.] Alert oriented 3. Psychiatric:, normal affect, normal mental status examination. Skin: No rashes. - Labs CBC & Chem 7: 03/18/21 16:09 03/18/21 16:09 Labs: Abnormal Lab Results - Last 24 Hours (Table) 03/18/21 03/18/21 Range/Units 16:09 16:09 WBC 17.1 H (3.8-10.6) k/uL RBC 5.43 H (3.80-5.40) m/uL Hgb 16.8 H (11.4-16.0) gm/dL Hct 52.4 H (34.0-46.0) % Neutrophils # 16.3 H (1.3-7.7) k/uL Lymphocytes # 0.2 L (1.0-4.8) k/uL Sodium 131 L (137-145) mmol/L Chloride 96 L (98-107) mmol/L Carbon Dioxide 33 H (22-30) mmol/L Creatinine 0.43 L (0.52-1.04) mg/dL Glucose 139 H (74-99) mg/dL AST 59 H (14-36) U/L ALT 61 H (4-34) U/L Alkaline Phosphatase 231 H (38-126) U/L Total Protein 5.7 L (6.3-8.2) g/dL Albumin 3.2 L (3.5-5.0) g/dL Microbiology - Last 24 Hours (Table) 03/14/21 00:10 Blood Culture - Preliminary Blood No Growth after 96 hours 03/14/21 14:00 Anaerobic Culture - Final Pleural Fluid 03/14/21 14:00 Gram Stain - Final Pleural Fluid Body Fluid Culture - Final 03/13/21 13:38 Blood Culture - Preliminary Blood No Growth after 120 hours 03/13/21 13:38 Blood Culture - Preliminary Blood No Growth after 120 hours 03/16/21 10:15 Gram Stain - Final Bronchial Washings - Right Bronchial Washings Culture - Final Martha albicans Assessment and Plan Assessment: Impression: Acute on chronic hypercapnic respiratory failure, likely induced by worsening bronchospasm and possible underlying COPD hypercapnia may have been exacerbated by narcotics given for pain control. Patient was extubated on 03/16/21 tolerated the extubation well so far. 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 Sodium is much better today. Suspect metastatic squamous cell lung cancer Cachexia and malnourishment with BMI of 21.0. Considered severe. Abnormal liver enzymes most likely secondary to hepatic metastasis. Status post bronchoscopy with multiple endobronchial biopsies brushings and washings of right upper lobe endobronchial tumor obstructing the right upper lobe Bronchus. This was done on 03/15/2021. Pathology came back positive for adenocarcinoma/pulmonary. Status post thoracentesis few days ago. Cytology came back positive for adenocarcinoma, primary pulmonary in origin Recommendation: Patient was extubated on 03/16/2021, tolerated the extubation well. Continue bronchodilators. Continue antibiotics. Continue steroids. Continue GI and DVT prophylaxis. Overall prognosis is extremely poor and guarded Transfer patient to oncology and further decisions regarding treatment will be made by oncology on the case. Although the patient is a very poor candidate for any treatment at this point. Will continue to follow Time with Patient: Less than 30
[2021-03-19] MEDS: ALPRAZolam 0.25 MG TAB PO PRN (11:09)
[2021-03-19] MEDS: HYDROcodone/APAP 5-325MG 1 EACH TAB PO PRN ×3 (11:09→20:28)
--- NOTE | 2021-03-19 11:33 | P.PN ---
Subjective Progress Note Date: 03/19/21 Principal diagnosis: This is a 65-year-old female followed up for hyponatremia, sodium admission was 116 with a creatinine was 0.35B and was 12 glucose 125. this was deemed to be from SIADH. She does have venous compression based on Doppler flow and edema likely from that. No april acute DVT but probably chronic. An echocardiogram was unremarkable for any evidence of significant cardiomyopathy and pulmonary hypertension Admission albumin was 4. Urine osmolality was 421 on 03/14/2021 Currently she is weak tired cachectic sodium has improved to 131 she did receive 12) Condition Edema, blood pressures in the 110 range, 24-hour urine output is 7 85 mL Objective - Vital Signs Vital signs: Vital Signs Temp 97.3 F L 03/19/21 08:00 Pulse 94 03/19/21 08:00 Resp 18 03/19/21 08:00 BP 113/70 03/19/21 08:00 Pulse Ox 96 03/19/21 08:00 Intake & Output 03/18/21 03/19/21 03/19/21 18:59 06:59 18:59 Intake Total 200 300 Output Total 640 525 Balance -440 -225 Intake: Oral 200 300 Output: Urine 640 525 Looks ill cachectic Looks somewhat depressed HEENT exam no JVP neck is supple no facial asymmetry Lungs are clear to auscultation good air entry bilaterally Heart sounds unremarkable for any murmur rub gallop Abdomen slightly distended Extremity exam 2+ edema more on the right than on the left as well as edema of the left upper arm where she has IV fluids Neurologically awake alert oriented but profoundly weak - Labs CBC & Chem 7: 03/18/21 16:09 03/18/21 16:09 Labs: Abnormal Lab Results - Last 24 Hours (Table) 03/18/21 03/18/21 Range/Units 16:09 16:09 WBC 17.1 H (3.8-10.6) k/uL RBC 5.43 H (3.80-5.40) m/uL Hgb 16.8 H (11.4-16.0) gm/dL Hct 52.4 H (34.0-46.0) % Neutrophils # 16.3 H (1.3-7.7) k/uL Lymphocytes # 0.2 L (1.0-4.8) k/uL Sodium 131 L (137-145) mmol/L Chloride 96 L (98-107) mmol/L Carbon Dioxide 33 H (22-30) mmol/L Creatinine 0.43 L (0.52-1.04) mg/dL Glucose 139 H (74-99) mg/dL AST 59 H (14-36) U/L ALT 61 H (4-34) U/L Alkaline Phosphatase 231 H (38-126) U/L Total Protein 5.7 L (6.3-8.2) g/dL Albumin 3.2 L (3.5-5.0) g/dL Microbiology - Last 24 Hours (Table) 03/14/21 00:10 Blood Culture - Preliminary Blood No Growth after 96 hours 03/14/21 14:00 Anaerobic Culture - Final Pleural Fluid 03/14/21 14:00 Gram Stain - Final Pleural Fluid Body Fluid Culture - Final 03/13/21 13:38 Blood Culture - Preliminary Blood No Growth after 120 hours 03/13/21 13:38 Blood Culture - Preliminary Blood No Growth after 120 hours 03/16/21 10:15 Gram Stain - Final Bronchial Washings - Right Bronchial Washings Culture - Final Martha albicans Assessment and Plan Assessment: Impression 1. Hyponatremia secondary to combination of intravascular volume depletion with edema of the legs secondary to chronic DVTs possibly based on Doppler flow. Also likely SIADH given her a malignancy 2. Newly diagnosed adenocarcinoma primary lung possibly with metastatic disease. Recommendation 1. Maintain fluid restriction at thousand cc 2. Will watch electrolytes for right now without any further [place]
--- NOTE | 2021-03-19 15:37 | US ---
EXAMINATION TYPE: US venous doppler duplex UE LT DATE OF EXAM: 03/19/2021 COMPARISON: NONE CLINICAL HISTORY: LUE edema. Iv's in left arm, swelling, no h/o dvt SIDE PERFORMED: Left Left Arm: Negative for DVT IMPRESSION: No evidence of deep vein thrombosis in the left arm.
[2021-03-19] MEDS: LIDOCAINE 5% PATCH TOPICAL SCH (20:28)
[2021-03-19] MEDS: AZITHROMYCIN 250 MG TAB PO SCH (23:41)
[2021-03-20] MEDS: HYDROcodone/APAP 5-325MG 1 EACH TAB PO PRN ×2 (00:06→14:14)
[2021-03-20] MEDS: ONDANSETRON 4 MG/2 ML VIAL IVP PRN ×3 (07:08→19:16)
[2021-03-20] MEDS: ENOXAPARIN 40 MG/0.4 ML SYRINGE SQ SCH (07:17)
[2021-03-20] MEDS: ALPRAZolam 0.25 MG TAB PO PRN ×2 (07:17→21:46)
--- NOTE | 2021-03-20 11:15 | P.PN ---
Subjective Progress Note Date: 03/20/21 Patient still complaining of pain in the back and bottom. Nutrition is still poor, did not eat any of her breakfast this morning. Still appears quite weak, cachectic. Objective - Vital Signs Vital signs: Vital Signs Temp 97.8 F 03/20/21 04:44 Pulse 98 03/20/21 07:09 Resp 20 03/20/21 04:44 BP 111/59 03/20/21 07:09 Pulse Ox 96 03/20/21 07:09 Intake & Output 03/19/21 03/20/21 03/20/21 18:59 06:59 18:59 Intake Total 50 Output Total 400 520 Balance -400 -470 Intake: Oral 50 Output: Urine 400 520 - Exam Gen: awake, alert, thin, cachectic HEENT: normocephalic, atraumatic, good hearing acuity, dry mucous membranes Resp: Diminished air exchange, breathing comfortably with no accessory muscle use CVS: good distal perfusion x 4, regular rate and rhythm GI: soft, NTTP, ND : no SPT, no CVAT, banegas catheter not present MSK: Bilateral lower extremity and left upper extremity pitting edema, no clubbing Neuro: non-focal, moving all extremities - Labs CBC & Chem 7: 03/18/21 16:09 03/18/21 16:09 Labs: Microbiology - Last 24 Hours (Table) 03/14/21 00:10 Blood Culture - Preliminary Blood No Growth after 120 hours 03/13/21 13:38 Blood Culture - Final Blood No Growth after 144 hours 03/13/21 13:38 Blood Culture - Final Blood No Growth after 144 hours Assessment and Plan Assessment: This is a 65-year-old female with no known past medical history that does not usually follow-up with any doctors presented to the emergency room with worsening shortness of breath and lower extremity edema. Patient had extensive workup in the ER with computed tomography scan of the chest showing bilateral lung consolidation/masses and bilateral pleural effusion. Computed tomography scan of the abdomen showing liver masses suspicious for metastatic disease with sclerotic metastasis into the sacrum and right ilium. Patient was admitted to the hospital for further management of her medical problems noted below. 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 Acute hypoxemic and hypercapnic respiratory failure, improving Acute toxic metabolic encephalopathy, improving -Oncology consulted, following -Pain control -PT consult -Oxygen when necessary -Nebulizers when necessary -Revisit goals of care Hyponatremia, mildly worse Severe protein calorie malnutrition, BMI 20 -Nutrition consult -Nephrology following -IVF -Continue to monitor BMP, magnesium Patient is presently full code DVT prophylaxis with enoxaparin
--- NOTE | 2021-03-20 12:09 | P.PN ---
Subjective Progress Note Date: 03/20/21 Principal diagnosis: This is a 65-year-old female followed up for hyponatremia, sodium admission was 116 with a creatinine was 0.35, Bun 12 glucose 125. this was deemed to be from SIADH. She does have venous compression based on Doppler flow and edema likely from that. No april acute DVT but probably chronic. An echocardiogram was unremarkable for any evidence of significant cardiomyopathy and pulmonary hypertension Admission albumin was 4. Urine osmolality was 421 on 03/14/2021 She was evaluated in the ER and extensive imaging showed evidence of metastatic cancer involving the liver and the sacrum. Also noted was lung nodules and bilateral pleural effusion. Currently she is weak tired cachectic sodium has improved to 133 > 131 She does have Edema, blood pressures in the 90s systolic to 110 range, 24-hour urine output is 9 20 mL Objective - Vital Signs Vital signs: Vital Signs Temp 97.8 F 03/20/21 04:44 Pulse 98 03/20/21 07:09 Resp 20 03/20/21 04:44 BP 111/59 03/20/21 07:09 Pulse Ox 96 03/20/21 07:09 Intake & Output 03/19/21 03/20/21 03/20/21 18:59 06:59 18:59 Intake Total 50 480 Output Total 400 520 Balance -400 -470 480 Intake: Oral 50 480 Output: Urine 400 520 On examination is awake alert oriented depressed and anxious. She is cachectic A chin exam no JVP neck is supple no facial asymmetry Lungs clear to auscultation she is on O2 nasal cannula. Heart sounds unremarkable for any murmur rub gallop Abdomen soft nontender Extremity exam was moderate edema off both lower extremity is in the left arm but not on the right. Neurologically awake alert oriented - Labs CBC & Chem 7: 03/18/21 16:09 03/18/21 16:09 Labs: Microbiology - Last 24 Hours (Table) 03/14/21 00:10 Blood Culture - Preliminary Blood No Growth after 120 hours 03/13/21 13:38 Blood Culture - Final Blood No Growth after 144 hours 03/13/21 13:38 Blood Culture - Final Blood No Growth after 144 hours Assessment and Plan Assessment: Impression 1. Hyponatremia secondary to combination of SIADH from malignancy Tolvaptan intravascular volume depletion with edema of the legs secondary to chronic DVTs possibly, based on Doppler . 2. Newly diagnosed adenocarcinoma primary lung possibly with metastatic disease. Recommendation 1. Maintain fluid restriction at thousand cc 2. If sodium goes down will give her small dose of [place] 7.5 mg. 3. Check labs tomorrow
[2021-03-20 12:19] LABS: African American GFR (CKD) >90 (>60 ml/min/1.73 sqM); Anion Gap 3 mmol/L; Blood Urea Nitrogen 23 mg/dL (7-17); Calcium 9.3 mg/dL (8.4-10.2); Carbon Dioxide 33 mmol/L (22-30); Chloride 94 mmol/L (98-107); Glucose 98 mg/dL (74-99); Non-African American GFR(CKD) >90 (>60 ml/min/1.73 sqM); Sodium 130 mmol/L (137-145)
[2021-03-20 12:21] LABS: Magnesium 2.1 mg/dL (1.6-2.3)
--- NOTE | 2021-03-20 16:57 | P.PN ---
Subjective Progress Note Date: 03/20/21 At the time of my evaluation the patient was very lethargic and drowsy. She was difficult to arouse. She was able to obey commands. She was barely verbal. History and review of systems obtained from family and the bedside and from nursing. He stated that the patient does get very lethargic, drowsy, with decreasing responsiveness and memory when she gets her pain medication. He appears to be much more alert and has an appetite when the effect of the pain medications wear off, but is in significant pain at the time. no fever or chills, nausea or vomiting. Objective - Vital Signs Vital signs: Vital Signs Temp 98.4 F 03/20/21 11:36 Pulse 95 03/20/21 14:18 Resp 18 03/20/21 14:18 BP 114/80 03/20/21 14:18 Pulse Ox 92 L 03/20/21 14:18 Intake & Output 03/19/21 03/20/21 03/20/21 18:59 06:59 18:59 Intake Total 50 480 Output Total 400 520 Balance -400 -470 480 Intake: Oral 50 480 Output: Urine 400 520 Other: Voiding Method Indwelling Catheter - Constitutional General appearance: Present: no acute distress - EENT Eyes: Present: EOMI ENT: Present: hearing grossly normal, normal oropharynx - Respiratory Respiratory: right: diminished - Cardiovascular Rhythm: regular Heart sounds: normal: S1, S2 - Gastrointestinal General gastrointestinal: Present: normal bowel sounds, soft - Integumentary Integumentary: Present: normal - Neurologic Neurologic: Present: CNII-XII intact - Musculoskeletal Musculoskeletal: Present: generalized weakness, strength equal bilaterally - Psychiatric Psychiatric Comment(s): Very drowsy, lethargic, difficult to arouse. Recall and comprehension appear to be significantly diminished at this time. - Labs CBC & Chem 7: 03/18/21 16:09 03/20/21 10:53 Labs: Abnormal Lab Results - Last 24 Hours (Table) 03/20/21 Range/Units 10:53 Sodium 130 L (137-145) mmol/L Chloride 94 L (98-107) mmol/L Carbon Dioxide 33 H (22-30) mmol/L BUN 23 H (7-17) mg/dL Microbiology - Last 24 Hours (Table) 03/14/21 00:10 Blood Culture - Preliminary Blood No Growth after 120 hours 03/13/21 13:38 Blood Culture - Final Blood No Growth after 144 hours 03/13/21 13:38 Blood Culture - Final Blood No Growth after 144 hours Assessment and Plan (1) Adenocarcinoma of lung, stage 4 Narrative/Plan: Pathology confirms adenocarcinoma of the lung. The patient has widespread metastatic disease including osseous metastasis on bone scan. - The diagnosis, staging implications were again discussed in detail with the patient and her family were at the bedside. They were advised that her sample will be sent for biomarker testing. If she does have an appropriate target, then typically we would use a targeted agent in first line. If not, then the standard of care would be accommodation chemotherapy with immunotherapy, with the intent of treatment in either case being palliative. - Her daughter indicated that the patient stated that she was not interested in having conventional chemotherapy but would be interested in targeted agents if she was a candidate. - Her performance status is currently very poor. They stated that the patient does appear to be alert, oriented and shows an appetite and the effect of the pain medications wear off. However she is in significant pain at that time. They were advised that if her performance status does not improve, she may not be a candidate for potentially any treatment. Prognosis with or without treatment was also discussed Current Visit: Yes Status: Acute Code(s): C34.90 - MALIGNANT NEOPLASM OF UNSP PART OF UNSP BRONCHUS OR LUNG SNOMED Code(s): 452350348 (2) Mental status alteration Narrative/Plan: Appears to be waxing and waning. This is possibly due to effect of the medications are the patient appears to be definitely better in between. I will therefore discontinue [place], he can switch her to tramadol-acetaminophen. As the patient has definite bone metastasis, she'll be started on Zometa and steroids, which can help with her pain significantly induced reduce the need for opioid pain medications. - The patient's mental status does not improve despite the above, then we would have to consider doing a lumbar puncture to rule out leptomeningeal disease. MRI was negative for parenchymal brain metastasis. Current Visit: Yes Status: Acute Code(s): R41.82 - ALTERED MENTAL STATUS, UNSPECIFIED SNOMED Code(s): 418095570
[2021-03-20] MEDS ORDERED: ZOLEDRONIC ACID 4 MG in SODIUM CHLORIDE 0.9% 100 ML IV ONE (18:00)
[2021-03-20] MEDS: LIDOCAINE 5% PATCH TOPICAL SCH (20:55)
[2021-03-20] MEDS: dexAMETHasone 4 MG TAB PO SCH (20:55)
[2021-03-20] MEDS: traMADol-ACETAMINOP 37.5-325MG 1 EACH TAB PO PRN (21:44)
[2021-03-20] MEDS: MELATONIN 5 MG TABLET PO PRN (21:46)
[2021-03-21] MEDS: traMADol-ACETAMINOP 37.5-325MG 1 EACH TAB PO PRN ×4 (03:38→19:27)
[2021-03-21] MEDS ORDERED: TOLVAPTAN 15 MG 1/2 TABLET PO ONE (08:56)
--- NOTE | 2021-03-21 08:57 | P.PN ---
Subjective Patient is seen in follow-up for hyponatremia. Sodium level stable at 1:30 as of yesterday. Feels nauseous. Oral intake poor. Nonoliguric. Has a Wood catheter. Vital signs are stable. HEENT: Head exam is unremarkable. LUNGS: Breath sounds decreased. HEART: Rate and Rhythm are regular. ABDOMEN: Soft, no distention. EXTREMITITES: 1+ edema. Objective - Vital Signs Vital signs: Vital Signs Temp 97.3 F L 03/21/21 04:52 Pulse 81 03/21/21 04:52 Resp 18 03/21/21 04:52 BP 111/71 03/21/21 04:52 Pulse Ox 90 L 03/21/21 04:52 Intake & Output 03/20/21 03/21/21 03/21/21 18:59 06:59 18:59 Intake Total 480 Output Total 600 400 Balance -120 -400 Intake: Oral 480 Output: Urine 600 400 Other: Voiding Method Indwelling Catheter Indwelling Catheter - Labs CBC & Chem 7: 03/18/21 16:09 03/20/21 10:53 Labs: Abnormal Lab Results - Last 24 Hours (Table) 03/20/21 Range/Units 10:53 Sodium 130 L (137-145) mmol/L Chloride 94 L (98-107) mmol/L Carbon Dioxide 33 H (22-30) mmol/L BUN 23 H (7-17) mg/dL Microbiology - Last 24 Hours (Table) 03/16/21 10:15 Fungal Culture - Preliminary Bronchial Washings - Right Yeast species 03/14/21 00:10 Blood Culture - Final Blood No Growth after 144 hours Assessment and Plan Plan: Assessment: 1. 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 Currently hypervolemic with edema. Sodium level 130 yesterday. Urine osmolality 421. 2. Lung adenocarcinoma. Oncology following. 3. Lower extremity edema. Plan: Samsca 15 mg once today. Follow-up morning labs. Encouraged oral intake.
[2021-03-21] MEDS: dexAMETHasone 4 MG TAB PO SCH ×2 (08:58→19:27)
[2021-03-21] MEDS: ENOXAPARIN 40 MG/0.4 ML SYRINGE SQ SCH (08:58)
[2021-03-21] MEDS: ONDANSETRON 4 MG/2 ML VIAL IVP PRN (09:02)
[2021-03-21 10:08] LABS: Basophils % (A) 0 %; Eosinophils % (A) 0 %; HCT 50.6 % (34.0-46.0); HGB 15.7 gm/dL (11.4-16.0); Hypochromasia Slight; Lymphocytes # (A) 0.3 k/uL (1.0-4.8); Lymphocytes % (A) 2 %; MCHC 31.1 g/dL (31.0-37.0); MCV 99.8 fL (80.0-100.0); Mean Platelet Volume 8.2; Monocytes # (A) 0.7 k/uL (0-1.0); Monocytes % (A) 4 %; Neutrophils # (A) 15.6 k/uL (1.3-7.7); Neutrophils % (A) 94 %; Platelet Count 307 k/uL (150-450); RBC 5.07 m/uL (3.80-5.40); RDW 11.3 % (11.5-15.5); WBC 16.7 k/uL (3.8-10.6)
[2021-03-21 10:22] LABS: African American GFR (CKD) >90 (>60 ml/min/1.73 sqM); Blood Urea Nitrogen 19 mg/dL (7-17); Calcium 8.9 mg/dL (8.4-10.2); Chloride 88 mmol/L (98-107); Glucose 112 mg/dL (74-99); Magnesium 2.1 mg/dL (1.6-2.3); Non-African American GFR(CKD) >90 (>60 ml/min/1.73 sqM); Potassium 4.5 mmol/L (3.5-5.1); Sodium 132 mmol/L (137-145)
[2021-03-21 10:33] LABS: Anion Gap 3 mmol/L
[2021-03-21 10:52] LABS: Carbon Dioxide 41 mmol/L (22-30)
--- NOTE | 2021-03-21 11:31 | P.PN ---
Subjective Progress Note Date: 03/21/21 Patient still complaining of pain in the back and bottom. Nutrition is still poor, ate more of her meals today. Still appears quite weak, cachectic. mental status improved from eysterday. Objective - Vital Signs Vital signs: Vital Signs Temp 97.3 F L 03/21/21 04:52 Pulse 81 03/21/21 04:52 Resp 18 03/21/21 04:52 BP 111/71 03/21/21 04:52 Pulse Ox 86 L 03/21/21 11:04 Intake & Output 03/20/21 03/21/21 03/21/21 18:59 06:59 18:59 Intake Total 480 Output Total 600 400 Balance -120 -400 Intake: Oral 480 Output: Urine 600 400 Other: Voiding Method Indwelling Catheter Indwelling Catheter - Exam Gen: awake, alert, thin, cachectic HEENT: normocephalic, atraumatic, good hearing acuity, dry mucous membranes Resp: Diminished air exchange, breathing comfortably with no accessory muscle use CVS: good distal perfusion x 4, regular rate and rhythm GI: soft, NTTP, ND : no SPT, no CVAT, banegas catheter not present MSK: Bilateral lower extremity and left upper extremity pitting edema, no clubbing Neuro: non-focal, moving all extremities - Labs CBC & Chem 7: 03/21/21 05:42 03/21/21 05:42 Labs: Abnormal Lab Results - Last 24 Hours (Table) 03/20/21 03/21/21 03/21/21 Range/Units 10:53 05:42 05:42 WBC 16.7 H (3.8-10.6) k/uL Hct 50.6 H (34.0-46.0) % RDW 11.3 L (11.5-15.5) % Neutrophils # 15.6 H (1.3-7.7) k/uL Lymphocytes # 0.3 L (1.0-4.8) k/uL Sodium 130 L 132 L (137-145) mmol/L Chloride 94 L 88 L (98-107) mmol/L Carbon Dioxide 33 H 41 H* (22-30) mmol/L BUN 23 H 19 H (7-17) mg/dL Creatinine 0.47 L (0.52-1.04) mg/dL Glucose 112 H (74-99) mg/dL Microbiology - Last 24 Hours (Table) 03/16/21 10:15 Fungal Culture - Preliminary Bronchial Washings - Right Martha albicans 03/14/21 00:10 Blood Culture - Final Blood No Growth after 144 hours Assessment and Plan Assessment: This is a 65-year-old female with no known past medical history that does not usually follow-up with any doctors presented to the emergency room with worsening shortness of breath and lower extremity edema. Patient had extensive workup in the ER with computed tomography scan of the chest showing bilateral lung consolidation/masses and bilateral pleural effusion. Computed tomography scan of the abdomen showing liver masses suspicious for metastatic disease with sclerotic metastasis into the sacrum and right ilium. Patient was admitted to the hospital for further management of her medical problems noted below. 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 Patient is presently full code DVT prophylaxis with enoxaparin
--- NOTE | 2021-03-21 11:39 | P.PN ---
Subjective Progress Note Date: 03/21/21 Principal diagnosis: New Adenocarcinoma Objective - Vital Signs Vital signs: Vital Signs Temp 97.3 F L 03/21/21 04:52 Pulse 81 03/21/21 04:52 Resp 18 03/21/21 04:52 BP 111/71 03/21/21 04:52 Pulse Ox 86 L 03/21/21 11:04 Intake & Output 03/20/21 03/21/21 03/21/21 18:59 06:59 18:59 Intake Total 480 Output Total 600 400 Balance -120 -400 Intake: Oral 480 Output: Urine 600 400 Other: Voiding Method Indwelling Catheter Indwelling Catheter - Exam - Constitutional General appearance: Present: cooperative, no acute distress, thin - EENT Eyes: Present: anicteric sclerae, EOMI ENT: Present: hearing grossly normal - Respiratory Respiratory: right: diminished, left: CTA - Cardiovascular Rhythm: regular Heart sounds: normal: S1, S2 Abnormal Heart Sounds: Absent: systolic murmur, diastolic murmur, rub, S3 Gallop, S4 Gallop, click, other - Peripheral edema leg Peripheral Edema: bilateral: None - Gastrointestinal General gastrointestinal: Present: normal bowel sounds, soft - Musculoskeletal Musculoskeletal: Present: generalized weakness - Psychiatric Psychiatric Comment(s): Lethargic, slow to respond, not as alert as when previously seen, calm - Labs CBC & Chem 7: 03/21/21 05:42 03/21/21 05:42 Labs: Abnormal Lab Results - Last 24 Hours (Table) 03/20/21 03/21/21 03/21/21 Range/Units 10:53 05:42 05:42 WBC 16.7 H (3.8-10.6) k/uL Hct 50.6 H (34.0-46.0) % RDW 11.3 L (11.5-15.5) % Neutrophils # 15.6 H (1.3-7.7) k/uL Lymphocytes # 0.3 L (1.0-4.8) k/uL Sodium 130 L 132 L (137-145) mmol/L Chloride 94 L 88 L (98-107) mmol/L Carbon Dioxide 33 H 41 H* (22-30) mmol/L BUN 23 H 19 H (7-17) mg/dL Creatinine 0.47 L (0.52-1.04) mg/dL Glucose 112 H (74-99) mg/dL Microbiology - Last 24 Hours (Table) 03/16/21 10:15 Fungal Culture - Preliminary Bronchial Washings - Right Martha albicans 03/14/21 00:10 Blood Culture - Final Blood No Growth after 144 hours Assessment and Plan (1) Lung mass Current Visit: Yes Status: Acute Priority: High Code(s): R91.8 - OTHER NONSPECIFIC ABNORMAL FINDING OF LUNG FIELD SNOMED Code(s): 060506899 Plan: - Imaging and Cardiology MRI - head: report reviewed Assessment and Plan (1) Hyponatremia Narrative/Plan: Suspect 2/2 SIDAH of malignancy. 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 Will send pathology for NGS is hopes of actionable mutation. Liquid bx in office. Check EGFR, ROS-1, RET, ALK, PDL1, BRAF Patient needs to improve overall performance, possible need of rehab Discussed in detail with primary team Physician Attest: I have completed the full history and physical and agree with above dictation, dictated as a scribe.
[2021-03-21] MEDS ORDERED: VANCOMYCIN IV PER PHARMACY 1 EACH MISC MISCELLANE PRN (12:08)
--- NOTE | 2021-03-21 12:48 | XR ---
EXAMINATION TYPE: XR chest 1V DATE OF EXAM: 03/21/2021 CLINICAL HISTORY: Difficulty breathing progress study. Hypoxia. TECHNIQUE: Single AP portable upright view of the chest is obtained. COMPARISON: Chest x-ray from 3 days earlier and older studies. CTA chest 8 days ago. FINDINGS: Persistent completely opacified right lung apex likely corresponding to obstructing suprah ilar mass with postobstructive atelectasis as there is right upper lung volume loss redemonstrated. P ersistent small to moderate-sized right pleural effusion with associated right lung reticular nodular opacity suggesting edema and/or infiltrates. Reticulonodular opacities throughout the left lung rede monstrated. Cardiac silhouette size is stable and within normal limits. Underlying scoliotic curvatur e redemonstrated. IMPRESSION: Stable small to moderate size right pleural effusion. Stable right upper lung masslike consolidation likely reflecting underlying mass or neoplasm and peripheral postobstructive atelectasis. Right-sided volume loss redemonstrated. Bilateral right greater than left reticulonodular opacities could reflec t infiltrates and/or edema are redemonstrated. No significant change from most recent x-ray. Lymphang itic spread of neoplasm would be in the differential also.
[2021-03-21] MEDS: METOCLOPRAMIDE 5 MG TAB PO SCH ×2 (12:59→16:34)
[2021-03-21] MEDS: VANCOMYCIN 1,000 MG in SODIUM CHLORIDE 0.9% 250 ML IVPB SCH (13:00)
[2021-03-21] MEDS: PIPERACILLIN-TAZOBACTAM 3.375 GM in SODIUM CHLORIDE 0.9% 100 ML IVPB SCH ×2 (13:01→19:29)
[2021-03-21 17:41] LABS: ABG Base Excess 21.1 mmol/L; ABG Oxygen Saturation 93.2 % (94-97); ABG PH 7.38 (7.35-7.45); ABG PO2 63 mmHg (83-108); ABG TCO2 49 mmol/L (19-24); Allen Test Performed? Yes
[2021-03-21 17:52] LABS: ABG HCO3 46 mmol/L (21-25); ABG PCO2 79 mmHg (35-45)
[2021-03-21] MEDS: IPRATROPIUM-ALBUTEROL 3 ML NEB INHALATION PRN (19:10)
[2021-03-21] MEDS: LIDOCAINE 5% PATCH TOPICAL SCH (19:28)
[2021-03-21] MEDS: MIRTAZAPINE 15 MG TAB PO SCH (19:28)
[2021-03-21] MEDS: ALPRAZolam 0.25 MG TAB PO PRN (19:30)
[2021-03-22] MEDS: VANCOMYCIN 1,000 MG in SODIUM CHLORIDE 0.9% 250 ML IVPB SCH ×2 (00:10→12:06)
[2021-03-22] MEDS: traMADol-ACETAMINOP 37.5-325MG 1 EACH TAB PO PRN ×4 (03:00→21:48)
[2021-03-22] MEDS: ALPRAZolam 0.25 MG TAB PO PRN (03:44)
[2021-03-22] MEDS: PIPERACILLIN-TAZOBACTAM 3.375 GM in SODIUM CHLORIDE 0.9% 100 ML IVPB SCH ×3 (04:06→20:44)
[2021-03-22] MEDS: dexAMETHasone 4 MG TAB PO SCH ×2 (09:13→21:47)
[2021-03-22] MEDS: METOCLOPRAMIDE 5 MG TAB PO SCH ×3 (09:13→17:38)
[2021-03-22] MEDS: ENOXAPARIN 40 MG/0.4 ML SYRINGE SQ SCH (09:13)
[2021-03-22 10:03] LABS: African American GFR (CKD) 118.5 (60.0-200.0); Albumin 3.1 g/dL (3.8-4.9); Albumin/Globulin Ratio 1.94 (1.60-3.17); Anion Gap 8.2 mmol/L (4.00-12.00); BUN/Creat Ratio 25.8 Ratio (12.00-20.00); Blood Urea Nitrogen 12.9 mg/dL (9.0-27.0); Calcium 8.7 mg/dL (8.7-10.3); Carbon Dioxide 39.8 mmol/L (21.6-31.8); Globulin 1.6 g/dL (1.6-3.3); Magnesium 2.1 mg/dL (1.5-2.4); Non-African American GFR(CKD) 102.3 (60.0-200.0); Potassium 4.4 mmol/L (3.5-5.5); Total Bilirubin 0.3 mg/dL (0.30-1.20); Total Protein 4.7 g/dL (6.2-8.2)
--- NOTE | 2021-03-22 10:58 | P.PN ---
Subjective Patient is seen in follow-up for hyponatremia. Sodium level 144 this morning. Oral intake just fair. Nonoliguric. Has a Wood catheter. Vital signs are stable. HEENT: Head exam is unremarkable. LUNGS: Breath sounds decreased. HEART: Rate and Rhythm are regular. ABDOMEN: Soft, no distention. EXTREMITITES: 1+ edema. Objective - Vital Signs Vital signs: Vital Signs Temp 97.6 F 03/22/21 04:50 Pulse 78 03/22/21 04:50 Resp 18 03/22/21 04:50 BP 104/68 03/22/21 04:50 Pulse Ox 96 03/22/21 04:50 Intake & Output 03/21/21 03/22/21 03/22/21 18:59 06:59 18:59 Output Total 1900 800 Balance -1900 -800 Weight 54.6 kg Output: Urine 1900 800 Other: Voiding Method Indwelling Catheter Indwelling Catheter Indwelling Catheter # Voids 0 - Labs CBC & Chem 7: 03/21/21 05:42 03/22/21 05:35 Labs: Abnormal Lab Results - Last 24 Hours (Table) 03/21/21 03/21/21 03/21/21 Range/Units 05:42 05:42 17:22 ABG pCO2 79 H* (35-45) mmHg ABG pO2 63 L (83-108) mmHg ABG HCO3 46 H* (21-25) mmol/L ABG Total CO2 49 H (19-24) mmol/L ABG O2 Saturation 93.2 L (94-97) % Sodium 132 L (137-145) mmol/L Chloride 88 L (98-107) mmol/L Carbon Dioxide 41 H* (22-30) mmol/L BUN 19 H (7-17) mg/dL Creatinine 0.47 L (0.52-1.04) mg/dL BUN/Creatinine Ratio (12.00-20.00) Ratio Glucose 112 H (74-99) mg/dL AST (13-35) U/L ALT (8-44) U/L Alkaline Phosphatase (41-126) U/L Total Protein (6.2-8.2) g/dL Albumin (3.8-4.9) g/dL Procalcitonin 0.13 H (0.02-0.09) ng/mL 03/22/21 Range/Units 05:35 ABG pCO2 (35-45) mmHg ABG pO2 (83-108) mmHg ABG HCO3 (21-25) mmol/L ABG Total CO2 (19-24) mmol/L ABG O2 Saturation (94-97) % Sodium (137-145) mmol/L Chloride (98-107) mmol/L Carbon Dioxide 39.8 H (22-30) mmol/L BUN (7-17) mg/dL Creatinine 0.5 L (0.52-1.04) mg/dL BUN/Creatinine Ratio 25.80 H (12.00-20.00) Ratio Glucose 125 H (74-99) mg/dL AST 37 H (13-35) U/L ALT 46 H (8-44) U/L Alkaline Phosphatase 232 H (41-126) U/L Total Protein 4.7 L (6.2-8.2) g/dL Albumin 3.1 L (3.8-4.9) g/dL Procalcitonin (0.02-0.09) ng/mL Microbiology - Last 24 Hours (Table) 03/16/21 10:15 Fungal Culture - Preliminary Bronchial Washings - Right Martha albicans Assessment and Plan Plan: Assessment: 1. 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 Hypervolemic. Sodium level 144 today. Urine osmolality 421. Status post [facility] March 21. 2. Lung adenocarcinoma. Oncology following. 3. Lower extremity edema. Better. 4. Metabolic alkalosis. ABG reviewed - suggestive of compensatory respiratory acidosis. Also on steroids. Plan: Encouraged oral intake. Add D5W at 50 mL an hour for 4 hours to prevent further rise in sodium. Repeat sodium level this afternoon.
[2021-03-22] MEDS ORDERED: DEXTROSE 5% IN WATER 1,000 ML IV SCH (11:00)
[2021-03-22] MEDS: IPRATROPIUM-ALBUTEROL 3 ML NEB INHALATION PRN ×3 (11:04→19:42)
[2021-03-22] MEDS: ALPRAZolam 0.25 MG TAB PO SCH ×2 (11:49→17:38)
--- NOTE | 2021-03-22 11:57 | P.PN ---
Subjective Progress Note Date: 03/22/21 Principal diagnosis: New Adenocarcinoma She is more alert today, RN is concerned about the anxiety, likely due to rebuild of pleural fluid. Objective - Vital Signs Vital signs: Vital Signs Temp 98.2 F 03/22/21 11:16 Pulse 83 03/22/21 11:17 Resp 18 03/22/21 04:50 BP 124/76 03/22/21 11:16 Pulse Ox 96 03/22/21 11:16 Intake & Output 03/21/21 03/22/21 03/22/21 18:59 06:59 18:59 Output Total 1900 800 Balance -1900 -800 Weight 54.6 kg Output: Urine 1900 800 Other: Voiding Method Indwelling Catheter Indwelling Catheter Indwelling Catheter # Voids 0 - Exam - Constitutional General appearance: Present: cooperative, no acute distress, thin - EENT Eyes: Present: anicteric sclerae, EOMI ENT: Present: hearing grossly normal - Respiratory Respiratory: right: diminished, worsening diminished today LUE Edema - Cardiovascular Rhythm: regular Heart sounds: normal: S1, S2 Abnormal Heart Sounds: Absent: systolic murmur, diastolic murmur, rub, S3 Gallop, S4 Gallop, click, other - Peripheral edema leg Peripheral Edema: bilateral: None - Gastrointestinal General gastrointestinal: Present: normal bowel sounds, soft - Musculoskeletal Musculoskeletal: Present: generalized weakness - Psychiatric Psychiatric Comment(s): Lethargic, slow to respond, not as alert as when previously seen, calm - Labs CBC & Chem 7: 03/21/21 05:42 03/22/21 05:35 Labs: Abnormal Lab Results - Last 24 Hours (Table) 03/21/21 03/21/21 03/22/21 Range/Units 05:42 17:22 05:35 ABG pCO2 79 H* (35-45) mmHg ABG pO2 63 L (83-108) mmHg ABG HCO3 46 H* (21-25) mmol/L ABG Total CO2 49 H (19-24) mmol/L ABG O2 Saturation 93.2 L (94-97) % Carbon Dioxide 39.8 H (21.6-31.8) mmol/L Creatinine 0.5 L (0.6-1.5) mg/dL BUN/Creatinine Ratio 25.80 H (12.00-20.00) Ratio Glucose 125 H (70-110) mg/dL AST 37 H (13-35) U/L ALT 46 H (8-44) U/L Alkaline Phosphatase 232 H (41-126) U/L Total Protein 4.7 L (6.2-8.2) g/dL Albumin 3.1 L (3.8-4.9) g/dL Procalcitonin 0.13 H (0.02-0.09) ng/mL Microbiology - Last 24 Hours (Table) 03/16/21 10:15 Fungal Culture - Preliminary Bronchial Washings - Right Martha albicans Assessment and Plan (1) Lung mass Current Visit: Yes Status: Acute Priority: High Code(s): R91.8 - OTHER NONSPECIFIC ABNORMAL FINDING OF LUNG FIELD SNOMED Code(s): 319219283 Plan: - Imaging and Cardiology MRI - head: report reviewed Assessment and Plan (1) Hyponatremia Narrative/Plan: Suspect 2/2 SIDAH of malignancy. 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 Will send pathology for NGS is hopes of actionable mutation. Liquid bx in office. Check EGFR, ROS-1, RET, ALK, PDL1, BRAF Patient needs to improve overall performance, possible need of rehab Discussed in detail with primary team We will repeat Chest Xray again to reassess effusion and order thoracentesis if appropriate Angelica Physician Attest: I have completed the full history and physical and agree with above dictation, dictated as a scribe.
--- NOTE | 2021-03-22 12:48 | US ---
EXAMINATION TYPE: US venous doppler duplex UE LT DATE OF EXAM: 03/22/2021 COMPARISON: NONE CLINICAL HISTORY: edema left arm. SIDE PERFORMED: Left arm Left Arm: Negative for DVT. There is normal flow, compressibility and vascular waveforms. IMPRESSION: No evidence for DVT.
[2021-03-22] MEDS ORDERED: ALPRAZolam 0.25 MG TAB PO SCH (13:00)
--- NOTE | 2021-03-22 14:29 | US ---
EXAMINATION TYPE: US thoracentesis DATE OF EXAM: 03/22/2021 COMPARISON: NONE HISTORY: Pleural effusion on the right. FINDINGS: Maximal barrier technique was utilized. The skin overlying a suitable pocket of fluid was localized and the overlying skin prepped and draped. Lidocaine was used for local anesthesia. Ultras ound was used with sterile technique. A 5 Armenian catheter over guide needle was advanced into the pl eural fluid collection using ultrasound guidance the catheter advanced, needle removed. Approximatel y 0.7 liter(s) of serous fluid was removed. Catheter was withdrawn and hemostasis achieved. There i s no immediate complication. The patient discharged in stable condition without complication. IMPRESSION: STATUS POST ULTRASOUND GUIDED THORACENTESIS, POST PROCEDURE CHEST X-RAY PENDING. THIS [place] OCEDURE WAS PERFORMED BY THE UNDERSIGNED.
--- NOTE | 2021-03-22 14:39 | XR ---
EXAMINATION TYPE: XR chest 1V portable DATE OF EXAM: 03/22/2021 CLINICAL HISTORY: Post right-sided thoracentesis. TECHNIQUE: Single AP portable frontal view of the chest is obtained. COMPARISON: Chest x-ray from one day earlier and older studies FINDINGS: Persistent completely opacified right lung apex likely corresponding to obstructing suprah ilar mass with postobstructive atelectasis as there is right upper lung volume loss redemonstrated. S [place] right pleural effusion improved from prior after thoracentesis. Right lung reticular nodular opa city suggesting edema and/or infiltrates above this redemonstrated. Reticulonodular opacities through out the left lung redemonstrated. Cardiac silhouette size is stable and upper limits of normal. Under lying scoliotic curvature redemonstrated. IMPRESSION: Some improved right-sided pleural effusion after thoracentesis. No visualized pneumothora x. Other findings unchanged from x-ray one day earlier.
--- NOTE | 2021-03-22 15:16 | P.PN ---
Subjective Progress Note Date: 03/22/21 Patient still complaining of pain in the back and bottom. Nutrition is still poor, but much improved since starting standing nausea meds. Still appears quite weak, cachectic, more dyspneic, higher O2 requirement. Started on abx yesterday. Palliative to see patient today. Objective - Vital Signs Vital signs: Vital Signs Temp 98.2 F 03/22/21 14:30 Pulse 82 03/22/21 14:45 Resp 20 03/22/21 14:00 BP 131/80 03/22/21 14:45 Pulse Ox 94 L 03/22/21 14:45 Intake & Output 03/21/21 03/22/21 03/22/21 18:59 06:59 18:59 Output Total 1900 800 Balance -1900 -800 Weight 54.6 kg Output: Urine 1900 800 Other: Voiding Method Indwelling Catheter Indwelling Catheter Indwelling Catheter # Voids 0 - Exam Gen: awake, alert, thin, cachectic HEENT: normocephalic, atraumatic, good hearing acuity, dry mucous membranes Resp: Diminished air exchange, breathing comfortably with no accessory muscle use CVS: good distal perfusion x 4, regular rate and rhythm GI: soft, NTTP, ND : no SPT, no CVAT, banegas catheter not present MSK: Bilateral lower extremity and left upper extremity pitting edema, no clubbing Neuro: non-focal, moving all extremities - Labs CBC & Chem 7: 03/21/21 05:42 03/22/21 05:35 Labs: Abnormal Lab Results - Last 24 Hours (Table) 03/21/21 03/21/21 03/22/21 Range/Units 05:42 17:22 05:35 ABG pCO2 79 H* (35-45) mmHg ABG pO2 63 L (83-108) mmHg ABG HCO3 46 H* (21-25) mmol/L ABG Total CO2 49 H (19-24) mmol/L ABG O2 Saturation 93.2 L (94-97) % Carbon Dioxide 39.8 H (21.6-31.8) mmol/L Creatinine 0.5 L (0.6-1.5) mg/dL BUN/Creatinine Ratio 25.80 H (12.00-20.00) Ratio Glucose 125 H (70-110) mg/dL AST 37 H (13-35) U/L ALT 46 H (8-44) U/L Alkaline Phosphatase 232 H (41-126) U/L Total Protein 4.7 L (6.2-8.2) g/dL Albumin 3.1 L (3.8-4.9) g/dL Procalcitonin 0.13 H (0.02-0.09) ng/mL Microbiology - Last 24 Hours (Table) 03/16/21 10:15 Fungal Culture - Preliminary Bronchial Washings - Right Martha albicans Assessment and Plan Assessment: This is a 65-year-old female with no known past medical history that does not usually follow-up with any doctors presented to the emergency room with worsening shortness of breath and lower extremity edema. Patient had extensive workup in the ER with computed tomography scan of the chest showing bilateral lung consolidation/masses and bilateral pleural effusion. Computed tomography scan of the abdomen showing liver masses suspicious for metastatic disease with sclerotic metastasis into the sacrum and right ilium. Patient was admitted to the hospital for further management of her medical problems noted below. 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 Patient is presently full code DVT prophylaxis with enoxaparin
[2021-03-22] MEDS: MELATONIN 5 MG TABLET PO PRN (21:47)
[2021-03-22] MEDS: MIRTAZAPINE 15 MG TAB PO SCH (21:48)
[2021-03-22] MEDS: LIDOCAINE 5% PATCH TOPICAL SCH (21:49)
[2021-03-23] MEDS: ALPRAZolam 0.25 MG TAB PO SCH ×5 (00:20→23:05)
[2021-03-23] MEDS: VANCOMYCIN 1,000 MG in SODIUM CHLORIDE 0.9% 250 ML IVPB SCH ×2 (00:20→14:13)
[2021-03-23] MEDS: traMADol-ACETAMINOP 37.5-325MG 1 EACH TAB PO PRN ×4 (02:08→20:40)
[2021-03-23] MEDS: PIPERACILLIN-TAZOBACTAM 3.375 GM in SODIUM CHLORIDE 0.9% 100 ML IVPB SCH ×3 (05:49→20:42)
[2021-03-23] MEDS: IPRATROPIUM-ALBUTEROL 3 ML NEB INHALATION PRN ×4 (07:17→19:08)
[2021-03-23] MEDS: METOCLOPRAMIDE 5 MG TAB PO SCH ×3 (08:19→17:05)
[2021-03-23] MEDS: dexAMETHasone 4 MG TAB PO SCH ×2 (08:19→20:40)
[2021-03-23] MEDS: ENOXAPARIN 40 MG/0.4 ML SYRINGE SQ SCH (08:19)
[2021-03-23 09:58] LABS: African American GFR (CKD) 127.6 (60.0-200.0); Anion Gap 7.2 mmol/L (10.00-18.00); BUN/Creat Ratio 36.75 Ratio (12.00-20.00); Blood Urea Nitrogen 14.7 mg/dL (9.0-27.0); Calcium 8.4 mg/dL (8.7-10.3); Carbon Dioxide 37.8 mmol/L (20.0-27.5); Magnesium 2.2 mg/dL (1.5-2.4); Non-African American GFR(CKD) 110.1 (60.0-200.0); Potassium 4.7 mmol/L (3.5-5.5)
--- NOTE | 2021-03-23 10:31 | P.PN ---
Subjective Patient is seen in follow-up for hyponatremia. Sodium level 139 this morning. Oral intake just fair. Nonoliguric. Has a Wood catheter. No active complaints. Vital signs are stable. HEENT: Head exam is unremarkable. LUNGS: Breath sounds decreased. HEART: Rate and Rhythm are regular. ABDOMEN: Soft, no distention. EXTREMITITES: 1+ edema. Objective - Vital Signs Vital signs: Vital Signs Temp 97.6 F 03/23/21 04:36 Pulse 71 03/23/21 07:32 Resp 16 03/23/21 04:36 BP 142/89 03/23/21 04:36 Pulse Ox 96 03/23/21 07:17 Intake & Output 03/22/21 03/23/21 03/23/21 18:59 06:59 18:59 Output Total 350 Balance -350 Output: Urine 350 Other: Voiding Method Indwelling Catheter Indwelling Catheter Indwelling Catheter - Labs CBC & Chem 7: 03/21/21 05:42 03/23/21 05:34 Labs: Abnormal Lab Results - Last 24 Hours (Table) 03/22/21 03/23/21 Range/Units 18:16 05:34 Sodium 134 L (137-145) mmol/L Chloride 94 L (96-109) mmol/L Carbon Dioxide 37.8 H (20.0-27.5) mmol/L Anion Gap 7.20 L (10.00-18.00) mmol/L Creatinine 0.4 L (0.6-1.5) mg/dL BUN/Creatinine Ratio 36.75 H (12.00-20.00) Ratio Glucose 121 H (70-110) mg/dL Calcium 8.4 L (8.7-10.3) mg/dL Assessment and Plan Plan: Assessment: 1. 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 Sodium level 139 today. Urine osmolality 421. Status post [facility] March 21. 2. Lung adenocarcinoma. Oncology following. 3. Lower extremity edema. Better. 4. Metabolic alkalosis. ABG reviewed - suggestive of compensatory respiratory acidosis. Also on steroids. Improved. Plan: Encouraged oral intake. On fluid restriction.
[2021-03-23] MEDS ORDERED: VANCOMYCIN TROUGH DUE 1 EACH MISC MISCELLANE ONE (12:00)
--- NOTE | 2021-03-23 13:26 | P.PN ---
Subjective Progress Note Date: 03/23/21 Patient had thoracentesis in which 700 mL of fluid was pulled out yesterday. After this, her breathing significantly improved. Patient is requiring assistance with transfers, still not yet able to ambulate without significant pain. Oncology reached out to radiation oncology regarding radiation therapy to metastasis and shoulder, ribs, pelvis. Case management working on nursing home facility placement for rehab. Genetic markers are still pending. Patient is amenable to going to a nursing home facility for rehab. I spoke to the daughter today to update her about patient's present condition. Anticipated discharge in 48-72 hours. Objective - Vital Signs Vital signs: Vital Signs Temp 97.7 F 03/23/21 11:01 Pulse 69 03/23/21 11:14 Resp 16 03/23/21 11:01 BP 136/76 03/23/21 11:01 Pulse Ox 98 03/23/21 11:01 Intake & Output 03/22/21 03/23/21 03/23/21 18:59 06:59 18:59 Output Total 350 Balance -350 Output: Urine 350 Other: Voiding Method Indwelling Catheter Indwelling Catheter Indwelling Catheter - Exam Gen: awake, alert, thin, cachectic HEENT: normocephalic, atraumatic, good hearing acuity, dry mucous membranes Resp: Diminished air exchange, breathing comfortably with no accessory muscle use CVS: good distal perfusion x 4, regular rate and rhythm GI: soft, NTTP, ND : no SPT, no CVAT, banegas catheter not present MSK: Bilateral lower extremity and left upper extremity pitting edema, no clubbing Neuro: non-focal, moving all extremities - Labs CBC & Chem 7: 03/21/21 05:42 03/23/21 05:34 Labs: Abnormal Lab Results - Last 24 Hours (Table) 03/22/21 03/23/21 Range/Units 18:16 05:34 Sodium 134 L (137-145) mmol/L Chloride 94 L (96-109) mmol/L Carbon Dioxide 37.8 H (20.0-27.5) mmol/L Anion Gap 7.20 L (10.00-18.00) mmol/L Creatinine 0.4 L (0.6-1.5) mg/dL BUN/Creatinine Ratio 36.75 H (12.00-20.00) Ratio Glucose 121 H (70-110) mg/dL Calcium 8.4 L (8.7-10.3) mg/dL Assessment and Plan Assessment: This is a 65-year-old female with no known past medical history that does not usually follow-up with any doctors presented to the emergency room with w orsening shortness of breath and lower extremity edema. Patient had extensive workup in the ER with computed tomography scan of the chest showing bilateral lung consolidation/masses and bilateral pleural effusion. Computed tomography scan of the abdomen showing liver masses suspicious for metastatic disease with sclerotic metastasis into the sacrum and right ilium. Patient was admitted to the hospital for further management of her medical problems noted below. 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 Hyponatremia, mildly worse Severe protein calorie malnutrition, BMI 20 -Nutrition consult -Nephrology following -IVF -Continue to monitor BMP, magnesium -added mirtazipine for appetite -steroids for appetite -added standing reglan to improve nausea symptoms. Patient is presently full code DVT prophylaxis with enoxaparin
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
--- NOTE | 2021-03-23 20:02 | P.PN ---
Subjective Progress Note Date: 03/22/21 Principal diagnosis: New Adenocarcinoma Milena is sitting in bed and we had a long discussion with her and primary care team today regarding the importance of increased overall strength with preferably rehab. We have also asked Dr. arora to come back to see her regarding palliaitive [id number] Objective - Vital Signs Vital signs: Vital Signs Temp 98 F 03/22/21 19:47 Pulse 78 03/22/21 19:52 Resp 16 03/22/21 19:47 BP 121/73 03/22/21 19:47 Pulse Ox 100 03/22/21 19:47 Intake & Output 03/22/21 03/22/21 03/23/21 06:59 18:59 06:59 Output Total 800 350 Balance -800 -350 Output: Urine 800 350 Other: Voiding Method Indwelling Catheter Indwelling Catheter # Voids 0 - Exam - Constitutional General appearance: Present: cooperative, no acute distress, thin - EENT Eyes: Present: anicteric sclerae, EOMI ENT: Present: hearing grossly normal - Respiratory Respiratory: right: diminished, worsening diminished today LUE Edema - Cardiovascular Rhythm: regular Heart sounds: normal: S1, S2 Abnormal Heart Sounds: Absent: systolic murmur, diastolic murmur, rub, S3 Gallop, S4 Gallop, click, other - Peripheral edema leg Peripheral Edema: bilateral: None - Gastrointestinal General gastrointestinal: Present: normal bowel sounds, soft - Musculoskeletal Musculoskeletal: Present: generalized weakness - Psychiatric Psychiatric Comment(s): Lethargic, slow to respond, not as alert as when previously seen, calm - Labs CBC & Chem 7: 03/21/21 05:42 03/23/21 05:34 Labs: Abnormal Lab Results - Last 24 Hours (Table) 03/21/21 03/22/21 03/22/21 Range/Units 05:42 05:35 18:16 Sodium 134 L (137-145) mmol/L Carbon Dioxide 39.8 H (21.6-31.8) mmol/L Creatinine 0.5 L (0.6-1.5) mg/dL BUN/Creatinine Ratio 25.80 H (12.00-20.00) Ratio Glucose 125 H (70-110) mg/dL AST 37 H (13-35) U/L ALT 46 H (8-44) U/L Alkaline Phosphatase 232 H (41-126) U/L Total Protein 4.7 L (6.2-8.2) g/dL Albumin 3.1 L (3.8-4.9) g/dL Procalcitonin 0.13 H (0.02-0.09) ng/mL Assessment and Plan (1) Lung mass Current Visit: Yes Status: Acute Priority: High Code(s): R91.8 - OTHER NONSPECIFIC ABNORMAL FINDING OF LUNG FIELD SNOMED Code(s): 573139081 Plan: - Imaging and Cardiology MRI - head: report reviewed Assessment and Plan (1) Hyponatremia Narrative/Plan: Suspect 2/2 SIDAH of malignancy. 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 Will send pathology for NGS is hopes of actionable mutation. Liquid bx in office. Check EGFR, ROS-1, RET, ALK, PDL1, BRAF Patient needs to improve overall performance, possible need of rehab Discussed in detail with primary team PLAN: - Await re-evaluation by Dr. arora for possible plan of palliaitive radiation - Await patients final decision regarding rehab and possible reassessment for IP R
[2021-03-23] MEDS: MIRTAZAPINE 15 MG TAB PO SCH (20:41)
[2021-03-23] MEDS: LIDOCAINE 5% PATCH TOPICAL SCH (20:41)
[2021-03-24] MEDS: traMADol-ACETAMINOP 37.5-325MG 1 EACH TAB PO PRN ×5 (02:03→21:26)
[2021-03-24] MEDS: ALPRAZolam 0.25 MG TAB PO SCH ×3 (05:21→17:46)
[2021-03-24] MEDS: PIPERACILLIN-TAZOBACTAM 3.375 GM in SODIUM CHLORIDE 0.9% 100 ML IVPB SCH ×3 (05:21→21:27)
[2021-03-24] MEDS: IPRATROPIUM-ALBUTEROL 3 ML NEB INHALATION PRN ×3 (07:25→14:55)
[2021-03-24 07:34] LABS: Basophils % (A) 0 %; Eosinophils # (A) 0.1 k/uL (0-0.7); Eosinophils % (A) 0 %; HCT 49.7 % (34.0-46.0); Hypochromasia Slight; Lymphocytes # (A) 0.3 k/uL (1.0-4.8); Lymphocytes % (A) 2 %; MCH 30.2 pg (25.0-35.0); MCHC 30.2 g/dL (31.0-37.0); MCV 99.9 fL (80.0-100.0); Mean Platelet Volume 7.9; Monocytes # (A) 0.8 k/uL (0-1.0); Monocytes % (A) 5 %; Neutrophils # (A) 14.7 k/uL (1.3-7.7); Neutrophils % (A) 92 %; Platelet Count 345 k/uL (150-450); RBC 4.98 m/uL (3.80-5.40); RDW 11.6 % (11.5-15.5); WBC 16.1 k/uL (3.8-10.6)
[2021-03-24] MEDS: METOCLOPRAMIDE 5 MG TAB PO SCH ×3 (09:00→17:47)
[2021-03-24] MEDS: dexAMETHasone 4 MG TAB PO SCH ×2 (09:00→21:26)
[2021-03-24] MEDS: ENOXAPARIN 40 MG/0.4 ML SYRINGE SQ SCH (09:08)
[2021-03-24 11:34] LABS: African American GFR (CKD) 128.3 (60.0-200.0); Anion Gap 8.8 mmol/L (10.00-18.00); BUN/Creat Ratio 34.35 Ratio (12.00-20.00); Blood Urea Nitrogen 13.5 mg/dL (9.0-27.0); Calcium 8.4 mg/dL (8.7-10.3); Magnesium 2.2 mg/dL (1.5-2.4); Non-African American GFR(CKD) 110.7 (60.0-200.0); Potassium 4.7 mmol/L (3.5-5.5)
--- NOTE | 2021-03-24 12:23 | P.PN ---
Subjective Progress Note Date: 03/24/21 Patient's shortness of breath is increasing again, oxygen requirement back to 5 L. Patient's appetite is improved, eating decent amount of her meals. Patient's pain is improved with current regimen. Patient is amenable to going to rehab. Radiation oncology deferred radiation therapy for pain control to outpatient setting. Objective - Vital Signs Vital signs: Vital Signs Temp 98.2 F 03/24/21 04:33 Pulse 80 03/24/21 11:18 Resp 20 03/24/21 04:33 BP 151/88 03/24/21 04:33 Pulse Ox 94 L 03/24/21 04:33 Intake & Output 03/23/21 03/24/21 03/24/21 18:59 06:59 18:59 Intake Total 946 400 Output Total 600 600 Balance 346 -200 Intake: Oral 946 400 Output: Urine 600 600 Uretheral (Banegas) 300 Other: Voiding Method Indwelling Catheter Indwelling Catheter Indwelling Catheter # Voids 0 - Exam Gen: awake, alert, thin, cachectic HEENT: normocephalic, atraumatic, good hearing acuity, dry mucous membranes Resp: Diminished air exchange, breathing comfortably with no accessory muscle use CVS: good distal perfusion x 4, regular rate and rhythm GI: soft, NTTP, ND : no SPT, no CVAT, banegas catheter not present MSK: Bilateral lower extremity and left upper extremity pitting edema, no clubbing Neuro: non-focal, moving all extremities - Labs CBC & Chem 7: 03/24/21 06:32 03/24/21 06:32 Labs: Abnormal Lab Results - Last 24 Hours (Table) 03/24/21 03/24/21 Range/Units 06:32 06:32 WBC 16.1 H (3.8-10.6) k/uL Hct 49.7 H (34.0-46.0) % MCHC 30.2 L (31.0-37.0) g/dL Neutrophils # 14.7 H (1.3-7.7) k/uL Lymphocytes # 0.3 L (1.0-4.8) k/uL Chloride 95 L (96-109) mmol/L Carbon Dioxide 35.0 H (20.0-27.5) mmol/L Anion Gap 8.80 L (10.00-18.00) mmol/L Creatinine 0.4 L (0.6-1.5) mg/dL BUN/Creatinine Ratio 34.35 H (12.00-20.00) Ratio Glucose 116 H (70-110) mg/dL Calcium 8.4 L (8.7-10.3) mg/dL Assessment and Plan Assessment: This is a 65-year-old female with no known past medical history that does not usually follow-up with any doctors presented to the emergency room with worsening shortness of breath and lower extremity edema. Patient had extensive workup in the ER with computed tomography scan of the chest showing bilateral lung consolidation/masses and bilateral pleural effusion. Computed tomography scan of the abdomen showing liver masses suspicious for metastatic disease with sclerotic metastasis into the sacrum and right ilium. Patient was admitted to the hospital for further management of her medical problems noted below. 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 Patient is presently full code DVT prophylaxis with enoxaparin
[2021-03-24] MEDS ORDERED: IPRATROPIUM-ALBUTEROL 3 ML NEB INHALATION PRN (16:47)
[2021-03-24] MEDS: IPRATROPIUM-ALBUTEROL 3 ML NEB INHALATION SCH (20:52)
[2021-03-24] MEDS: MIRTAZAPINE 15 MG TAB PO SCH (21:26)
[2021-03-24] MEDS: LIDOCAINE 5% PATCH TOPICAL SCH (21:27)
[2021-03-25] MEDS: ALPRAZolam 0.25 MG TAB PO SCH ×5 (00:03→23:25)
[2021-03-25] MEDS: traMADol-ACETAMINOP 37.5-325MG 1 EACH TAB PO PRN ×6 (02:54→23:25)
[2021-03-25] MEDS: PIPERACILLIN-TAZOBACTAM 3.375 GM in SODIUM CHLORIDE 0.9% 100 ML IVPB SCH ×3 (04:49→20:15)
[2021-03-25] MEDS: IPRATROPIUM-ALBUTEROL 3 ML NEB INHALATION SCH ×4 (07:37→19:49)
--- NOTE | 2021-03-25 08:26 | XR ---
EXAMINATION TYPE: XR chest 1V portable DATE OF EXAM: 03/25/2021 Comparison: 03/22/2021 Clinical History: 65-year-old female right pleural effusion Findings: Right heart margin obscured by adjacent pleural parenchymal opacity. Extensive opacification througho ut the right hemithorax. Patchy opacity throughout the left mid and lower lung as well. Findings are slightly worsened now on the right given greater degree of obscuration of the right hemidiaphragm. Impression: Extensive pleural-parenchymal opacity persists throughout the right hemithorax with associated volume loss. Changes slightly worsened from prior. Patchy infiltrates throughout the left mid and lower rosa g also persist.
[2021-03-25] MEDS: dexAMETHasone 4 MG TAB PO SCH ×2 (08:58→20:14)
[2021-03-25] MEDS: METOCLOPRAMIDE 5 MG TAB PO SCH ×3 (08:58→17:40)
[2021-03-25] MEDS: ENOXAPARIN 40 MG/0.4 ML SYRINGE SQ SCH ×2 (09:00→17:43)
--- NOTE | 2021-03-25 11:10 | P.PN ---
Subjective Progress Note Date: 03/25/21 Patient's shortness of breath is increasing again, oxygen requirement back to 5 L. Patient's appetite is improved, eating decent amount of her meals. Patient's pain is improved with current regimen. Patient is however reporting difficulty swallowing today, and has had a hoarse voice. Seen by vascular surgery, plans for Pleurx placement. Objective - Vital Signs Vital signs: Vital Signs Temp 97.9 F 03/25/21 05:00 Pulse 80 03/25/21 11:06 Resp 18 03/25/21 05:00 BP 152/90 03/25/21 05:00 Pulse Ox 92 L 03/25/21 07:39 Intake & Output 03/24/21 03/25/21 03/25/21 18:59 06:59 18:59 Intake Total 100 Output Total 1900 Balance 100 -1900 Weight 54.6 kg Intake: Intake, IV Titration 100 Amount Piperacillin-Tazobactam 3 100 .375 gm In Sodium Chloride 0.9% 100 ml @ 25 mls/hr IVPB Q8H [facility] Rx#: [id number] Output: Urine 1900 Other: Voiding Method Indwelling Catheter Indwelling Catheter Indwelling Catheter # Voids 0 - Exam Gen: awake, alert, thin, cachectic HEENT: normocephalic, atraumatic, good hearing acuity, dry mucous membranes Resp: Diminished air exchange, breathing comfortably with no accessory muscle use CVS: good distal perfusion x 4, regular rate and rhythm GI: soft, NTTP, ND : no SPT, no CVAT, banegas catheter not present MSK: Bilateral lower extremity and left upper extremity pitting edema, no clubbing Neuro: non-focal, moving all extremities - Labs CBC & Chem 7: 03/24/21 06:32 03/24/21 06:32 Labs: Abnormal Lab Results - Last 24 Hours (Table) 03/24/21 Range/Units 06:32 Chloride 95 L (96-109) mmol/L Carbon Dioxide 35.0 H (20.0-27.5) mmol/L Anion Gap 8.80 L (10.00-18.00) mmol/L Creatinine 0.4 L (0.6-1.5) mg/dL BUN/Creatinine Ratio 34.35 H (12.00-20.00) Ratio Glucose 116 H (70-110) mg/dL Calcium 8.4 L (8.7-10.3) mg/dL Assessment and Plan Assessment: This is a 65-year-old female with no known past medical history that does not usually follow-up with any doctors presented to the emergency room with worsening shortness of breath and lower extremity edema. Patient had extensive workup in the ER with computed tomography scan of the chest showing bilateral lung consolidation/masses and bilateral pleural effusion. Computed tomography scan of the abdomen showing liver masses suspicious for metastatic disease with sclerotic metastasis into the sacrum and right ilium. Patient was admitted to the hospital for further management of her medical problems noted below. 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 Acute hypoxemic and hypercapnic respiratory failure, worsening Acute toxic metabolic encephalopathy, improving -Oncology consulted, following -Radiation oncology consulted -Pain control -PT consult -Oxygen when necessary -Nebulizers when necessary -Revisit goals of care, palliative consulted -zosyn, -CT of the neck with contrast -Vascular surgery consult, likely Pleurx placement Hyponatremia, mildly worse Severe protein calorie malnutrition, BMI 20 -Nutrition consult -Nephrology following -IVF -Continue to monitor BMP, magnesium -added mirtazipine for appetite -steroids for appetite -added standing reglan to improve nausea symptoms. Patient is presently full code DVT prophylaxis with enoxaparin
--- NOTE | 2021-03-25 12:32 | US ---
EXAMINATION TYPE: US chest DATE OF EXAM: 03/25/2021 COMPARISON: CT same date CLINICAL HISTORY: Pleural effusion. TECHNIQUE: Targeted ultrasound of the posterior lower right hemithorax EXAM MEASUREMENTS: Right Pleural Effusion pocket size: 3.8 cm Right skin surface to fluid distance: 1.3 cm Right side marked for possible thoracentesis outside the dept. Pulmonologists are able to review the images in the patient?s EMR. Ultrasound performed in a limited fashion IMPRESSIONS: Right greater than left pleural effusion
--- NOTE | 2021-03-25 12:38 | CT ---
EXAMINATION TYPE: CT neck chest w con DATE OF EXAM: 03/25/2021 COMPARISON: Radiograph same day and CT chest 03/13/2021 HISTORY: 65-year-old female for swimmers, Difficulty swallowing and sore throat. Metastatic cancer. TECHNIQUE: Contiguous axial scanning of the soft tissues of the neck and chest performed with IV Cont rast, patient injected with 100ml mL of Isovue 300. Coronal and sagittal reconstructions performed. CT DLP: 545.7 mGycm Automated exposure control for dose reduction was used. FINDINGS: NECK: 3 mm of right-sided cerebellar tonsil. Findings suggest benign tonsillar ectopia. Otherwise, intracra nial structures, orbits and globes, mastoid air cells are clear. Mild mucosal thickening posterior ri ght ethmoid air cells. Right radius lesion. Nasopharynx is clear. Retropharyngeal course of the left ICA. There is also slight asymmetric thickening of the right lingu al tonsils. Otherwise, oropharynx is clear. Epiglottis and prevertebral soft tissues are satisfactory. The glottic and subglottic structures as well as the tracheal column appear clear. Lungs reported separately. Diminutive left lobe of the thyroid gland. The submandibular glands are very small. Parotid glands are atrophic. Scattered nonenlarged cervical lymph nodes are present on both sides of the upper to mid neck. There is a prominent but nonenlarged 8mm left supraclavicular lymph node, axial image 26. Moderate to advanced disc/endplate degenerative change C4-C7 levels with reversal of the normal cervi ashley lordosis. Degenerative grade 1 anterolisthesis C3-C4 and C4-C5. CHEST: Heart upper limits of normal in size without pericardial effusion. Aorta normal caliber with conventional arch vessel branching anatomy. There is a necrotic appearing right paratracheal lymph node measuring up to 2.2 cm. There is cut off of the right upper lobe bronchus and combination of atelectasis and consolidation th roughout the right upper lobe. Endobronchial evaluation is recommended. Focal right infrahilar opacity measuring up to 4.3 cm, axial image 38 with contiguous opacification e xtending to the periphery of the lung. There appears to be continued undergoing right middle lobe col lapse. Moderate right and small left pleural effusions persist. Left-sided pulmonary nodules measuring up to 1.2 cm now, unchanged. However, there is worsening bilat eral reticular nodular and groundglass opacity. Visualized upper abdomen shows mandie hepatic lymphadenopathy measuring up to 3.5 cm, mid liver mass m easuring 2.4 cm, and sagittal smaller anterior right liver lobe lesions measuring up to 1.1 cm. Left renal cyst measuring 1.6 cm Bones: Generalized anasarca. There are scattered small sclerotic foci throughout the thoracic spine. Unable to exclude osseous metastatic disease. IMPRESSION: NECK: 1. Slight asymmetric thickening right lingual tonsils incidentally noted. Atrophic thyroid, submandib ular, and parotid glands. 2. Prominent but nonenlarged 8 mm left supraclavicular lymph node is nonspecific. CHEST: 3. Continued moderate right and small left pleural effusions. Continued cut off of the right upper lo be bronchus probably due to neoplasm for which endobronchial evaluation is recommended. Right infrahi lar opacity measuring approximately 4.3 cm is also redemonstrated, possible additional neoplasm. 4. Segmental postobstructive atelectasis/consolidation of the right lower lobe has increased. Ongoing right middle lobe collapse and postobstructive atelectasis/consolidation of the right upper lobe. 5. Necrotic 2.2 cm right paratracheal lymph node now better seen. Additional metastatic disease with multiple left-sided pulmonary nodules measuring up to 1.2 cm. Hepatic metastases measuring up to 2.4 cm and possible portahepatic lymphadenopathy measuring up to 3.5 cm. 6. Worsening bilateral reticulonodular and groundglass opacities. Findings could represent progressio n in metastatic disease and/or atypical pneumonias or aspiration. 7. Scattered sclerotic foci throughout the visualized skeleton. Osteoblastic metastases not excluded.
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
[2021-03-25] MEDS: MIRTAZAPINE 15 MG TAB PO SCH (20:14)
[2021-03-25] MEDS: LIDOCAINE 5% PATCH TOPICAL SCH (20:14)
[2021-03-25] MEDS: MELATONIN 5 MG TABLET PO PRN (23:25)
[2021-03-26] MEDS: ONDANSETRON 4 MG/2 ML VIAL IVP PRN (01:47)
[2021-03-26] MEDS: traMADol-ACETAMINOP 37.5-325MG 1 EACH TAB PO PRN ×5 (03:44→22:43)
[2021-03-26] MEDS: PIPERACILLIN-TAZOBACTAM 3.375 GM in SODIUM CHLORIDE 0.9% 100 ML IVPB SCH ×3 (03:44→21:12)
[2021-03-26] MEDS: ALPRAZolam 0.25 MG TAB PO SCH ×3 (05:52→16:48)
[2021-03-26] MEDS: IPRATROPIUM-ALBUTEROL 3 ML NEB INHALATION SCH ×4 (07:37→19:50)
[2021-03-26] MEDS: dexAMETHasone 4 MG TAB PO SCH ×2 (08:38→21:12)
[2021-03-26] MEDS: ENOXAPARIN 40 MG/0.4 ML SYRINGE SQ SCH (08:38)
[2021-03-26] MEDS: METOCLOPRAMIDE 5 MG TAB PO SCH ×3 (08:38→16:48)
--- NOTE | 2021-03-26 08:40 | P.PN ---
Subjective Progress Note Date: 03/26/21 Principal diagnosis: Metastatic carcinoma primary lung versus metastasis to the lung with recurrent right malignant pleural effusion, lower extremity and left arm edema. Previous medical history of medical debility, malnourished with 30-40 pound weight loss in the last 6 weeks, lifetime nonsmoker. The patient was seen and examined this morning and the oncology unit sitting up in bed in no acute distress receiving breathing treatment. She denies any pain, does complain of some shortness of breath. Remains on 4 L nasal cannula, unable to utilize incentive spirometry, minimal air entry bilaterally, right greater than left. Ultrasound of the chest was completed yesterday to evaluate pleural effusion size, only 3.8 cm on the right side. CT of the neck and chest was re viewed as well with documented cutoff of the right upper lobe bronchus due to neoplasm, segmental postobstructive atelectasis/consolidation of the right lower lobe, ongoing right middle lobe collapse and postobstructive atelectasis/consolidation of the right upper lobe, and worsening bilateral retic ular nodular groundglass opacities potentially representing progression in metastatic disease. Objective - Vital Signs Vital signs: Vital Signs Temp 98.4 F 03/26/21 04:35 Pulse 80 03/26/21 07:51 Resp 22 03/26/21 04:35 BP 152/91 03/26/21 04:35 Pulse Ox 93 L 03/26/21 04:35 Intake & Output 03/25/21 03/26/21 03/26/21 18:59 06:59 18:59 Intake Total 1340 540 Output Total 1100 1800 Balance 240 -1260 Weight 54.6 kg Intake: Oral 1340 540 Output: Urine 1100 1800 Uretheral (Wood) 900 Other: Voiding Method Indwelling Catheter Indwelling Catheter - Exam CONSTITUTIONAL: Appears cachectic, frail, cooperative, no acute distress RESPIRATORY: Lungs sounds very diminished bilaterally, right greater than left. Respirations even, somewhat shallow, unable to take very deep breath. Currently on 4 L nasal cannula with oxygen saturation 93%. Unable to utilize incentive spirometry appropriately. Weak cough. CARDIOVASCULAR: S1, S2 present. Regular rate and rhythm. Palpable peripheral pulses bilaterally. Left upper extremity and bilateral lower extremity edema present. GASTROINTESTINAL: Abdomen soft, nontender, nondistended. Active bowel sounds present 4 quadrants. Tolerating diet GENITOURINARY: Continues to void clear, yellow urine INTEGUMENTARY: Skin is warm and dry NEUROLOGIC: Cranial nerves II through XII intact MUSKULOSKELETAL: Able to move all extremities, strength equal bilaterally, gait normal PSYCHIATRIC: Alert and oriented to person place and time, flat affect, intact judgment - Labs CBC & Chem 7: 03/24/21 06:32 03/24/21 06:32 Labs: Microbiology - Last 24 Hours (Table) 03/14/21 14:00 Fungal Culture - Preliminary Pleural Fluid - Imaging and Cardiology Chest x-ray: report reviewed, image reviewed CT scan - chest: report reviewed, image reviewed Chest ultrasound reviewed Assessment and Plan Assessment: 1. Metastatic carcinoma primary lung versus metastasis to the lung with recurrent right malignant pleural effusion 2. Lower extremity and left arm edema 3. Medical debility, malnourished with 30-40 pound weight loss in the last 6 weeks 4. Lifetime nonsmoker Plan: 1. No indication for Pleurx catheter placement at this time as fluid pocket is too small. May consider in the future, however patient's primary problem seems to be postobstructive atelectasis not significant pleural effusion as the cause for her shortness of breath 2. Wean O2 as tolerated. Try to encourage incentive spirometry use. Bronchodilators per pulmonology 3. Increase activity as tolerated 4. Medical management of other coronaries per primary care service, oncology 5. Will continue to follow Time with Patient: Greater than 30
--- NOTE | 2021-03-26 11:40 | P.PN ---
Subjective Progress Note Date: 03/26/21 Patient's oxygen requirement is 3 L. Patient's appetite is improved, eating decent amount of her meals. Patient's pain is improved with current regimen. Working well with PT. CT of the neck and chest yesterday demonstrates mediastinal, hilar, paratracheal lymphadenopathy, postobstructive atelectasis/p neumonia. Objective - Vital Signs Vital signs: Vital Signs Temp 98.4 F 03/26/21 04:35 Pulse 80 03/26/21 10:55 Resp 22 03/26/21 08:00 BP 152/91 03/26/21 04:35 Pulse Ox 93 L 03/26/21 04:35 Intake & Output 03/25/21 03/26/21 03/26/21 18:59 06:59 18:59 Intake Total 1340 540 Output Total 1100 1800 Balance 240 -1260 Weight 54.6 kg Intake: Oral 1340 540 Output: Urine 1100 1800 Uretheral (Banegas) 900 Other: Voiding Method Indwelling Catheter Indwelling Catheter Indwelling Catheter - Exam Gen: awake, alert, thin, cachectic HEENT: normocephalic, atraumatic, good hearing acuity, dry mucous membranes Resp: Diminished air exchange, breathing comfortably with no accessory muscle use CVS: good distal perfusion x 4, regular rate and rhythm GI: soft, NTTP, ND : no SPT, no CVAT, banegas catheter not present MSK: Bilateral lower extremity and left upper extremity pitting edema, no clubbing Neuro: non-focal, moving all extremities - Labs CBC & Chem 7: 03/24/21 06:32 03/24/21 06:32 Labs: Microbiology - Last 24 Hours (Table) 03/14/21 14:00 Fungal Culture - Preliminary Pleural Fluid Assessment and Plan Assessment: This is a 65-year-old female with no known past medical history that does not usually follow-up with any doctors presented to the emergency room with worsening shortness of breath and lower extremity edema. Patient had extensive workup in the ER with computed tomography scan of the chest showing bilateral lung consolidation/masses and bilateral pleural effusion. Computed tomography scan of the abdomen showing liver masses suspicious for metastatic disease with sclerotic metastasis into the sacrum and right ilium. Patient was admitted to the hospital for further management of her medical problems noted below. 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 Acute hypoxemic and hypercapnic respiratory failure, worsening Acute toxic metabolic encephalopathy, improving -Oncology consulted, following -Radiation oncology consulted -Pain control -PT consult -Oxygen when necessary -Nebulizers when necessary -Revisit goals of care, palliative consulted -bala, -CT of the neck with contrast -Vascular surgery consult Hyponatremia, mildly worse Severe protein calorie malnutrition, BMI 20 -Nutrition consult -Nephrology following -IVF -Continue to monitor BMP, magnesium -added mirtazipine for appetite -steroids for appetite -added standing reglan to improve nausea symptoms. Patient is presently full code DVT prophylaxis with enoxaparin
[2021-03-26] MEDS: MIRTAZAPINE 15 MG TAB PO SCH (21:19)
[2021-03-26] MEDS: LIDOCAINE 5% PATCH TOPICAL SCH (21:19)
[2021-03-27] MEDS: ALPRAZolam 0.25 MG TAB PO SCH ×4 (00:24→17:44)
[2021-03-27] MEDS: ONDANSETRON 4 MG/2 ML VIAL IVP PRN ×2 (00:26→05:29)
[2021-03-27] MEDS ORDERED: METOCLOPRAMIDE 5 MG/ML 2 ML VIAL IVP STA (04:16)
[2021-03-27] MEDS: PIPERACILLIN-TAZOBACTAM 3.375 GM in SODIUM CHLORIDE 0.9% 100 ML IVPB SCH ×2 (04:25→12:59)
[2021-03-27] MEDS: traMADol-ACETAMINOP 37.5-325MG 1 EACH TAB PO PRN ×5 (04:26→21:19)
[2021-03-27] MEDS ORDERED: diphenhydrAMINE 50 MG/ML 1 ML VIAL IVP STA (05:42)
[2021-03-27 06:40] LABS: Basophils # (A) 0.1 k/uL (0-0.2); Basophils % (A) 0 %; Eosinophils # (A) 0.4 k/uL (0-0.7); Eosinophils % (A) 2 %; HCT 48.9 % (34.0-46.0); HGB 14.9 gm/dL (11.4-16.0); Hypochromasia Moderate; Lymphocytes # (A) 0.6 k/uL (1.0-4.8); Lymphocytes % (A) 3 %; MCH 30.3 pg (25.0-35.0); MCHC 30.5 g/dL (31.0-37.0); MCV 99.5 fL (80.0-100.0); Mean Platelet Volume 7.5; Monocytes # (A) 1.3 k/uL (0-1.0); Monocytes % (A) 7 %; Neutrophils # (A) 16.7 k/uL (1.3-7.7); Neutrophils % (A) 87 %; Platelet Count 328 k/uL (150-450); RBC 4.92 m/uL (3.80-5.40); RDW 11.9 % (11.5-15.5); WBC 19.2 k/uL (3.8-10.6)
[2021-03-27] MEDS: IPRATROPIUM-ALBUTEROL 3 ML NEB INHALATION SCH ×4 (07:38→20:38)
--- NOTE | 2021-03-27 07:47 | P.PN ---
Subjective Progress Note Date: 03/27/21 Principal diagnosis: Metastatic carcinoma primary lung versus metastasis to the lung with recurrent right malignant pleural effusion, lower extremity and left arm edema. Previous medical history of medical debility, malnourished with 30-40 pound weight loss in the last 6 weeks, lifetime nonsmoker. The patient was seen and examined this morning and the oncology unit sitting up in bed in no acute distress, sleeping and appearing comfortable. Remains on 4 L nasal cannula with good oxygen saturation. Ultrasound of the chest was completed, only 3.8 cm on the right side. CT of the neck and chest was reviewed as well with documented cutoff of the right upper lobe bronchus due to neoplasm, segmental postobstructive atelectasis/consolidation of the right lower lobe, ongoing right middle lobe collapse and postobstructive atelectasis/consolidation of the right upper lobe, and worsening bilateral reticular nodular groundglass opacities potentially representing progression in metastatic disease. Objective - Vital Signs Vital signs: Vital Signs Temp 97.8 F 03/27/21 04:30 Pulse 94 03/27/21 04:30 Resp 24 03/27/21 04:30 BP 147/88 03/27/21 04:30 Pulse Ox 95 03/27/21 04:30 Intake & Output 03/26/21 03/27/21 03/27/21 18:59 06:59 18:59 Intake Total 200 Output Total 1200 Balance -1000 Intake: Oral 200 Output: Urine 1200 Uretheral (Wood) 600 Other: Voiding Method Indwelling Catheter Indwelling Catheter - Exam CONSTITUTIONAL: Appears cachectic, frail, no acute distress, sleeping RESPIRATORY: Lungs sounds with very little air entry on the right. Respirations even, non-labored. Currently on 4 L nasal cannula with oxygen saturation 95%. Was able to achieve 250 mL on incentive spirometry yesterday afternoon per nursing. CARDIOVASCULAR: S1, S2 present. Regular rate and rhythm. Palpable peripheral pulses bilaterally. Left upper extremity and bilateral lower extremity edema present. GASTROINTESTINAL: Abdomen soft, nontender, nondistended. Active bowel sounds present 4 quadrants. Tolerating diet GENITOURINARY: Continues to void clear, yellow urine INTEGUMENTARY: Skin is warm and dry NEUROLOGIC: Cranial nerves II through XII intact MUSKULOSKELETAL: Able to move all extremities, strength equal bilaterally - Allied health notes Allied health notes reviewed: nursing - Labs CBC & Chem 7: 03/27/21 05:31 03/24/21 06:32 Labs: Abnormal Lab Results - Last 24 Hours (Table) 03/27/21 Range/Units 05:31 WBC 19.2 H (3.8-10.6) k/uL Hct 48.9 H (34.0-46.0) % MCHC 30.5 L (31.0-37.0) g/dL Neutrophils # 16.7 H (1.3-7.7) k/uL Lymphocytes # 0.6 L (1.0-4.8) k/uL Monocytes # 1.3 H (0-1.0) k/uL Assessment and Plan Assessment: 1. Metastatic carcinoma primary lung versus metastasis to the lung with recurrent right malignant pleural effusion 2. Lower extremity and left arm edema 3. Medical debility, malnourished with 30-40 pound weight loss in the last 6 we eks 4. Lifetime nonsmoker Plan: 1. No indication for Pleurx catheter placement at this time as fluid pocket is too small. May consider in the future, however patient's primary problem seems to be postobstructive atelectasis not significant pleural effusion as the cause for her shortness of breath 2. Wean O2 as tolerated. Try to encourage incentive spirometry use. Continue bronchodilators 3. Increase activity as tolerated 4. Medical management of other coronaries per primary care service, oncology 5. Will call to update daughter today 6. Will continue to follow Time with Patient: Greater than 30
[2021-03-27] MEDS: ENOXAPARIN 40 MG/0.4 ML SYRINGE SQ SCH (08:53)
[2021-03-27] MEDS: METOCLOPRAMIDE 5 MG TAB PO SCH ×3 (08:54→17:49)
[2021-03-27] MEDS: dexAMETHasone 4 MG TAB PO SCH ×2 (08:54→20:03)
[2021-03-27 10:49] LABS: Magnesium 2.2 mg/dL (1.5-2.4)
[2021-03-27 10:59] LABS: African American GFR (CKD) 120.6 (60.0-200.0); Albumin 3.2 g/dL (3.8-4.9); Albumin/Globulin Ratio 2.09 (1.60-3.17); Anion Gap 11.5 mmol/L (10.00-18.00); BUN/Creat Ratio 27.53 Ratio (12.00-20.00); Blood Urea Nitrogen 12.8 mg/dL (9.0-27.0); Calcium 8.3 mg/dL (8.7-10.3); Globulin 1.6 g/dL (1.6-3.3); Potassium 4.5 mmol/L (3.5-5.5); Total Bilirubin 0.3 mg/dL (0.30-1.20); Total Protein 4.8 g/dL (6.2-8.2)
--- NOTE | 2021-03-27 11:21 | P.PN ---
Subjective Progress Note Date: 03/28/21 Principal diagnosis: New Adenocarcinoma Spoke to Dr. Tim and patients daughter today. will plan to focus on increasing overall performance and awaiting NGS testing results We will ask Dr. Shay to re-evluate for the option of IPR, she is stronger than when initially evaluated. Objective - Vital Signs Vital signs: Vital Signs Temp 97.8 F 03/27/21 04:30 Pulse 76 03/27/21 07:53 Resp 24 03/27/21 04:30 BP 147/88 03/27/21 04:30 Pulse Ox 95 03/27/21 04:30 Intake & Output 03/26/21 03/27/21 03/27/21 18:59 06:59 18:59 Intake Total 200 Output Total 1200 Balance -1000 Intake: Oral 200 Output: Urine 1200 Uretheral (Wood) 600 Other: Voiding Method Indwelling Catheter Indwelling Catheter - Exam - Constitutional General appearance: Present: cooperative, no acute distress, thin - EENT Eyes: Present: anicteric sclerae, EOMI ENT: Present: hearing grossly normal - Respiratory Respiratory: right: diminished, worsening diminished today LUE Edema - Cardiovascular Rhythm: regular Heart sounds: normal: S1, S2 Abnormal Heart Sounds: Absent: systolic murmur, diastolic murmur, rub, S3 Gallop, S4 Gallop, click, other - Peripheral edema leg Peripheral Edema: bilateral: None - Gastrointestinal General gastrointestinal: Present: normal bowel sounds, soft - Musculoskeletal Musculoskeletal: Present: generalized weakness - Psychiatric Psychiatric Comment(s): Lethargic, slow to respond, not as alert as when previously seen, calm - Labs CBC & Chem 7: 03/28/21 04:58 03/28/21 04:58 Labs: Abnormal Lab Results - Last 24 Hours (Table) 03/27/21 Range/Units 05:31 WBC 19.2 H (3.8-10.6) k/uL Hct 48.9 H (34.0-46.0) % MCHC 30.5 L (31.0-37.0) g/dL Neutrophils # 16.7 H (1.3-7.7) k/uL Lymphocytes # 0.6 L (1.0-4.8) k/uL Monocytes # 1.3 H (0-1.0) k/uL Assessment and Plan (1) Lung mass Current Visit: Yes Status: Acute Priority: High Code(s): R91.8 - OTHER NONSPECIFIC ABNORMAL FINDING OF LUNG FIELD SNOMED Code(s): 925284805 Plan: - Imaging and Cardiology MRI - head: report reviewed Assessment and Plan (1) Hyponatremia Narrative/Plan: Suspect 2/2 SIDAH of malignancy. Na+ improved, pt will likely have a lower baseline Current Visit: Yes Status: Acute Priority: High Code(s): E87.1 - HYPO-OSMOLALITY AND HYPONATREMIA SNOMED Code(s): 83835694 (2) Lung mass Current Visit: Yes Status: Acute Priority: High Code(s): R91.8 - OTHER NONSPECIFIC ABNORMAL FINDING OF LUNG FIELD SNOMED Code(s): 508775239 (3) Pleural effusion Current Visit: Yes Status: Acute Priority: High Code(s): J90 - PLEURAL EFFUSION, NOT ELSEWHERE CLASSIFIED SNOMED Code(s): 06911805 Plan: Adenocarcinoma likely lung primary in lifelong non-smoking athlete. Will send pathology for NGS is hopes of actionable mutation. Liquid bx in office. Check EGFR, ROS-1, RET, ALK, PDL1, BRAF Patient needs to improve overall performance, possible need of rehab Discussed in detail with primary team PLAN: Evaluation for pleurex drain for palliaitive draining has been ordered, Unf ortunetly not enough fluid to undergo therefore will plan to move forward as outpatient, will also set up for outpatient radiation and await NGS for actionable mutation Discussed above greater than 20 minutes with daughter today Discussed with Primary Recheck CBC, CMP in am Oral Thrush: Grade 2/3 - Diflucan x1 and nystatin swish QID Await IPR and Dr. Carvajal re-eval Physician Attest: I have completed the full history and physical and agree with above dictation, dictated as a ascribe.
--- NOTE | 2021-03-27 13:48 | P.PN ---
Subjective Progress Note Date: 03/27/21 Patient's oxygen requirement is 4 L. Patient's pain is improved with current regimen. Still c/o mild dysphagia. Objective - Vital Signs Vital signs: Vital Signs Temp 98.5 F 03/27/21 13:00 Pulse 88 03/27/21 13:00 Resp 19 03/27/21 13:00 BP 107/73 03/27/21 13:00 Pulse Ox 96 03/27/21 13:00 Intake & Output 03/26/21 03/27/21 03/27/21 18:59 06:59 18:59 Intake Total 200 Output Total 1200 Balance -1000 Intake: Oral 200 Output: Urine 1200 Uretheral (Banegas) 600 Other: Voiding Method Indwelling Catheter Indwelling Catheter Indwelling Catheter - Exam Gen: awake, alert, thin, cachectic HEENT: normocephalic, atraumatic, good hearing acuity, dry mucous membranes Resp: Diminished air exchange, breathing comfortably with no accessory muscle use CVS: good distal perfusion x 4, regular rate and rhythm GI: soft, NTTP, ND : no SPT, no CVAT, banegas catheter not present MSK: Bilateral lower extremity and left upper extremity pitting edema, no clubbing Neuro: non-focal, moving all extremities - Labs CBC & Chem 7: 03/27/21 05:31 03/27/21 05:31 Labs: Abnormal Lab Results - Last 24 Hours (Table) 03/27/21 03/27/21 Range/Units 05:31 05:31 WBC 19.2 H (3.8-10.6) k/uL Hct 48.9 H (34.0-46.0) % MCHC 30.5 L (31.0-37.0) g/dL Neutrophils # 16.7 H (1.3-7.7) k/uL Lymphocytes # 0.6 L (1.0-4.8) k/uL Monocytes # 1.3 H (0-1.0) k/uL Chloride 95 L (96-109) mmol/L Carbon Dioxide 33.0 H (20.0-27.5) mmol/L Creatinine 0.5 L (0.6-1.5) mg/dL BUN/Creatinine Ratio 27.53 H (12.00-20.00) Ratio Calcium 8.3 L (8.7-10.3) mg/dL AST 65 H (13-35) U/L ALT 84 H (8-44) U/L Alkaline Phosphatase 320 H (41-126) U/L Total Protein 4.8 L (6.2-8.2) g/dL Albumin 3.2 L (3.8-4.9) g/dL Assessment and Plan Assessment: This is a 65-year-old female with no known past medical history that does not usually follow-up with any doctors presented to the emergency room with worsening shortness of breath and lower extremity edema. Patient had extensive workup in the ER with computed tomography scan of the chest showing bilateral lung consolidation/masses and bilateral pleural effusion. Computed tomography scan of the abdomen showing liver masses suspicious for metastatic disease with sclerotic metastasis into the sacrum and right ilium. Patient was admitted to the hospital for further management of her medical problems noted below. 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 Acute hypoxemic and hypercapnic respiratory failure, worsening Acute toxic metabolic encephalopathy, improving -Oncology consulted, following -Radiation oncology consulted -Pain control -PT consult -Oxygen when necessary -Nebulizers when necessary -Revisit goals of care, palliative consulted -bala, d/c'd completed 7 day course -CT of the neck with contrast -Vascular surgery consult Hyponatremia, mildly worse Severe protein calorie malnutrition, BMI 20 -Nutrition consult -Nephrology following -IVF -Continue to monitor BMP, magnesium -added mirtazipine for appetite -steroids for appetite -added standing reglan to improve nausea symptoms. Patient is presently full code DVT prophylaxis with enoxaparin
[2021-03-27] MEDS: MIRTAZAPINE 15 MG TAB PO SCH (20:02)
[2021-03-27] MEDS: MELATONIN 5 MG TABLET PO PRN (20:02)
[2021-03-27] MEDS: LIDOCAINE 5% PATCH TOPICAL SCH (20:03)
[2021-03-27] MEDS: ACETAMINOPHEN TAB 325 MG TAB PO PRN (20:04)
[2021-03-28] MEDS: traMADol-ACETAMINOP 37.5-325MG 1 EACH TAB PO PRN ×5 (03:11→20:41)
[2021-03-28] MEDS: ALPRAZolam 0.25 MG TAB PO SCH ×4 (03:35→17:44)
[2021-03-28] MEDS: ONDANSETRON 4 MG/2 ML VIAL IVP PRN (05:10)
[2021-03-28] MEDS: ACETAMINOPHEN TAB 325 MG TAB PO PRN (05:10)
[2021-03-28 05:44] LABS: Basophils % (A) 0 %; Eosinophils # (A) 0.1 k/uL (0-0.7); Eosinophils % (A) 1 %; HCT 47.1 % (34.0-46.0); HGB 14.6 gm/dL (11.4-16.0); Hypochromasia Moderate; Lymphocytes # (A) 0.3 k/uL (1.0-4.8); Lymphocytes % (A) 2 %; MCH 31.1 pg (25.0-35.0); MCHC 31.1 g/dL (31.0-37.0); Mean Platelet Volume 7.1; Monocytes # (A) 0.7 k/uL (0-1.0); Monocytes % (A) 4 %; Neutrophils # (A) 15.3 k/uL (1.3-7.7); Neutrophils % (A) 93 %; Platelet Count 224 k/uL (150-450); RBC 4.71 m/uL (3.80-5.40); WBC 16.5 k/uL (3.8-10.6)
[2021-03-28] MEDS: IPRATROPIUM-ALBUTEROL 3 ML NEB INHALATION SCH ×4 (07:26→19:22)
[2021-03-28] MEDS: ENOXAPARIN 40 MG/0.4 ML SYRINGE SQ SCH (08:37)
[2021-03-28] MEDS: METOCLOPRAMIDE 5 MG TAB PO SCH ×3 (08:37→17:44)
[2021-03-28] MEDS: dexAMETHasone 4 MG TAB PO SCH ×2 (08:37→20:41)
--- NOTE | 2021-03-28 08:52 | XR ---
EXAMINATION TYPE: XR chest 1V portable DATE OF EXAM: 03/28/2021 COMPARISON: 03/25/2021 INDICATION: Pleural effusion TECHNIQUE: Single frontal view of the chest is obtained. FINDINGS: The heart size is normal. The pulmonary vasculature is normal. There is opacification to the right. Pleural effusion is present. There is shift of mediastinum to th e right. Diffuse patchy infiltrates in the left lung previously is more focal left midlung. Findings are worsening over the interval. IMPRESSION: 1. Worsening right lung infiltrate and effusion. 2. Worsening left lung infiltrate
[2021-03-28] MEDS ORDERED: FLUCONAZOLE 100 MG TAB PO ONE (10:15)
[2021-03-28 11:03] LABS: Magnesium 2.2 mg/dL (1.5-2.4)
[2021-03-28 11:25] LABS: ALT 82 U/L (8-44); AST 71 U/L (13-35); African American GFR (CKD) 117.7 (60.0-200.0); Albumin 3.2 g/dL (3.8-4.9); Albumin/Globulin Ratio 1.88 (1.60-3.17); Alkaline Phosphatase 303 U/L (41-126); Bilirubin, Conjugated <0.20 mg/dL (0.20-0.40); Blood Urea Nitrogen 14.2 mg/dL (9.0-27.0); Calcium 8.6 mg/dL (8.7-10.3); Carbon Dioxide 34.8 mmol/L (20.0-27.5); Chloride 94 mmol/L (96-109); Globulin 1.7 g/dL (1.6-3.3); Glucose 155 mg/dL (70-110); Non-African American GFR(CKD) 101.6 (60.0-200.0); Potassium 5.4 mmol/L (3.5-5.5); Sodium 138 mmol/L (135-145); Total Protein 4.9 g/dL (6.2-8.2)
--- NOTE | 2021-03-28 12:01 | P.PN ---
Subjective Progress Note Date: 03/28/21 Patient still reports difficulty swallowing, plan for video swallow study today. Patient will be reevaluated by Dr. Shay for consideration of inpatient rehab. Pending NGS studies. Objective - Vital Signs Vital signs: Vital Signs Temp 97.4 F L 03/28/21 04:24 Pulse 80 03/28/21 11:52 Resp 20 03/28/21 04:24 BP 125/76 03/28/21 04:24 Pulse Ox 95 03/28/21 04:24 Intake & Output 03/27/21 03/28/21 03/28/21 18:59 06:59 18:59 Intake Total 236 250 Output Total 1000 Balance 236 -750 Intake: Oral 236 250 Output: Urine 1000 Other: Voiding Method Indwelling Catheter Indwelling Catheter Indwelling Catheter - Exam Gen: awake, alert, thin, cachectic HEENT: normocephalic, atraumatic, good hearing acuity, dry mucous membranes Resp: Diminished air exchange, breathing comfortably with no accessory muscle use CVS: good distal perfusion x 4, regular rate and rhythm GI: soft, NTTP, ND : no SPT, no CVAT, banegas catheter not present MSK: Bilateral lower extremity and left upper extremity pitting edema, no clubbing Neuro: non-focal, moving all extremities - Labs CBC & Chem 7: 03/28/21 04:58 03/28/21 04:58 Labs: Abnormal Lab Results - Last 24 Hours (Table) 03/28/21 03/28/21 Range/Units 04:58 04:58 WBC 16.5 H (3.8-10.6) k/uL Hct 47.1 H (34.0-46.0) % Neutrophils # 15.3 H (1.3-7.7) k/uL Lymphocytes # 0.3 L (1.0-4.8) k/uL Chloride 94 L (96-109) mmol/L Carbon Dioxide 34.8 H (20.0-27.5) mmol/L Anion Gap 9.20 L (10.00-18.00) mmol/L Creatinine 0.5 L (0.6-1.5) mg/dL BUN/Creatinine Ratio 28.40 H (12.00-20.00) Ratio Glucose 155 H (70-110) mg/dL Calcium 8.6 L (8.7-10.3) mg/dL Conjugated Bilirubin <0.20 L (0.20-0.40) mg/dL AST 71 H (13-35) U/L ALT 82 H (8-44) U/L Alkaline Phosphatase 303 H (41-126) U/L Total Protein 4.9 L (6.2-8.2) g/dL Albumin 3.2 L (3.8-4.9) g/dL Assessment and Plan Assessment: This is a 65-year-old female with no known past medical history that does not usually follow-up with any doctors presented to the emergency room with worsening shortness of breath and lower extremity edema. Patient had extensive workup in the ER with computed tomography scan of the chest showing bilateral lung consolidation/masses and bilateral pleural effusion. Computed tomography scan of the abdomen showing liver masses suspicious for metastatic disease with sclerotic metastasis into the sacrum and right ilium. Patient was admitted to the hospital for further management of her medical problems noted below. 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 Acute hypoxemic and hypercapnic respiratory failure, worsening Acute toxic metabolic encephalopathy, improving -Oncology consulted, following -Radiation oncology consulted -Pain control -PT consult -Oxygen when necessary -Nebulizers when necessary -Revisit goals of care, palliative consulted -zosyn, d/c'd completed 7 day course -CT of the neck with contrast -Vascular surgery consult Hyponatremia, mildly worse Severe protein calorie malnutrition, BMI 20 -Nutrition consult -Nephrology following -IVF -Continue to monitor BMP, magnesium -added mirtazipine for appetite -steroids for appetite -added standing reglan to improve nausea symptoms. Patient is presently full code DVT prophylaxis with enoxaparin
[2021-03-28] MEDS: NYSTATIN 100,000 UNIT/ML SUSP 500,000 UNIT/5 ML CUP PO SCH ×3 (14:31→20:41)
--- NOTE | 2021-03-28 15:57 | FL ---
EXAMINATION TYPE: FL barium swallow w video DATE OF EXAM: 03/28/2021 COMPARISON: NONE HISTORY: Dysphagia, pneumonia TECHNIQUE: Fluoroscopy. FINDINGS: Fluoroscopic guidance was provided for the procedure performed in conjunction with the [facility] pathology department. Please see complete report forthcoming from the Speech Pathology departmen t. Various consistencies from thin liquid to solids were administered. Fluoroscopy time 2 minutes 20 seconds. Number of images: 0. No aspiration or penetration was evident. Mild pooling was observed in the vallecula. There was delay in propulsion of the bolus. IMPRESSION: 1. No aspiration or penetration evident. 2. Some mild pooling within the vallecula
[2021-03-28] MEDS: LIDOCAINE 5% PATCH TOPICAL SCH (20:40)
[2021-03-28] MEDS: MELATONIN 5 MG TABLET PO PRN (20:41)
[2021-03-28] MEDS: MIRTAZAPINE 15 MG TAB PO SCH (20:41)
[2021-03-29] MEDS: ALPRAZolam 0.25 MG TAB PO SCH ×4 (00:11→12:17)
[2021-03-29 04:38] VITALS: RESP 16
[2021-03-29] MEDS: IPRATROPIUM-ALBUTEROL 3 ML NEB INHALATION SCH ×3 (07:14→15:30)
[2021-03-29] MEDS: NYSTATIN 100,000 UNIT/ML SUSP 500,000 UNIT/5 ML CUP PO SCH ×2 (08:14→12:17)
[2021-03-29] MEDS: ENOXAPARIN 40 MG/0.4 ML SYRINGE SQ SCH (08:15)
[2021-03-29] MEDS: traMADol-ACETAMINOP 37.5-325MG 1 EACH TAB PO PRN (08:16)
[2021-03-29] MEDS: dexAMETHasone 4 MG TAB PO SCH (08:17)
[2021-03-29] MEDS: METOCLOPRAMIDE 5 MG TAB PO SCH ×2 (08:18→12:17)
[2021-03-29 11:03] VITALS: BP 116/72; TEMP 98.1
--- NOTE | 2021-03-29 12:39 | P.PN ---
Progress Note - Text Asked to review patient's progress. PT reports moderate assistance for bed mobility minimal assistance for transfers and standing. Really unable take steps currently. OT reports minimal assistance for upper dressing and bathing and moderate assistance for lower dressing and toileting. Minimal assistance functional debility and transfers. Speech therapy reports planning swallow study to advance diet. Patient has in fact done better than anticipated. Patient was safety concerns and demonstrated ability tolerate and benefit from therapies. We'll except for inpatient rehab pending insurance authorization.
--- NOTE | 2021-03-29 13:14 | P.PN ---
Subjective Progress Note Date: 03/29/21 Principal diagnosis: new diagnosis lung ca Patient reports she is doing a bit better over the past couple days. Still having pain mainly in the buttocks and between shoulder blades - eccentric to the left. She states that this is under better control with current regimen. She has been able to sit up in a chair more. Still weak. Objective - Vital Signs Vital signs: Vital Signs Temp 97.3 F L 03/29/21 07:28 Pulse 81 03/29/21 07:28 Resp 16 03/29/21 07:28 BP 123/74 03/29/21 07:28 Pulse Ox 99 03/29/21 07:28 Intake & Output 03/28/21 03/29/21 03/29/21 18:59 06:59 18:59 Intake Total 550 600 Output Total 400 400 Balance 150 200 Weight 54.6 kg Intake: Oral 550 600 Output: Urine 400 400 Uretheral (Wood) 400 Other: Voiding Method Indwelling Catheter Indwelling Catheter Indwelling Catheter - Constitutional General appearance: Present: thin - EENT Eyes: Present: EOMI, PERRLA ENT: Present: hearing grossly normal - Neck Neck: Absent: lymphadenopathy - Respiratory Respiratory: right: diminished, left: CTA - Cardiovascular Rhythm: regular - Gastrointestinal General gastrointestinal: Absent: tenderness - Integumentary Integumentary: Absent: flushed, jaundiced - Neurologic Neurologic: Present: CNII-XII intact - Psychiatric Psychiatric: Present: appropriate affect, intact judgment & insight - Labs CBC & Chem 7: 03/28/21 04:58 03/28/21 04:58 Labs: Abnormal Lab Results - Last 24 Hours (Table) 03/28/21 Range/Units 04:58 Chloride 94 L (96-109) mmol/L Carbon Dioxide 34.8 H (20.0-27.5) mmol/L Anion Gap 9.20 L (10.00-18.00) mmol/L Creatinine 0.5 L (0.6-1.5) mg/dL BUN/Creatinine Ratio 28.40 H (12.00-20.00) Ratio Glucose 155 H (70-110) mg/dL Calcium 8.6 L (8.7-10.3) mg/dL Conjugated Bilirubin <0.20 L (0.20-0.40) mg/dL AST 71 H (13-35) U/L ALT 82 H (8-44) U/L Alkaline Phosphatase 303 H (41-126) U/L Total Protein 4.9 L (6.2-8.2) g/dL Albumin 3.2 L (3.8-4.9) g/dL Microbiology - Last 24 Hours (Table) 03/14/21 14:00 Acid Fast Bacilli Smear - Final Pleural Fluid Acid Fast Bacilli Culture - Preliminary 03/16/21 10:15 Acid Fast Bacilli Smear - Final Bronchial Washings - Right Acid Fast Bacilli Culture - Preliminary Assessment and Plan Assessment: 66 year old female with newly diagnosed metastatic adenocarcinoma of the right lung with malignant effusion and right upper lung collapse. She has evidence of bone and liver metastases as well. Lifetime non-smoker, awaiting NGS. Plan: 1. Pain - Patient reports better pain control with new regimen (Tylenol/Ultram). Still main area of pain is tailbone - reviewed imaging with radiology and although there are some sclerotic iliac lesions there are no midline sacral/lumbar lesions felt to be causing pain. More likely related to pressure from prolonged sitting. There are some small areas of metastasis in the upper T-spine. This could be contributing to her pain, although there is no evidence of fracture or canal invasion. I offered the patient a 1 fraction course of radiation. She stated her preference to control pain with medications for the time being. This is not unreasonable - she was also concerned about the positioning required for radiotherapy. We will hold off for the time being. 2. Metastatic adenocarcinoma of the lung - Awaiting NGS to determine next steps in therapy. Discharge to [facility] vs possible IPR. Time with Patient: Less than 30
--- NOTE | 2021-03-29 14:56 | P.DS ---
Providers Date of admission: 03/13/21 14:55 Expected date of discharge: 03/29/21 Attending physician: Ketan Cheung Consults: 03/13/21 14:56 Consult Physician Routine Consulting Provider: Noni Sutton Consult Reason/Comments: Large pleural effusion, lung mass Do you want consulting provider notified?: Already Contacted Consult Physician Routine Consulting Provider: Shauna Almanza Consult Reason/Comments: Hypona Do you want consulting provider notified?: Yes 03/13/21 16:14 Consult Physician Routine Consulting Provider: Taras Moon Consult Reason/Comments: Metastatic cancer of unknown origin Do you want consulting provider notified?: Yes 03/14/21 23:25 Consult Physician Stat Consulting Provider: Robert Donnelly Consult Reason/Comments: [employer] Do you want consulting provider notified?: Already Contacted 03/15/21 12:34 Consult Physician Routine Consulting Provider: Shauna Almanza Consult Reason/Comments: Hyponatremia/SIADH Do you want consulting provider notified?: Yes 03/18/21 11:52 Consult Physician Routine Consulting Provider: Jose De Jesus Shay Consult Reason/Comments: possible IPR Do you want consulting provider notified?: Yes 03/21/21 18:21 Consult Physician Routine Consulting Provider: Evan Carvajal Consult Reason/Comments: Palliaitive xrt Do you want consulting provider notified?: Yes 03/24/21 16:50 Consult Physician Urgent Consulting Provider: Brook Estevez Consult Reason/Comments: pleur-x catheter/recurrent malignant pleural effusion Do you want consulting provider notified?: Already Contacted 03/29/21 07:42 Consult Physician Stat Consulting Provider: Jose De Jesus Shay Consult Reason/Comments: please reeval for esther linton in pt rehab Do you want consulting provider notified?: Yes Primary care physician: [facility] Course: This is a 65-year-old female with no known past medical history that does not usually follow-up with any doctors presented to the emergency room with worsening shortness of breath and lower extremity edema. Patient had extensive workup in the ER with computed tomography scan of the chest showing bilateral lung consolidation/masses and bilateral pleural effusion. Computed tomography scan of the abdomen showing liver masses suspicious for metastatic disease with sclerotic metastasis into the sacrum and right ilium. Patient was admitted to the hospital for further management of her medical problems noted below. 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 Pulmonology followed along and did a thoracentesis as well as bronchoscopy with lavage and brushings which returned positive for lung adenocarcinoma in this never-smoker. Oncology consulted, following and ordered genetic send out testing which was pending at the time of discharge. Pt remained incredibliy weak during hospitalization, but medications were adjusted for pain, anxiety, and appetite. With these medications, patient's nutrition did improve. Near the end of her hospitalization, she did report some trouble swallowing and CT of the Neck and Chest showed some necrotic lymph nodes adjacent to the trachea, but no compression or mass effect. Video swallow showed intact coordination of swallow function, but with some residual in the vallecula. Pt did require a repeat thoracentesis due to worsening hypoxia at the 8 day jennifer from first thoracentesis, and had another 700cc pulled. Therefore, referral for CT surgery for consideration of pleurX was ordered, however, upon repeat US of the chest, patient did not build enough fluid by time of discharge to have pleurX placed, and this was deferred to outpatient. Similarly, radiation oncology was consulted for palliative radiation pain control, but this was deferred to the outpatient setting as well. Pt had post-obstructive pneumonia as a consequence of her adenocarcinoma compressing her RUL bronchus, and completed a course of zosyn in house. Patient was seen twice by PM&R for consideration of IPR, and was not a candidate at first, but given her significant improvement after acheiving pain control, nausea control, and repeat thoracentesis to improve lung capacity - patient was accepted to IPR to continue treatment while undergoing rehab. I spent 45 minutes coordinating this complex discharge Assessment: Gen: awake, alert, thin, cachectic HEENT: normocephalic, atraumatic, good hearing acuity, dry mucous membranes Resp: Diminished air exchange, breathing comfortably with no accessory muscle use CVS: good distal perfusion x 4, regular rate and rhythm GI: soft, NTTP, ND : no SPT, no CVAT, banegas catheter not present MSK: Bilateral lower extremity and left upper extremity pitting edema, no clubbing Neuro: non-focal, moving all extremities Patient Condition at Discharge: Good Plan - Discharge Summary Discharge Rx Participant: No New Discharge Prescriptions: New Ipratropium-Albuterol Nebulize [Duoneb 0.5 mg-3 mg/3 ml Soln] 3 ml INHALATION RT-QID ml Lidocaine 5% Patch [Lidoderm 5% Patch] 1 patch TOPICAL HS patch Enoxaparin [Lovenox] 40 mg SQ DAILY each Mag Hydrox/Al Hydrox/Simeth [Maalox] 30 ml PO Q4HR PRN ml PRN Reason: Gi Upset Nystatin 100,000 Unit/ml Susp [Mycostatin Oral Susp] 500,000 unit PO QID ml Mirtazapine [Remeron] 7.5 mg PO HS #15 tab traMADol-ACETAMINOP 37.5-325MG [Ultracet] 1 each PO Q4HR PRN #30 tab PRN Reason: Pain ALPRAZolam [Xanax] 0.25 mg PO Q6H #120 tab Ipratropium-Albuterol Nebulize [Duoneb 0.5 mg-3 mg/3 ml Soln] 3 ml INHALATION RT-Q2H PRN ml PRN Reason: Shortness Of Breath Or Wheezing dexAMETHasone ORAL [Hexadrol] 4 mg PO BID #60 tab Melatonin 5 mg PO HS PRN tablet PRN Reason: Insomnia Metoclopramide [Reglan] 5 mg PO AC-TID #90 tab Acetaminophen Tab [Tylenol] 650 mg PO Q6HR PRN tab PRN Reason: Mild Pain Or Fever > 100.5 Discharge Medication List ALPRAZolam [Xanax] 0.25 mg PO Q6H #120 tab 03/29/21 [Rx] Acetaminophen Tab [Tylenol] 650 mg PO Q6HR PRN tab 03/29/21 [Rx] Enoxaparin [Lovenox] 40 mg SQ DAILY each 03/29/21 [Rx] Ipratropium-Albuterol Nebulize [Duoneb 0.5 mg-3 mg/3 ml Soln] 3 ml INHALATION RT-Q2H PRN ml 03/29/21 [Rx] Ipratropium-Albuterol Nebulize [Duoneb 0.5 mg-3 mg/3 ml Soln] 3 ml INHALATION RT-QID ml 03/29/21 [Rx] Lidocaine 5% Patch [Lidoderm 5% Patch] 1 patch TOPICAL HS patch 03/29/21 [Rx] Mag Hydrox/Al Hydrox/Simeth [Maalox] 30 ml PO Q4HR PRN ml 03/29/21 [Rx] Melatonin 5 mg PO HS PRN tablet 03/29/21 [Rx] Metoclopramide [Reglan] 5 mg PO AC-TID #90 tab 03/29/21 [Rx] Mirtazapine [Remeron] 7.5 mg PO HS #15 tab 03/29/21 [Rx] Nystatin 100,000 Unit/ml Susp [Mycostatin Oral Susp] 500,000 unit PO QID ml 03/29/21 [Rx] dexAMETHasone ORAL [Hexadrol] 4 mg PO BID #60 tab 03/29/21 [Rx] traMADol-ACETAMINOP 37.5-325MG [Ultracet] 1 each PO Q4HR PRN #30 tab 03/29/21 [Rx] Follow up Appointment(s)/Referral(s): Trista Perez MD [Primary Care Provider] - 1-2 days [facility], [NON-STAFF] - 1 Week Taras Moon MD [STAFF PHYSICIAN] - 03/22/21 5:00 pm Discharge/Stand Alone Forms: [employer] Discharge Disposition: DC/TRNS INTERMEDIATE CARE FAC
[2021-03-29 15:33] VITALS: PULSE 88
== END 2021-03-29 16:30 | DRG 208 ==
LOC: EC 11:52 → 3SCARD 14:55 → 2SICU 03-14 23:23 → 5NMEDONC 03-19 22:03
PROVIDERS: ADMIT Internal Medicine; ATTEND Internal Medicine
PROC: 0W993ZZ Drainage of Right Pleural Cavity, Percutaneous Approach (ICD-10-PCS; 2021-03-14)
PROC: 0B9C8ZX Drainage of Right Upper Lung Lobe, Via Natural or Artificial Opening Endoscopic, Diagnostic (ICD-10-PCS; 2021-03-15)
PROC: 0BD48ZX Extraction of Right Upper Lobe Bronchus, Via Natural or Artificial Opening Endoscopic, Diagnostic (ICD-10-PCS; 2021-03-15)
PROC: 5A1945Z Respiratory Ventilation, 24-96 Consecutive Hours (ICD-10-PCS; principal; 2021-03-15 10:30)
PROC: 0BB48ZX Excision of Right Upper Lobe Bronchus, Via Natural or Artificial Opening Endoscopic, Diagnostic (ICD-10-PCS; 2021-03-15 10:30)
PROC: 0BH17EZ Insertion of Endotracheal Airway into Trachea, Via Natural or Artificial Opening (ICD-10-PCS; 2021-03-15 10:30)
PROC: 5A0945A Assistance with Respiratory Ventilation, 24-96 Consecutive Hours, High Flow/Velocity Cannula (ICD-10-PCS; 2021-03-23)
DX: C34.11 Malignant neoplasm of upper lobe, right bronchus or lung (principal); E43 Unspecified severe protein-calorie malnutrition; G92.8 Other toxic encephalopathy; J96.21 Acute and chronic respiratory failure with hypoxia; J96.22 Acute and chronic respiratory failure with hypercapnia; J18.8 Other pneumonia, unspecified organism; C34.91 Malignant neoplasm of unspecified part of right bronchus or lung; C78.7 Secondary malignant neoplasm of liver and intrahepatic bile duct; C79.51 Secondary malignant neoplasm of bone; E22.2 Syndrome of inappropriate secretion of antidiuretic hormone; E87.4 Mixed disorder of acid-base balance; I87.1 Compression of vein; J44.0 Chronic obstructive pulmonary disease with (acute) lower respiratory infection; J91.0 Malignant pleural effusion; J98.11 Atelectasis; Z68.20 Body mass index [BMI] 20.0-20.9, adult; E86.9 Volume depletion, unspecified; Z20.822 Contact with and (suspected) exposure to COVID-19; E87.70 Fluid overload, unspecified; E87.8 Other disorders of electrolyte and fluid balance, not elsewhere classified; F41.9 Anxiety disorder, unspecified; I27.20 Pulmonary hypertension, unspecified; J98.01 Acute bronchospasm; R13.10 Dysphagia, unspecified; T40.605A Adverse effect of unspecified narcotics, initial encounter; Z51.5 Encounter for palliative care; Z80.0 Family history of malignant neoplasm of digestive organs; Z82.49 Family history of ischemic heart disease and other diseases of the circulatory system; Z83.3 Family history of diabetes mellitus
CPT/HCPCS: 31623; 31624; 31625; 32555; 36415; 36600; 70491; 70553; 71045; 71046; 71260; 71275; 74177; 74230; 76604; 78306; 80048; 80053; 80076; 80202; 81003; 82805; 82945; 83605; 83615; 83735; 83880; 83935; 84145; 84157; 84295; 84484; 85025; 85610; 85730; 87040; 87070; 87075; 87102; 87116; 87205; 87206; 87635; 88104; 88108; 88305; 88341; 88342; 89050; 93005; 93306; 93970; 94002; 94003; 94640; 94660; 94760; 96365; 96368; 99285

== ENCOUNTER 2021-04-18 16:31 | Inpatient (IN) | payer MEDICARE ==
[2021-04-18] MEDS ORDERED: IPRATROPIUM-ALBUTEROL 3 ML NEB INHALATION STA (16:41)
[2021-04-18] MEDS ORDERED: methylPREDNISolone SOD SUCCI 125 MG/2 ML VIAL IV STA (16:41)
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
[2021-04-18 16:56] LABS: Basophils # (A) 0.1 k/uL (0-0.2); Basophils % (A) 0 %; Eosinophils # (A) 0.2 k/uL (0-0.7); Eosinophils % (A) 1 %; HCT 38.3 % (34.0-46.0); HGB 11.9 gm/dL (11.4-16.0); Hypochromasia Slight; Lymphocytes # (A) 0.8 k/uL (1.0-4.8); Lymphocytes % (A) 3 %; MCH 31.8 pg (25.0-35.0); MCV 102.3 fL (80.0-100.0); Macrocytosis Slight; Mean Platelet Volume 8.3; Monocytes # (A) 1.1 k/uL (0-1.0); Monocytes % (A) 4 %; Neutrophils % (A) 91 %; RBC 3.74 m/uL (3.80-5.40); RDW 13.8 % (11.5-15.5); WBC 25.5 k/uL (3.8-10.6)
[2021-04-18 17:09] LABS: Platelet Count 47 k/uL (150-450); Polychromasia Present
[2021-04-18 17:16] LABS: INR 1.4 (<1.2); Prothrombin Time 14.3 sec (9.0-12.0)
[2021-04-18 17:32] LABS: ABG Base Excess 14.7 mmol/L; ABG Oxygen Saturation 99.3 % (94-97); ABG PH 7.31 (7.35-7.45); ABG PO2 147 mmHg (83-108); ABG TCO2 44 mmol/L (19-24); Allen Test Performed? Yes
[2021-04-18 17:47] LABS: ABG HCO3 41 mmol/L (21-25); ABG PCO2 83 mmHg (35-45)
[2021-04-18 17:51] LABS: ALT 87 U/L (4-34); AST 67 U/L (14-36); African American GFR (CKD) >90 (>60 ml/min/1.73 sqM); Albumin 3.2 g/dL (3.5-5.0); Alkaline Phosphatase 713 U/L (38-126); Anion Gap 4 mmol/L; Blood Urea Nitrogen 50 mg/dL (7-17); Calcium 8.1 mg/dL (8.4-10.2); Carbon Dioxide 39 mmol/L (22-30); Chloride 89 mmol/L (98-107); Glucose 145 mg/dL (74-99); Non-African American GFR(CKD) >90 (>60 ml/min/1.73 sqM); Sodium 132 mmol/L (137-145); Total Bilirubin 1.5 mg/dL (0.2-1.3); Total Protein 5.8 g/dL (6.3-8.2)
[2021-04-18 17:55] LABS: Potassium 5.9 mmol/L (3.5-5.1)
--- NOTE | 2021-04-18 18:15 | XR ---
EXAMINATION TYPE: XR chest 1V portable DATE OF EXAM: 04/18/2021 COMPARISON: 03/28/2021 HISTORY: Short of breath TECHNIQUE: 2 views FINDINGS: There is significant opacification right hemithorax. There is diffuse pulmonary interstitia l edema in the left lung. Trachea is deviated slightly to the right side. IMPRESSION: There is extensive consolidation and pleural fluid and volume loss in the right hemithora x which has progressed slightly compared to old exam. There is diffuse interstitial edema in the left lung not significantly different.
[2021-04-18] MEDS ORDERED: IPRATROPIUM-ALBUTEROL 3 ML NEB INHALATION PRN (19:13)
[2021-04-18] MEDS ORDERED: LEVOFLOXACIN 750MG-D5W PMX 750 MG in DEXTROSE/WATER 1 150ML.BAG IVPB STA (19:15)
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
[2021-04-18] MEDS ORDERED: PIPERACILLIN-TAZOBACTAM 3.375 GM in SODIUM CHLORIDE 0.9% 100 ML IVPB STA (20:39)
[2021-04-18] MEDS: SODIUM CHLORIDE 0.9% 1,000 ML IV SCH (20:39)
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
[2021-04-18] MEDS ORDERED: POTASSIUM CHLORIDE ER 20 MEQ TAB.ER PO SCH (21:00)
[2021-04-18] MEDS: APIXABAN 2.5 MG TABLET PO SCH (21:46)
[2021-04-18] MEDS: SENNOSIDES-DOCUSATE SODIUM 1 EACH TAB PO SCH (21:47)
[2021-04-18] MEDS: NYSTATIN 100,000 UNIT/ML SUSP 500,000 UNIT/5 ML CUP PO SCH (22:09)
[2021-04-18 23:46] LABS: ABG Base Excess 14.1 mmol/L; ABG PH 7.34 (7.35-7.45); ABG PO2 212 mmHg (83-108); ABG TCO2 42 mmol/L (19-24); Allen Test Performed? Yes
[2021-04-18 23:51] LABS: ABG HCO3 40 mmol/L (21-25); ABG PCO2 73 mmHg (35-45)
[2021-04-19] MEDS: PIPERACILLIN-TAZOBACTAM 3.375 GM in SODIUM CHLORIDE 0.9% 100 ML IVPB SCH ×3 (00:35→17:47)
[2021-04-19] MEDS ORDERED: KETOROLAC 15 MG/ML 1 ML VIAL IVP STA (01:16)
[2021-04-19] MEDS: methylPREDNISolone SOD SUCCI 125 MG/2 ML VIAL IV SCH ×5 (01:45→23:54)
[2021-04-19] MEDS: IPRATROPIUM-ALBUTEROL 3 ML NEB INHALATION SCH ×6 (02:40→19:52)
[2021-04-19] MEDS: SODIUM CHLORIDE 0.9% 1,000 ML IV SCH ×2 (05:44→17:47)
[2021-04-19 05:56] LABS: Glucose,Whole Blood 117 mg/dL (75-99)
[2021-04-19 09:01] LABS: Basophils # (A) 0.1 k/uL (0-0.2); Basophils % (A) 0 %; Eosinophils # (A) 0.1 k/uL (0-0.7); Eosinophils % (A) 0 %; HGB 10.4 gm/dL (11.4-16.0); Hypochromasia Slight; Lymphocytes # (A) 0.4 k/uL (1.0-4.8); Lymphocytes % (A) 2 %; MCH 32.1 pg (25.0-35.0); MCHC 31.7 g/dL (31.0-37.0); MCV 101.3 fL (80.0-100.0); Macrocytosis Slight; Mean Platelet Volume 8.8; Monocytes # (A) 0.7 k/uL (0-1.0); Monocytes % (A) 3 %; Neutrophils # (A) 19.7 k/uL (1.3-7.7); Neutrophils % (A) 94 %; RBC 3.26 m/uL (3.80-5.40); RDW 14.1 % (11.5-15.5)
[2021-04-19 09:03] LABS: Albumin 2.9 g/dL (3.5-5.0); Calcium 7.3 mg/dL (8.4-10.2); Potassium 5.6 mmol/L (3.5-5.1); Total Protein 5.4 g/dL (6.3-8.2)
[2021-04-19 09:11] LABS: Platelet Count 35 k/uL (150-450)
[2021-04-19] MEDS ORDERED: SODIUM POLYSTYRENE SULFONATE 15 GM/60 ML BOTTLE PO STA (09:19)
[2021-04-19] MEDS: NYSTATIN 100,000 UNIT/ML SUSP 500,000 UNIT/5 ML CUP PO SCH ×4 (10:14→20:17)
[2021-04-19] MEDS: KETOROLAC 30 MG/ML 1 ML VIAL IVP SCH ×3 (10:14→17:43)
[2021-04-19] MEDS: APIXABAN 2.5 MG TABLET PO SCH ×3 (10:16→20:17)
[2021-04-19] MEDS ORDERED: MORPHINE SULFATE 2 MG/ML SYRINGE IVP STA (10:23)
[2021-04-19] MEDS: SENNOSIDES-DOCUSATE SODIUM 1 EACH TAB PO SCH ×2 (10:30→20:17)
--- NOTE | 2021-04-19 11:25 | US ---
EXAMINATION TYPE: US chest DATE OF EXAM: 04/19/2021 COMPARISON: CXR from yesterday. CLINICAL HISTORY: right pleural effusion-assess for fluid pocket. Assess for pleural effusion TECHNIQUE: Targeted ultrasound of the posterior lower bilateral hemithoraces EXAM MEASUREMENTS: Right side NOT marked for possible thoracentesis outside the dept. Left side NOT marked for possible thoracentesis outside the dept. Pulmonologists are able to review the images in the patient?s EMR. IMPRESSIONS: No significant pulmonary effusion on images saved particularly right lower lung.
[2021-04-19 11:39] LABS: Glucose,Whole Blood 125 mg/dL (75-99)
[2021-04-19] MEDS: GABAPENTIN 100 MG CAP PO SCH ×2 (12:57→20:17)
--- NOTE | 2021-04-19 13:28 | P.PN ---
Subjective Progress Note Date: 04/19/21 Principal diagnosis: Initially patient was seen at bedside on BiPAP. Patient's family is at bedside. Oncology had a thorough discussion regarding comfort measures. However, CODE STATUS has yet to be changed. Patient is currently on 10 L high flow. She admits to pain in her feet. Patient is alert and awake. Patient is also coherent. Objective - Vital Signs Vital signs: Vital Signs Temp 98.2 F 04/19/21 12:00 Pulse 102 H 04/19/21 12:20 Resp 28 H 04/19/21 12:00 BP 98/60 04/19/21 12:00 Pulse Ox 95 04/19/21 12:20 Intake & Output 04/18/21 04/19/21 04/19/21 18:59 06:59 18:59 Weight 47.174 kg 47.174 kg Other: Voiding Method Diaper - Exam General: [non toxic], [no distress], [appears at stated age] Derm: [warm], [dry] Head: [atraumatic], [normocephalic], [symmetric] Eyes: [EOMI], [no lid lag], [anicteric sclera] Mouth: [no lip lesion], [mucus membranes moist] Cardiovascular: [tachycardia], [no murmur], [positive posterior tibial pulse bilateral], Lungs: [Bilateral crackles] , [no accessory muscle use] Abdominal: [soft], [ nontender to palpation], [no guarding], [no appreciable organomegaly] Ext: [no gross muscle atrophy], [no edema], [no contractures] Neuro: [ CN II-XI grossly intact], [no focal neuro deficits] Psych: [Alert], [oriented], [appropriate affect] - Labs CBC & Chem 7: 04/19/21 08:17 04/19/21 08:17 Labs: Abnormal Lab Results - Last 24 Hours (Table) 04/18/21 04/18/21 04/18/21 Range/Units 16:46 16:46 16:46 WBC 25.5 H (3.8-10.6) k/uL RBC 3.74 L (3.80-5.40) m/uL Hgb (11.4-16.0) gm/dL Hct (34.0-46.0) % MCV 102.3 H (80.0-100.0) fL Plt Count 47 L D (150-450) k/uL Neutrophils # 23.0 H (1.3-7.7) k/uL Lymphocytes # 0.8 L (1.0-4.8) k/uL Monocytes # 1.1 H (0-1.0) k/uL PT 14.3 H (9.0-12.0) sec INR 1.4 H (<1.2) ABG pH (7.35-7.45) ABG pCO2 (35-45) mmHg ABG pO2 (83-108) mmHg ABG HCO3 (21-25) mmol/L ABG Total CO2 (19-24) mmol/L ABG O2 Saturation (94-97) % Sodium 132 L (137-145) mmol/L Potassium 5.9 H (3.5-5.1) mmol/L Chloride 89 L (98-107) mmol/L Carbon Dioxide 39 H (22-30) mmol/L BUN 50 H (7-17) mg/dL Creatinine (0.52-1.04) mg/dL Glucose 145 H (74-99) mg/dL POC Glucose (mg/dL) (75-99) mg/dL Calcium 8.1 L (8.4-10.2) mg/dL Total Bilirubin 1.5 H (0.2-1.3) mg/dL AST 67 H (14-36) U/L ALT 87 H (4-34) U/L Alkaline Phosphatase 713 H (38-126) U/L Total Protein 5.8 L (6.3-8.2) g/dL Albumin 3.2 L (3.5-5.0) g/dL 04/18/21 04/18/21 04/19/21 Range/Units 17:28 23:50 05:44 WBC (3.8-10.6) k/uL RBC (3.80-5.40) m/uL Hgb (11.4-16.0) gm/dL Hct (34.0-46.0) % MCV (80.0-100.0) fL Plt Count (150-450) k/uL Neutrophils # (1.3-7.7) k/uL Lymphocytes # (1.0-4.8) k/uL Monocytes # (0-1.0) k/uL PT (9.0-12.0) sec INR (<1.2) ABG pH 7.31 L 7.34 L (7.35-7.45) ABG pCO2 83 H* 73 H* (35-45) mmHg ABG pO2 147 H 212 H (83-108) mmHg ABG HCO3 41 H* 40 H* (21-25) mmol/L ABG Total CO2 44 H 42 H (19-24) mmol/L ABG O2 Saturation 99.3 H 100.0 H (94-97) % Sodium (137-145) mmol/L Potassium (3.5-5.1) mmol/L Chloride (98-107) mmol/L Carbon Dioxide (22-30) mmol/L BUN (7-17) mg/dL Creatinine (0.52-1.04) mg/dL Glucose (74-99) mg/dL POC Glucose (mg/dL) 117 H (75-99) mg/dL Calcium (8.4-10.2) mg/dL Total Bilirubin (0.2-1.3) mg/dL AST (14-36) U/L ALT (4-34) U/L Alkaline Phosphatase (38-126) U/L Total Protein (6.3-8.2) g/dL Albumin (3.5-5.0) g/dL 04/19/21 04/19/21 04/19/21 Range/Units 08:17 08:17 11:25 WBC 21.0 H (3.8-10.6) k/uL RBC 3.26 L (3.80-5.40) m/uL Hgb 10.4 L (11.4-16.0) gm/dL Hct 33.0 L (34.0-46.0) % MCV 101.3 H (80.0-100.0) fL Plt Count 35 L (150-450) k/uL Neutrophils # 19.7 H (1.3-7.7) k/uL Lymphocytes # 0.4 L (1.0-4.8) k/uL Monocytes # (0-1.0) k/uL PT (9.0-12.0) sec INR (<1.2) ABG pH (7.35-7.45) ABG pCO2 (35-45) mmHg ABG pO2 (83-108) mmHg ABG HCO3 (21-25) mmol/L ABG Total CO2 (19-24) mmol/L ABG O2 Saturation (94-97) % Sodium 134 L (137-145) mmol/L Potassium 5.6 H (3.5-5.1) mmol/L Chloride 91 L (98-107) mmol/L Carbon Dioxide 38 H (22-30) mmol/L BUN 69 H (7-17) mg/dL Creatinine 1.06 H (0.52-1.04) mg/dL Glucose 131 H (74-99) mg/dL POC Glucose (mg/dL) 125 H (75-99) mg/dL Calcium 7.3 L (8.4-10.2) mg/dL Total Bilirubin 2.0 H (0.2-1.3) mg/dL AST 75 H (14-36) U/L ALT 78 H (4-34) U/L Alkaline Phosphatase 739 H (38-126) U/L Total Protein 5.4 L (6.3-8.2) g/dL Albumin 2.9 L (3.5-5.0) g/dL Assessment and Plan Assessment: Acute hypoxic and hypercapnic respiratory failure, suspected multifactorial, with stage IV lung cancer, COPD, and superimposed infection -Pulmonary recommendations appreciated -Continue high flow -Continue with IV Levaquin and Zosyn at this time -Continue Solu-Medrol, DuoNeb's -Oncology recommendations appreciated -Prognosis is poor Acute toxic metabolic encephalopathy improved -Likely multifactorial in setting of hypercapnia and infection Acute kidney injury with dehydration improved -Continue IV fluids -Follow up BMP Thrombocytopenia -Suspected secondary to ongoing malignancy with suspected infection -Continue with above management Hypochloremic hyponatremia -Suspected due to poor oral intake -IV fluids Severe protein calorie malnutrition -Phd Internship consult DVT prophylaxis -Janie The patient is admitted with an anticipated greater than 2 midnight stay for evaluation of respiratory failure CODE STATUS: Full Code (Discussed the patient's goals of care with family at the bedside who noted that in light of the patient being a candidate for targeted therapy that they wish to pursue all interventions at this time including intu bation and CPR.) Discussed with: Patient Anticipated discharge date: Unclear Anticipated discharge place: Home/[facility]
[2021-04-19 13:41] VITALS: BMI 17.3
--- NOTE | 2021-04-19 13:45 | P.PN ---
Subjective Progress Note Date: 04/19/21 04/19/2021, the patient is being seen for a follow-up . The patient was seen in the [facility] emergency ment yesterday for respiratory failure and the patient currently is on a BiPAP at the same settings of 12/6 cm of water with an FiO2 of 35 %. She is still struggling to breathe. She is quite significant leg. She generally ambulates tidal volumes of around 280. Her respiratory rate is in the low 30s.. Family the bedside trying to control her that that the medication. Noted earlier, the patient was on FiO2 and the subsequent blood gases showed a pH of 7.34 with a pH of 73 and pO2 of 212 and this was on FiO2 of 85% and subsequently the FiO2 was not down to 35%. The patient subsequently was tried on high flow oxygen. Pulse ox is currently is in the low 90s. She is lethargic and somewhat obtunded. Ultrasound the chest was done and there is no sizable pleural effusion. The patient remains on broad-spectrum antibiotics. The patient remains on a Zosyn and Levaquin. The patient is on IV Solu-Medrol 60 mg every 6 hours. White cell count is at 21 with a hemoglobin of 10.4. BUN and cr eatinine of 1.06 and the sodium level of 134 with a potassium level of 5.6. COVID 19 testing was negative. Care is ready for further recommendations for the family for comfort care measures. The family is still hopeful that significant "thing changes around with targeted treatment that was offered to them by oncology. Objective - Vital Signs Vital signs: Vital Signs Temp 98.2 F 04/19/21 12:00 Pulse 102 H 04/19/21 12:20 Resp 28 H 04/19/21 12:00 BP 98/60 04/19/21 12:00 Pulse Ox 95 04/19/21 12:20 Intake & Output 04/18/21 04/19/21 04/19/21 18:59 06:59 18:59 Weight 47.174 kg 47.174 kg Other: Voiding Method Diaper - Exam General appearance: cachectic, drowsy, lethargic, confused, currently lethargic, weak, on and off confused and still having respiratory distress at 10 L of oxygen by nasal cannula and she has been taken off the BiPAP. Head exam: Present: atraumatic Eye exam: Present: normal appearance ENT exam: Present: normal oropharynx Neck exam: Present: normal inspection Respiratory exam: Present: respiratory distress, wheezes, absent breath sounds on the right compared to the left. Diminished breath on the left along with bronchospasm wheezing Cardiovascular Exam: Cardiac exam revealed the PMI to be normally situated and sized. The rhythm was regular and no extrasystoles were noted during several minutes of auscultation. The first and second heart sounds were normal and physiologic splitting of the second heart sound was noted. There were no mu rmurs, rubs, clicks, or gallops. GI/Abdominal exam: Present: soft, distended (Mildly distended). Absent: tenderness Extremities exam: Present: normal inspection. Absent: pedal edema, calf tenderness Neurological exam: Lethargic, moving all 4 extremities, unable to assess motor and sensory functions, no facial asymmetry obtunded, Psychiatric exam: Unable to obtain Skin exam: Present: normal color - Labs CBC & Chem 7: 04/19/21 08:17 04/19/21 08:17 Labs: Abnormal Lab Results - Last 24 Hours (Table) 04/18/21 04/18/21 04/18/21 Range/Units 16:46 16:46 16:46 WBC 25.5 H (3.8-10.6) k/uL RBC 3.74 L (3.80-5.40) m/uL Hgb (11.4-16.0) gm/dL Hct (34.0-46.0) % MCV 102.3 H (80.0-100.0) fL Plt Count 47 L D (150-450) k/uL Neutrophils # 23.0 H (1.3-7.7) k/uL Lymphocytes # 0.8 L (1.0-4.8) k/uL Monocytes # 1.1 H (0-1.0) k/uL PT 14.3 H (9.0-12.0) sec INR 1.4 H (<1.2) ABG pH (7.35-7.45) ABG pCO2 (35-45) mmHg ABG pO2 (83-108) mmHg ABG HCO3 (21-25) mmol/L ABG Total CO2 (19-24) mmol/L ABG O2 Saturation (94-97) % Sodium 132 L (137-145) mmol/L Potassium 5.9 H (3.5-5.1) mmol/L Chloride 89 L (98-107) mmol/L Carbon Dioxide 39 H (22-30) mmol/L BUN 50 H (7-17) mg/dL Creatinine (0.52-1.04) mg/dL Glucose 145 H (74-99) mg/dL POC Glucose (mg/dL) (75-99) mg/dL Calcium 8.1 L (8.4-10.2) mg/dL Total Bilirubin 1.5 H (0.2-1.3) mg/dL AST 67 H (14-36) U/L ALT 87 H (4-34) U/L Alkaline Phosphatase 713 H (38-126) U/L Total Protein 5.8 L (6.3-8.2) g/dL Albumin 3.2 L (3.5-5.0) g/dL 04/18/21 04/18/21 04/19/21 Range/Units 17:28 23:50 05:44 WBC (3.8-10.6) k/uL RBC (3.80-5.40) m/uL Hgb (11.4-16.0) gm/dL Hct (34.0-46.0) % MCV (80.0-100.0) fL Plt Count (150-450) k/uL Neutrophils # (1.3-7.7) k/uL Lymphocytes # (1.0-4.8) k/uL Monocytes # (0-1.0) k/uL PT (9.0-12.0) sec INR (<1.2) ABG pH 7.31 L 7.34 L (7.35-7.45) ABG pCO2 83 H* 73 H* (35-45) mmHg ABG pO2 147 H 212 H (83-108) mmHg ABG HCO3 41 H* 40 H* (21-25) mmol/L ABG Total CO2 44 H 42 H (19-24) mmol/L ABG O2 Saturation 99.3 H 100.0 H (94-97) % Sodium (137-145) mmol/L Potassium (3.5-5.1) mmol/L Chloride (98-107) mmol/L Carbon Dioxide (22-30) mmol/L BUN (7-17) mg/dL Creatinine (0.52-1.04) mg/dL Glucose (74-99) mg/dL POC Glucose (mg/dL) 117 H (75-99) mg/dL Calcium (8.4-10.2) mg/dL Total Bilirubin (0.2-1.3) mg/dL AST (14-36) U/L ALT (4-34) U/L Alkaline Phosphatase (38-126) U/L Total Protein (6.3-8.2) g/dL Albumin (3.5-5.0) g/dL 04/19/21 04/19/21 04/19/21 Range/Units 08:17 08:17 11:25 WBC 21.0 H (3.8-10.6) k/uL RBC 3.26 L (3.80-5.40) m/uL Hgb 10.4 L (11.4-16.0) gm/dL Hct 33.0 L (34.0-46.0) % MCV 101.3 H (80.0-100.0) fL Plt Count 35 L (150-450) k/uL Neutrophils # 19.7 H (1.3-7.7) k/uL Lymphocytes # 0.4 L (1.0-4.8) k/uL Monocytes # (0-1.0) k/uL PT (9.0-12.0) sec INR (<1.2) ABG pH (7.35-7.45) ABG pCO2 (35-45) mmHg ABG pO2 (83-108) mmHg ABG HCO3 (21-25) mmol/L ABG Total CO2 (19-24) mmol/L ABG O2 Saturation (94-97) % Sodium 134 L (137-145) mmol/L Potassium 5.6 H (3.5-5.1) mmol/L Chloride 91 L (98-107) mmol/L Carbon Dioxide 38 H (22-30) mmol/L BUN 69 H (7-17) mg/dL Creatinine 1.06 H (0.52-1.04) mg/dL Glucose 131 H (74-99) mg/dL POC Glucose (mg/dL) 125 H (75-99) mg/dL Calcium 7.3 L (8.4-10.2) mg/dL Total Bilirubin 2.0 H (0.2-1.3) mg/dL AST 75 H (14-36) U/L ALT 78 H (4-34) U/L Alkaline Phosphatase 739 H (38-126) U/L Total Protein 5.4 L (6.3-8.2) g/dL Albumin 2.9 L (3.5-5.0) g/dL Assessment and Plan Plan: 1 acute hypoxic/hypercapnic respiratory failure, multifactorial. The patient has COPD and metastatic adenocarcinoma of the lung with malignant right-sided pleural effusion, right upper lobe mass and the right infrahilar mass along with mass effect on the right lung with partial/near complete atelectasis of the right lung. The patient is currently on BiPAP. Breathing is quite labored. It could be also the potential superinfection and for that reason the patient was covered with broad-spectrum antibiotics. The patient also covered with high- dose steroids 2 metastatic adenocarcinoma of the lung, EGFR positive 3 malignant right-sided pleural effusion, malignant, post previous thoracentesis indicated malignant right-sided pleural effusion. 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 Plan Keep the patient on a combination of Zosyn and Levaquin and IV Solu-Medrol. Continue bronchodilators with DuoNeb nebulized treatments around the clock 4 times a day DVT and GI prophylaxis Blood cultures, pending Family is very much in about targeted therapy hours EGFR-positive adenocarcinoma. For that reason they want full support. Reviewed ultrasound of the chest and there is no sizable pleural effusion. I do not think there is any role for bronchoscopy or any further intervention such as thoracentesis. Continue bronchodilators. Continue steroids. Intubate if needed. In my opinion, the patient has terminal cancer and the odds of her recovering from this and the patient carries a very high mortality. This information was delivered to the patient's family at the bedside. I feel that the expectation of the family and oncology team for treating this patient with targeted therapy and resulting in improving her condition is quite reasonable. I emphasized again the fact that the patient has a very poor baseline performance status and she is a very poor candidate for treatment. Likely decompensate over the next day. We will intubate if needed per family's wishes.
[2021-04-19] MEDS: MORPHINE SULFATE 2 MG/ML SYRINGE IVP PRN ×2 (16:42→20:18)
[2021-04-19 16:50] LABS: Glucose,Whole Blood 168 mg/dL (75-99)
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
[2021-04-19 20:00] LABS: Glucose,Whole Blood 187 mg/dL (75-99)
[2021-04-19] MEDS ORDERED: LEVOFLOXACIN 750MG-D5W PMX 750 MG in DEXTROSE/WATER 1 150ML.BAG IVPB SCH (21:00)
[2021-04-20] MEDS: MORPHINE SULFATE 2 MG/ML SYRINGE IVP PRN ×4 (00:16→13:09)
[2021-04-20] MEDS: KETOROLAC 30 MG/ML 1 ML VIAL IVP SCH ×3 (02:00→13:10)
[2021-04-20] MEDS: PIPERACILLIN-TAZOBACTAM 3.375 GM in SODIUM CHLORIDE 0.9% 100 ML IVPB SCH ×2 (02:11→08:29)
[2021-04-20 06:14] LABS: Glucose,Whole Blood 227 mg/dL (75-99)
[2021-04-20 06:18] VITALS: TEMP 97.9
[2021-04-20 06:22] VITALS: RESP 22
[2021-04-20] MEDS: SODIUM CHLORIDE 0.9% 1,000 ML IV SCH (08:22)
[2021-04-20] MEDS: SENNOSIDES-DOCUSATE SODIUM 1 EACH TAB PO SCH (08:23)
[2021-04-20] MEDS: methylPREDNISolone SOD SUCCI 125 MG/2 ML VIAL IV SCH ×2 (08:28→13:09)
[2021-04-20] MEDS: GABAPENTIN 100 MG CAP PO SCH (08:29)
[2021-04-20] MEDS: NYSTATIN 100,000 UNIT/ML SUSP 500,000 UNIT/5 ML CUP PO SCH (08:29)
[2021-04-20] MEDS: APIXABAN 2.5 MG TABLET PO SCH (08:29)
[2021-04-20] MEDS: IPRATROPIUM-ALBUTEROL 3 ML NEB INHALATION SCH ×2 (09:43→12:31)
[2021-04-20 11:44] LABS: Glucose,Whole Blood 191 mg/dL (75-99)
--- NOTE | 2021-04-20 12:31 | P.PN ---
Subjective Progress Note Date: 04/20/21 Dyspnea is mildly improved. Ongoing pain issues, most severe in the legs bilaterally. Her legs appear to be very cold, poorly perfused, non-dopplerable pulses bilaterally. Objective - Vital Signs Vital signs: Vital Signs Temp 97.9 F 04/20/21 04:00 Pulse 100 04/20/21 09:43 Resp 22 04/20/21 04:00 BP 102/67 04/20/21 04:00 Pulse Ox 97 04/20/21 04:00 Intake & Output 04/19/21 04/20/21 04/20/21 18:59 06:59 18:59 Weight 47.174 kg Other: Voiding Method Diaper Diaper # Voids 2 # Bowel Movements 2 2 - Exam Gen: awake, alert HEENT: normocephalic, atraumatic, good hearing acuity, moist mucous membranes Resp: good air exchange, breathing comfortably with no accessory muscle use CVS: good distal perfusion x 4, GI: soft, NTTP, ND : no SPT, no CVAT, banegas catheter not present MSK: Bilateral pitting edema, no clubbing, non-dopplerable pulses bilaterally, poor capillary Refill, early cyanosis Neuro: non-focal, moving all extremities - Labs CBC & Chem 7: 04/19/21 08:17 04/19/21 08:17 Labs: Abnormal Lab Results - Last 24 Hours (Table) 04/19/21 04/19/21 04/19/21 Range/Units 11:25 16:31 19:58 POC Glucose (mg/dL) 125 H 168 H 187 H (75-99) mg/dL 04/20/21 Range/Units 06:13 POC Glucose (mg/dL) 227 H (75-99) mg/dL Microbiology - Last 24 Hours (Table) 04/18/21 20:31 Blood Culture - Preliminary Blood No Growth after 24 hours Assessment and Plan Assessment: Acute hypoxic and hypercapnic respiratory failure, suspected multifactorial, with stage IV lung cancer, COPD, and superimposed infection -Pulmonary recommendations appreciated -Continue high flow -Continue with IV Levaquin and Zosyn at this time -Continue Solu-Medrol, DuoNeb's -Oncology recommendations appreciated -Prognosis is poor Poor perfusion to lower extremities -Vascular surgery consult -CT angiography Acute toxic metabolic encephalopathy improved -Likely multifactorial in setting of hypercapnia and infection Acute kidney injury with dehydration improved -Continue IV fluids -Follow up BMP Thrombocytopenia -Suspected secondary to ongoing malignancy with suspected infection -Continue with above management Hypochloremic hyponatremia -Suspected due to poor oral intake -IV fluids Severe protein calorie malnutrition -Balling Head Tender consult DVT prophylaxis -Janie The patient is admitted with an anticipated greater than 2 midnight stay for evaluation of respiratory failure CODE STATUS: Full Code (Discussed the patient's goals of care with family at the bedside who noted that in light of the patient being a candidate for targeted therapy that they wish to pursue all interventions at this time including intubation and CPR.) Discussed with: Patient Anticipated discharge date: Unclear Anticipated discharge place: Home/[facility]
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
--- NOTE | 2021-04-20 13:47 | P.PN ---
Subjective Progress Note Date: 04/20/21 04/19/2021, the patient is being seen for a follow-up . The patient was seen in the [facility] ment yesterday for respiratory failure and the patient currently is on a BiPAP at the same settings of 12/6 cm of water with an FiO2 of 35 %. She is still struggling to breathe. She is quite significant leg. She generally ambulates tidal volumes of around 280. Her respiratory rate is in the low 30s.. Family the bedside trying to control her that that the medication. Noted earlier, the patient was on FiO2 and the subsequent blood gases showed a pH of 7.34 with a pH of 73 and pO2 of 212 and this was on FiO2 of 85% and subsequently the FiO2 was not down to 35%. The patient subsequently was tried on high flow oxygen. Pulse ox is currently is in the low 90s. She is lethargic and somewhat obtunded. Ultrasound the chest was done and there is no sizable pleural effusion. The patient remains on broad-spectrum antibiotics. The patient remains on a Zosyn and Levaquin. The patient is on IV Solu-Medrol 60 mg every 6 hours. White cell count is at 21 with a hemoglobin of 10.4. BUN and cr eatinine of 1.06 and the sodium level of 134 with a potassium level of 5.6. COVID 19 testing was negative. Care is ready for further recommendations for the family for comfort care measures. The family is still hopeful that significant "thing changes around with targeted treatment that was offered to them by oncology. The patient continues to be significantly short of breath on D10 half liters of oxygen by nasal cannula. She was taken off the BiPAP. Family is opted to take this patient home with palliative care. No decisions on treatment has been made for now. Prognosis remains extremely poor. She seems to be slightly more coherent compared to yesterday. No new labs are available from today. Objective - Vital Signs Vital signs: Vital Signs Temp 97.9 F 04/20/21 04:00 Pulse 100 04/20/21 09:53 Resp 22 04/20/21 04:00 BP 102/67 04/20/21 04:00 Pulse Ox 97 04/20/21 04:00 Intake & Output 04/19/21 04/20/21 04/20/21 18:59 06:59 18:59 Weight 47.174 kg Other: Voiding Method Diaper Diaper # Voids 2 # Bowel Movements 2 2 - Exam General appearance: cachectic, drowsy, lethargic, confused, currently lethargic, weak, on and off confused and still having respiratory distress at 3l Head exam: Present: atraumatic Eye exam: Present: normal appearance ENT exam: Present: normal oropharynx Neck exam: Present: normal inspection Respiratory exam: Present: respiratory distress, wheezes, absent breath sounds on the right compared to the left. Diminished breath on the left along with bronchospasm wheezing Cardiovascular Exam: Cardiac exam revealed the PMI to be normally situated and sized. The rhythm was regular and no extrasystoles were noted during several minutes of auscultation. The first and second heart sounds were normal and physiologic splitting of the second heart sound was noted. There were no murmurs, rubs, clicks, or gallops. GI/Abdominal exam: Present: soft, distended (Mildly distended). Absent: tenderness Extremities exam: Present: normal inspection. Absent: pedal edema, calf tenderness Neurological exam: Lethargic, moving all 4 extremities, unable to assess motor and sensory functions, no facial asymmetry obtunded, Psychiatric exam: Unable to obtain Skin exam: Present: normal color - Labs CBC & Chem 7: 04/19/21 08:17 04/19/21 08:17 Labs: Abnormal Lab Results - Last 24 Hours (Table) 04/19/21 04/19/21 04/20/21 Range/Units 16:31 19:58 06:13 POC Glucose (mg/dL) 168 H 187 H 227 H (75-99) mg/dL 04/20/21 Range/Units 11:39 POC Glucose (mg/dL) 191 H (75-99) mg/dL Microbiology - Last 24 Hours (Table) 04/19/21 11:08 Blood Culture - Preliminary Blood No Growth after 24 hours 04/18/21 20:31 Blood Culture - Preliminary Blood No Growth after 24 hours Assessment and Plan Plan: 1 acute hypoxic/hypercapnic respiratory failure, multifactorial. The patient has COPD and metastatic adenocarcinoma of the lung with malignant right-sided pleural effusion, right upper lobe mass and the right infrahilar mass along with mass effect on the right lung with partial/near complete atelectasis of the right lung. The patient was currently on BiPAP. Breathing is quite labored. The patient has been weaned down to 3 L about 2 by nasal cannula. Breathing is still labored. Prognosis is extremely poor. 2 metastatic adenocarcinoma of the lung, EGFR positive 3 malignant right-sided pleural effusion, malignant, post previous thoracentesis indicated malignant right-sided pleural effusion. 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 Plan Keep the patient on a combination of Zosyn and Levaquin and IV Solu-Medrol. May switch this patient a prednisone burst taper at time of discharge along with a course of Augmentin Continue bronchodilators with DuoNeb nebulized treatments around the clock 4 times a day DVT and GI prophylaxis Family is very much in about targeted therapy hours EGFR-positive adenocarcinoma. For that reason they want full support. Reviewed ultrasound of the chest and there is no sizable pleural effusion. I do not think there is any role for bronchoscopy or any further intervention such as thoracentesis. Continue bronchodilators. Continue steroids. Intubate if needed. In my opinion, the patient has terminal cancer and the odds of her recovering from this and the patient carries a very high mortality. This information was delivered to the patient's family at the bedside. I feel that the expectation of the family and oncology team for treating this patient with targeted therapy and resulting in improving her condition is quite reasonable. I emphasized again the fact that the patient has a very poor baseline performance status and she is a very poor candidate for treatment. Likely decompensate in the future the patient will be probably going home with palliative care for now. The family still considering treatment as long as the drug is improved. I'm going to sign off the case.
[2021-04-20 15:11] VITALS: BP 99/63; PULSE 93
--- NOTE | 2021-04-20 15:26 | P.DS ---
Providers Date of admission: 04/18/21 19:13 Expected date of discharge: 04/20/21 Attending physician: Andrea Stone DO Consults: 04/18/21 19:03 Consult Physician Urgent Consulting Provider: Noni Sutton Consult Reason/Comments: dyspnea Do you want consulting provider notified?: Already Contacted 04/18/21 19:13 Consult Physician Routine Consulting Provider: Taras Moon Consult Reason/Comments: lung ca Do you want consulting provider notified?: Yes 04/20/21 11:19 Consult Physician Urgent Consulting Provider: Jake Middleton Consult Reason/Comments: Non-dopplerable pulses in feet bilaterally with cyanosis on right Do you want consulting provider notified?: Yes [facility]: Acute hypoxic and hypercapnic respiratory failure, suspected multifactorial, with stage IV lung cancer, COPD, and superimposed infection -Pulmonary recommendations appreciated. Pt started on levofloxacin and zosyn. Solumedrol administered. Oncology had a GoC discussion with her in light of her poor prognosis, and patient would like to go home with palliative care with transition to hospice in the coming days. Home oxygen prescribed. Discharged with 5 more days of levofloxacin. Poor perfusion to lower extremities -Vascular surgery consulted, but they could palpate LE pulses. CT Angio cancelled. Pt is a poor surgical candidate regardless. Acute toxic metabolic encephalopathy improved -Likely multifactorial in setting of hypercapnia and infection Acute kidney injury with dehydration improved Severe protein calorie malnutrition -Spinning Lathe Operator Automatic consulted Patient Condition at Discharge: Poor Plan - Discharge Summary Discharge Rx Participant: Yes New Discharge Prescriptions: New RX: levoFLOXacin 750 mg PO DAILY 1 Days #5 tab Continue RX: Nystatin 100,000 Unit/ml Susp [Mycostatin Oral Susp] 500,000 unit PO QID ml RX: Ipratropium-Albuterol Nebulize [Duoneb 0.5 mg-3 mg/3 ml Soln] 3 ml INHALATION RT-Q6H RX: Mirtazapine 7.5 mg PO HS RX: Potassium Chloride [Klor-Con 20] 20 meq PO BID RX: MORPHINE ORAL FEDERICA CONC 20mg/mL [Roxanol Oral Soln Conc 20MG/ML] 20 mg PO Q4H PRN PRN Reason: Severe Pain RX: Gabapentin [Neurontin] 100 mg PO BID RX: dexAMETHasone ORAL [Hexadrol] 4 mg PO BID #60 tab RX: Metoclopramide [Reglan] 5 mg PO AC-TID #90 tab RX: ALPRAZolam [Xanax] 0.5 mg PO Q6H RX: Lidocaine 5% Patch [Lidoderm 5% Patch] 2 patch TOPICAL HS RX: Furosemide [Lasix] 20 mg PO DAILY RX: Sennosides/Docusate Sodium [Senna-S 8.6-50 mg Tablet] 1 tab PO BID RX: Polyethylene Glycol 3350 [Miralax] 17 gm PO DAILY RX: Apixaban [Eliquis] 2.5 mg PO BID Discharge Medication List RX: Metoclopramide [Reglan] 5 mg PO AC-TID #90 tab 03/29/21 [Rx] RX: Nystatin 100,000 Unit/ml Susp [Mycostatin Oral Susp] 500,000 unit PO QID ml 03/29/21 [Rx] RX: dexAMETHasone ORAL [Hexadrol] 4 mg PO BID #60 tab 03/29/21 [Rx] RX: ALPRAZolam [Xanax] 0.5 mg PO Q6H 04/18/21 [History] RX: Apixaban [Eliquis] 2.5 mg PO BID 04/18/21 [History] RX: Furosemide [Lasix] 20 mg PO DAILY 04/18/21 [History] RX: Gabapentin [Neurontin] 100 mg PO BID 04/18/21 [History] RX: Ipratropium-Albuterol Nebulize [Duoneb 0.5 mg-3 mg/3 ml Soln] 3 ml INHALATION RT-Q6H 04/18/21 [History] RX: Lidocaine 5% Patch [Lidoderm 5% Patch] 2 patch TOPICAL HS 04/18/21 [History] RX: MORPHINE ORAL FEDERICA CONC 20mg/mL [Roxanol Oral Soln Conc 20MG/ML] 20 mg PO Q4H PRN 04/18/21 [History] RX: Mirtazapine 7.5 mg PO HS 04/18/21 [History] RX: Polyethylene Glycol 3350 [Miralax] 17 gm PO DAILY 04/18/21 [History] RX: Potassium Chloride [Klor-Con 20] 20 meq PO BID 04/18/21 [History] RX: Sennosides/Docusate Sodium [Senna-S 8.6-50 mg Tablet] 1 tab PO BID 04/18/21 [History] RX: levoFLOXacin 750 mg PO DAILY 1 Days #5 tab 04/20/21 [Rx] Follow up Appointment(s)/Referral(s): [facility], [NON-STAFF] - Trista Perez MD [Primary Care Provider] - 1-2 days Discharge Disposition: HOME WITH HOSPICE
--- NOTE | 2021-04-20 17:02 | P.PN ---
Subjective Progress Note Date: 04/20/21 Principal diagnosis: Metastatic non-small cell lung cancer, EGFR [id number] mutation Objective - Vital Signs Vital signs: Vital Signs Temp 97.9 F 04/20/21 12:00 Pulse 93 04/20/21 12:00 Resp 22 04/20/21 14:00 BP 99/63 04/20/21 12:00 Pulse Ox 94 L 04/20/21 12:00 Intake & Output 04/19/21 04/20/21 04/20/21 18:59 06:59 18:59 Weight 47.174 kg Other: Voiding Method Diaper Diaper Diaper # Voids 2 4 # Bowel Movements 2 2 - Labs CBC & Chem 7: 04/19/21 08:17 04/19/21 08:17 Labs: Abnormal Lab Results - Last 24 Hours (Table) 04/19/21 04/20/21 04/20/21 Range/Units 19:58 06:13 11:39 POC Glucose (mg/dL) 187 H 227 H 191 H (75-99) mg/dL Microbiology - Last 24 Hours (Table) 04/19/21 11:08 Blood Culture - Preliminary Blood No Growth after 24 hours 04/18/21 20:31 Blood Culture - Preliminary Blood No Growth after 24 hours Assessment and Plan (1) NSCLC with EGFR mutation Narrative/Plan: Had a long discussion with the patient and her family today. We clarified patient's wishes and goals. Plan of care developed from this. Did discuss with Attending Juhi Pt stable enough and her oxygen needs are low and stable enough for her to be discharged home. The patient and the family are well aware of her very delicate situation. Patient is going to be discharged on palliative care. With palliative care when the mutation specific medication is available they will decide if he would like to start. Patient and family both agreed that they do not want to return to the hospital. If patient condition were to decline at home they will work with palliative care and transition to hospice. They have been working with [facility] home care from the start and they feel that they u nderstand there situation and goals. All of their questions were answered to the best of my ability. Greater than 30 minutes was spent counseling and coordinating care with the patient, son and daughter. Discussed the case with Hole Filler and Attending. Status: Acute Priority: High Code(s): C34.90 - MALIGNANT NEOPLASM OF UNSP PART OF UNSP BRONCHUS OR LUNG SNOMED Code(s): 595948262 Time with Patient: Greater than 30
== END 2021-04-20 16:28 | disposition hospice, home (50) | DRG 180 ==
LOC: EC 16:31 → 3SCARD 19:13
PROVIDERS: ADMIT Internal Medicine; ATTEND Internal Medicine
PROC: 5A09457 Assistance with Respiratory Ventilation, 24-96 Consecutive Hours, Continuous Positive Airway Pressure (ICD-10-PCS; principal; 2021-04-18)
DX: C34.90 Malignant neoplasm of unspecified part of unspecified bronchus or lung (principal); E43 Unspecified severe protein-calorie malnutrition; G92.8 Other toxic encephalopathy; J96.01 Acute respiratory failure with hypoxia; J96.02 Acute respiratory failure with hypercapnia; C78.7 Secondary malignant neoplasm of liver and intrahepatic bile duct; C79.51 Secondary malignant neoplasm of bone; I82.513 Chronic embolism and thrombosis of femoral vein, bilateral; E87.1 Hypo-osmolality and hyponatremia; J91.0 Malignant pleural effusion; J98.11 Atelectasis; N17.9 Acute kidney failure, unspecified; Z68.1 Body mass index [BMI] 19.9 or less, adult; Z20.822 Contact with and (suspected) exposure to COVID-19; Z51.5 Encounter for palliative care; R00.0 Tachycardia, unspecified; I45.10 Unspecified right bundle-branch block; J44.9 Chronic obstructive pulmonary disease, unspecified; D69.6 Thrombocytopenia, unspecified; E86.0 Dehydration; E87.8 Other disorders of electrolyte and fluid balance, not elsewhere classified; Z73.9 Problem related to life management difficulty, unspecified; Z79.01 Long term (current) use of anticoagulants; Z79.899 Other long term (current) drug therapy; Z91.410 Personal history of adult physical and sexual abuse
CPT/HCPCS: 36415; 36600; 71045; 76604; 80053; 82805; 83605; 83880; 84550; 85025; 85610; 85730; 87040; 87635; 93005; 94640; 94660; 94760; 96374; 99285